=== PATIENT | female | born 1955 | race Caucasian/White ===

== ENCOUNTER → 2016-07-07 | Outpatient (CLI) | payer OTHER ==
[~2016-07-07] MED LIST: ALBU.5I NEB; ALBU0.08 NEB; ALBU0.086 INH; ATEN1TAB74 PO; ATEN50TA PO; AZIT250T3 PO; CIPR-9 PO; EXTR500C PO; EXTRTAB5 PO; IBUP800T23 PO; LISI-360 PO; LISI10TA3 PO; LOVA20TA PO; MACR100C2 PO; MELO7.5T4 PO; PRED20 PO; SIMV40TA PO; ZITHTAB PO
[2016-07-07 09:59] LABS: ALKALINE PHOSPHATASE 113 U/L (45-117); ALT (GPT) 57 U/L (10-53); ANION GAP 11 MEQ/L (5-15); AST (GOT) 97 U/L (15-37); BICARBONATE 25.4 MEQ/L (21.0-32.0); BLOOD UREA NITROGEN 14 MG/DL (7-18); CHLORIDE 103 MEQ/L (98-107); GLOMERULAR FILTRATION RATE 76 ML/MIN (>89); GLUCOSE,FASTING 88 MG/DL (74-99); HDL CHOLESTEROL 112.8 MG/DL (40.0-60.0); LDL CHOLESTEROL 198 MG/DL (0-99); POTASSIUM 3.7 MEQ/L (3.5-5.1); SODIUM (NA) 139 MEQ/L (136-145); TOTAL BILIRUBIN ADULT 0.4 MG/DL (0.2-1.0)
== END ==
LOC: CLAB 08:52
PROVIDERS: ATTEND Physician Assistant Medical
DX: M19.90 Unspecified osteoarthritis, unspecified site (principal); I10 Essential (primary) hypertension; F10.10 Alcohol abuse, uncomplicated; E78.5 Hyperlipidemia, unspecified
CPT/HCPCS: 36415; 80053; 80061; 84443

== ENCOUNTER 2016-09-09 09:14 | Emergency (ER) | payer OTHER ==
[~2016-09-09] VITALS: Ht 162.6 cm; Wt 68.0 kg
[~2016-09-09 09:14] MED LIST changes: -ALBU.5I NEB; -ALBU0.08 NEB; -ATEN1TAB74 PO; -AZIT250T3 PO; -CIPR-9 PO; -EXTR500C PO; -IBUP800T23 PO; -LISI-360 PO; -MACR100C2 PO; -MELO7.5T4 PO; -PRED20 PO; -SIMV40TA PO; -ZITHTAB PO
[2016-09-09 09:15] VITALS: BP 143/69; PULSE 78; RESP 15; TEMP 98.1; O2SAT 98
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
[2016-09-09] MEDS ORDERED: IBUP800T23 PO (09:41)
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
[2016-12-16] MEDS ORDERED: LOVA20TA PO (11:00)
[2016-12-16] MEDS ORDERED: ATEN50TA PO (11:00)
[2016-12-16] MEDS ORDERED: LISI10TA3 PO (11:00)
[2016-12-16] MEDS ORDERED: MELO7.5T4 PO (11:01)
[2016-12-16] MEDS ORDERED: ALBU.5I NEB (11:01)
[2016-12-16] MEDS ORDERED: ALBU0.08 NEB (13:57)
== END 2016-09-09 10:59 | disposition home or self-care (01) ==
LOC: NEPB 09:14
DX: S63.501A Unspecified sprain of right wrist, initial encounter (principal); S63.91XA Sprain of unspecified part of right wrist and hand, initial encounter; I10 Essential (primary) hypertension; E78.00 Pure hypercholesterolemia, unspecified; J44.9 Chronic obstructive pulmonary disease, unspecified; F17.210 Nicotine dependence, cigarettes, uncomplicated; W22.8XXA Striking against or struck by other objects, initial encounter; Y99.8 Other external cause status
CPT/HCPCS: 73110; 73130; 99283; L3908

== ENCOUNTER 2016-10-15 16:51 | Emergency (ER) | payer OTHER ==
[~2016-10-15] VITALS: Ht 162.6 cm; Wt 60.0 kg
[~2016-10-15 16:51] MED LIST changes: -ALBU0.086 INH; +IBUP800T23 PO
[2016-10-15 16:53] VITALS: BP 136/88; PULSE 72; RESP 16; TEMP 98.4; O2SAT 96
[2016-10-15 17:32] LABS: BACTERIA, URINE RARE /hpf; BLOOD, URINE NEG (NEG); COMMENT (UR) CULTURE INDICATED; CULTURE IF INDICATED CULTURE INDICATED; GLUCOSE,URINE NEG (NEG); KETONE, URINE NEG (NEG); SQUAMOUS EPITHELIAL CELL URINE <1 /hpf (0-5); URINE COLOR LIGHT-YELLOW (YELLW/STRAW)
[2016-10-15 17:33] LABS: NITRITE,URINE POS (NEG)
[2016-10-15] MEDS ORDERED: MACR100C2 PO (18:03)
--- NOTE | 2016-10-15 18:03 | PD ---
HPI Chief Complaint: Complaint Time Seen by Provider: 17:31 Travel History International Travel<30 days: No Contact w/Intl Traveler<30days: No Traveled to known affect area: No History of Present Illness HPI Patient is a 61 year old female who comes in complaining of lower abdominal pain , urgency and frequency that started this morning. She denies any fever or chills, nausea or vomiting. She denies any vaginal discharge. PFSH Past Medical History Arthritis: Yes Blood Disorders: No Anxiety: Yes Depression: Yes Heart Rhythm Problems: No Cancer: No Cardiac Catheterization: No Cardiovascular Problems: Yes (HTN ON MEDS) High Cholesterol: Yes Congestive Heart Failure: No COPD: Yes Diabetes: No Diminished Hearing: No Endocrine: No Gastrointestinal Disorders: Yes GERD: Yes Genitourinary: Yes (PROLAPSED BLADDER; URINARY INCONTINENCE) Hypertension: Yes Immune Disorder: No Musculoskeletal: No Neurologic: Yes Psychiatric: Yes Respiratory: Yes (PNEUMONIA MANY YRS AGO BRONCHITIS) Integumentary: Yes (RT KNEE ABSESS ? MRSA, L AXILLARY ABSCESS CURRENTLY BEING TREATED. ) Migraines: Yes Myocardial Infarction: No Menopausal: Yes : 4 Para: 2 Miscarriage: 2 Tubal Ligation: Yes Past Surgical History Abdominal Surgery: No Coronary Artery Bypass Graft: No Genitourinary Surgery: Yes (BLADDER REPAIR) Gynecologic Surgery: Yes Hysterectomy: Yes (PARTIAL 09/2007) Oral Surgery: Yes Tonsillectomy: Yes Family History Family Hypercholesterolemia: Yes Social History Alcohol Use: No Tobacco Use: Yes Substance Use: No Allergies-Medications (Allergen,Severity, Reaction): Coded Allergies: No Known Allergies (Verified , 10/15/16) Reported Meds & Prescriptions Reported Meds & Active Scripts Active Cipro (Ciprofloxacin HCl) 500 Mg Tab 500 Mg PO BID 5 Days Ibuprofen 800 Mg Tab 800 Mg PO Q6HR PRN Atenolol 50 Mg Tab 50 Mg PO DAILY Lisinopril 10 Mg Tab 10 Mg PO DAILY Lovastatin 20 Mg Tab 20 Mg PO DAILY Reported Extra Strength Pain Relief (Acetaminophen) 500 Mg Tab 1,000 Mg PO Q4-6H PRN Review of Systems General / Constitutional: No: Fever, Chills HENT: No: Headaches Cardiovascular: No: Chest Pain or Discomfort Respiratory: No: Shortness of Breath Gastrointestinal: Positive: Abdominal Pain, No: Nausea, Vomiting Genitourinary: Positive: Urgency, Frequency, Dysuria, No: Discharge Skin: No Rash, No Change in Pigmentation Physical Exam Narrative GENERAL: Awake and alert, in no acute distress. SKIN: Focused skin assessment warm/dry. HEAD: Atraumatic. Normocephalic. EYES: Pupils equal and round. No scleral icterus. ENT: Mucous membranes pink and moist. CARDIOVASCULAR: Regular rate and rhythm. No murmur appreciated. RESPIRATORY: No accessory muscle use. Clear to auscultation. Breath sounds equal bilaterally. GASTROINTESTINAL: Abdomen soft, nondistended. Mild suprapubic tenderness. No CVA tenderness. MUSCULOSKELETAL: No obvious deformities. No clubbing. No cyanosis. No edema. NEUROLOGICAL: Awake and alert. No obvious cranial nerve deficits. Motor grossly within normal limits. Normal speech. Data Data Last Documented VS Vital Signs Date Time Temp Pulse Resp B/P Pulse Ox O2 Delivery O2 Flow Rate FiO2 10/15/16 16:53 98.4 72 16 136/88 96 Orders Urinalysis - C+S If Indicated (10/15/16 17:05) Urine Culture (10/15/16 16:10) Ciprofloxacin (Cipro) (10/15/16 18:15) Labs Laboratory Tests Test 10/15/16 16:10 Urine Color LIGHT-YELLOW Urine Turbidity CLEAR Urine pH 6.0 Urine Specific [place] 1.006 Urine Protein NEG mg/dL Urine Glucose (UA) NEG mg/dL Urine Ketones NEG mg/dL Urine Occult Blood NEG Urine Nitrite POS Urine Bilirubin NEG Urine Urobilinogen LESS THAN 2.0 MG/DL Urine Leukocyte Esterase NEG Urine RBC 1 /hpf Urine WBC 1 /hpf Urine Squamous Epithelial <1 /hpf Cells Urine Bacteria RARE /hpf Microscopic Urinalysis Comment CULTURE INDICATED MDM Medical Decision Making Medical Screen Exam Complete: Yes Emergency Medical Condition: Yes Differential Diagnosis UTI versus pyelonephritis versus vaginitis Narrative Course Patient is a 61-year-old female comes in complaining of symptoms of a urinary tract infection. Exam shows some suprapubic tenderness, no CVA tenderness. Urinalysis is positive for nitrites. Patient has no systemic symptoms, vitals are all within normal limits. Patient will be discharged with prescription for Cipro, which is free at [facility] Advised to follow-up with her doctor. Advised to return to the ED as needed for any worsening symptoms. Diagnosis Primary Impression: Urinary tract infection Qualified Code: N30.00 - Acute cystitis without hematuria Patient Instructions: General Instructions, Urinary Tract Infection in Women ( ED) Additional Instructions: Take all of your antibiotic. Follow up with your doctor. Return to the ED as needed for any worsening symptoms. Scripts Ciprofloxacin (Cipro)500 Mg [id number] Mg PO BID 5 Days Ref 0 Prov:Jannie Judd MD 10/15/16 Disposition: 01 DISCHARGE HOME Condition: Stable Jannie Judd MD Oct 15, 2016 18:03
[2016-10-15] MEDS ORDERED: CIPR-9 PO (18:14)
[2016-10-15] MEDS ORDERED: CIPROFLOXACIN 500 MG TAB PO ONE (18:15)
[2016-12-16] MEDS ORDERED: ATEN50TA PO (11:00)
[2016-12-16] MEDS ORDERED: LOVA20TA PO (11:00)
[2016-12-16] MEDS ORDERED: LISI10TA3 PO (11:00)
[2016-12-16] MEDS ORDERED: ALBU.5I NEB (11:01)
[2016-12-16] MEDS ORDERED: MELO7.5T4 PO (11:01)
[2016-12-16] MEDS ORDERED: ALBU0.08 NEB (13:57)
== END 2016-10-15 18:22 | disposition home or self-care (01) ==
LOC: NEPD 16:51
DX: N39.0 Urinary tract infection, site not specified (principal); I10 Essential (primary) hypertension; J44.9 Chronic obstructive pulmonary disease, unspecified; E78.00 Pure hypercholesterolemia, unspecified; K21.9 Gastro-esophageal reflux disease without esophagitis; Z72.0 Tobacco use; B96.20 Unspecified Escherichia coli [E. coli] as the cause of diseases classified elsewhere
CPT/HCPCS: 81001; 87077; 87086; 87186; 99284

== ENCOUNTER 2016-11-04 17:11 | Emergency (ER) | payer OTHER ==
[~2016-11-04] VITALS: Ht 162.6 cm; Wt 65.0 kg
[~2016-11-04 17:11] MED LIST changes: +CIPR-9 PO
[2016-11-04 17:12] VITALS: BP 125/77; PULSE 76; RESP 16; TEMP 98.3; O2SAT 98
[2016-11-04] MEDS ORDERED: predniSONE 20 MG TAB PO STA (17:37)
[2016-11-04] MEDS ORDERED: PRED20 PO (17:41)
[2016-11-04] MEDS ORDERED: AZIT250T3 PO (17:41)
[2016-11-04] MEDS ORDERED: AZITHROMYCIN 250 MG TAB PO ONE (17:45)
--- NOTE | 2016-11-04 17:46 | PD ---
HPI Chief Complaint: Respiratory Symptoms Time Seen by Provider: 17:35 Travel History International Travel<30 days: No Contact w/Intl Traveler<30days: No Traveled to known affect area: No History of Present Illness HPI This is a 61-year-old female smoker with history of COPD/chronic bronchitis. She presents for evaluation of cough, worsened wheezing for 3-4 days. The cough is dry, worse tonight. Her wheezing seems to improve with the use of at home albuterol nebulizer solution. She has had this issue multiple times in the past, specifically she is requesting prednisone which seems to work excellently when she has these exacerbations, as well as an antibiotic. Denies any fevers, chills, shortness of breath, chest pain, recent travel, calf swelling. She has no other complaints at this time. PFSH Past Medical History Arthritis: Yes Blood Disorders: No Anxiety: Yes Depression: Yes Heart Rhythm Problems: No Cancer: No Cardiac Catheterization: No Cardiovascular Problems: Yes (HTN ) High Cholesterol: Yes Congestive Heart Failure: No COPD: Yes Diabetes: No Diminished Hearing: No Endocrine: No Gastrointestinal Disorders: Yes GERD: Yes Genitourinary: Yes (PROLAPSED BLADDER; URINARY INCONTINENCE) Hypertension: Yes Immune Disorder: No Musculoskeletal: No Neurologic: Yes Psychiatric: Yes Respiratory: Yes (BRONCHITIS , PNEUMONIA ) Integumentary: Yes (RT KNEE ABSESS ? MRSA, L AXILLARY ABSCESS CURRENTLY BEING TREATED. ) Migraines: Yes Myocardial Infarction: No ?: Not Menopausal: Yes : 4 Para: 2 Miscarriage: 2 Tubal Ligation: Yes Past Surgical History Abdominal Surgery: No Coronary Artery Bypass Graft: No Genitourinary Surgery: Yes (BLADDER REPAIR) Gynecologic Surgery: Yes Hysterectomy: Yes Oral Surgery: Yes Tonsillectomy: Yes Family History Family Hypercholesterolemia: Yes Social History Alcohol Use: No Tobacco Use: Yes Substance Use: No Allergies-Medications (Allergen,Severity, Reaction): Coded Allergies: No Known Allergies (Verified , 10/15/16) Reported Meds & Prescriptions Reported Meds & Active Scripts Active Prednisone 20 Mg Tab 20 Mg PO BID 5 Days Azithromycin 250 Mg Tab 250 Mg PO DAILY 4 Days Cipro (Ciprofloxacin HCl) 500 Mg Tab 500 Mg PO BID 5 Days Ibuprofen 800 Mg Tab 800 Mg PO Q6HR PRN Atenolol 50 Mg Tab 50 Mg PO DAILY Lisinopril 10 Mg Tab 10 Mg PO DAILY Lovastatin 20 Mg Tab 20 Mg PO DAILY Reported Extra Strength Pain Relief (Acetaminophen) 500 Mg Tab 1,000 Mg PO Q4-6H PRN Review of Systems Except as stated in HPI: all other systems reviewed are Neg Physical Exam Narrative GENERAL: This is a well-developed well-nourished female in no acute distress SKIN: Warm and dry. HEAD: Atraumatic. Normocephalic. EYES: Pupils equal and round. No scleral icterus. No injection or drainage. ENT: No nasal bleeding or discharge. Mucous membranes pink and moist. NECK: Trachea midline. No JVD. CARDIOVASCULAR: Regular rate and rhythm. No murmur appreciated. RESPIRATORY: No accessory muscle use. Clear to auscultation. Breath sounds equal bilaterally. There is wheezing bilaterally. No crackles. No tachypnea GASTROINTESTINAL: Abdomen soft, non-tender, nondistended. Hepatic and splenic margins not palpable. MUSCULOSKELETAL: No obvious deformities. No clubbing. No cyanosis. No edema. Data Data Last Documented VS Vital Signs Date Time Temp Pulse Resp B/P Pulse Ox O2 Delivery O2 Flow Rate FiO2 11/04/16 17:12 98.3 76 16 125/77 98 Orders Azithromycin (Zithromax) (11/04/16 17:45) Prednisone (Deltasone) (11/04/16 17:37) MDM Medical Decision Making Medical Screen Exam Complete: Yes Emergency Medical Condition: Yes Medical Record Reviewed: Yes Differential Diagnosis COPD exacerbation, bronchitis, pneumonia, reactive airway disease Narrative Course 61-year-old female presents with wheezing and dry cough for 3 days. Examination reveals mild wheezing bilaterally consistent with COPD exacerbation. Her vital signs are stable and she appears well. The plan would be to treat the patient with oral oral prednisone and azithromycin as well as albuterol nebulizer solution. She is declining DuoNeb therapy at this time because she has a bus that she wants to catch. She is stable for discharge. Diagnosis Primary Impression: COPD exacerbation Departure Forms: Tests/Procedures, Work Release Enter return to work date: November 05, 2016 Additional Instructions: Medication as prescribed. At home albuterol nebulizer as needed for wheezing. Follow up with primary care physician and return for any acutely new or worsening symptoms. Med/Other Pt SpecificInfo: Prescription(s) given Scripts Prednisone 20 Mg Tab20 Mg PO BID 5 Days Ref 0 Prov:Chi Cid MD 11/04/16 Azithromycin 250 Mg [id number] Mg PO DAILY 4 Days Ref 0 Prov:Chi Cid MD 11/04/16 Disposition: 01 DISCHARGE HOME Condition: Stable Mauro Greene November 04, 2016 17:45
[2016-12-16] MEDS ORDERED: ATEN50TA PO (11:00)
[2016-12-16] MEDS ORDERED: LISI10TA3 PO (11:00)
[2016-12-16] MEDS ORDERED: LOVA20TA PO (11:00)
[2016-12-16] MEDS ORDERED: MELO7.5T4 PO (11:01)
[2016-12-16] MEDS ORDERED: ALBU.5I NEB (11:01)
[2016-12-16] MEDS ORDERED: ALBU0.08 NEB (13:57)
== END 2016-11-04 18:23 | disposition home or self-care (01) ==
LOC: NEPD 17:11
DX: J44.1 Chronic obstructive pulmonary disease with (acute) exacerbation (principal); F17.210 Nicotine dependence, cigarettes, uncomplicated
CPT/HCPCS: 99282; J7512

== ENCOUNTER 2016-11-09 12:32 | Emergency (ER) | payer OTHER ==
[~2016-11-09] VITALS: Ht 162.6 cm; Wt 66.0 kg
[~2016-11-09 12:32] MED LIST changes: +AZIT250T3 PO; +PRED20 PO
[2016-11-09 12:36] VITALS: BP 106/75; PULSE 82; RESP 20; TEMP 97.2; O2SAT 98
--- NOTE | 2016-11-09 12:40 | PD ---
Physical Exam Date Seen by Provider: November 09, 2016 Time Seen by Provider: 12:37 Narrative 61 year old female presents to the emergency department for evaluation of shortness of breath, fatigue, tightness in chest, nausea, cough for 1 week ago. She reports history of COPD. Vital signs reviewed. Patient awaiting bed placement. [facility] Supervised Visit with DIONE: Charlene Johnson November 09, 2016 12:40
--- NOTE | 2016-11-09 13:29 | PD ---
HPI Chief Complaint: Respiratory Symptoms Time Seen by Provider: 13:29 Travel History International Travel<30 days: No Contact w/Intl Traveler<30days: No Traveled to known affect area: No History of Present Illness HPI 61-year-old with a history of chronic bronchitis/COPD, hypertension, hyperlipidemia presents to the emergency department for evaluation of productive cough, shortness of breath, weakness, subjective fever and chills. Patient states that she's had a cough with shortness of breath for the past 1.5 weeks. States that she has a history of chronic bronchitis and does continue to smoke cigarettes. States that her symptoms have been worsening. She was seen here in our emergency department 5 days ago and prescribed antibiotics and steroids but states she did not get these filled because she did not have the money. She denies any recent travel or sick contacts. States that she think she has pneumonia, has had pneumonia in the past with similar symptoms. She has been using albuterol nebulizer at home with minimal improvement of symptoms. No other complaints. PFSH Past Medical History Arthritis: Yes Blood Disorders: No Anxiety: Yes Depression: Yes Heart Rhythm Problems: No Cancer: No Cardiac Catheterization: No Cardiovascular Problems: Yes (HTN ) High Cholesterol: Yes Congestive Heart Failure: No COPD: Yes Diabetes: No Diminished Hearing: No Endocrine: No Gastrointestinal Disorders: Yes GERD: Yes Genitourinary: Yes (PROLAPSED BLADDER; URINARY INCONTINENCE) Hypertension: Yes Immune Disorder: No Musculoskeletal: No Neurologic: Yes Psychiatric: Yes Respiratory: Yes (BRONCHITIS , PNEUMONIA ) Integumentary: Yes (RT KNEE ABSESS ? MRSA, L AXILLARY ABSCESS CURRENTLY BEING TREATED. ) Migraines: Yes Myocardial Infarction: No ?: Not Menopausal: Yes : 4 Para: 2 Miscarriage: 2 Tubal Ligation: Yes Past Surgical History Abdominal Surgery: No Coronary Artery Bypass Graft: No Genitourinary Surgery: Yes (BLADDER REPAIR) Gynecologic Surgery: Yes Hysterectomy: Yes Oral Surgery: Yes Tonsillectomy: Yes Family History Family Hypercholesterolemia: Yes Social History Alcohol Use: No Tobacco Use: Yes (1/2 pack day) Substance Use: No Allergies-Medications (Allergen,Severity, Reaction): Coded Allergies: No Known Allergies (Verified , 11/09/16) Reported Meds & Prescriptions Reported Meds & Active Scripts Active Atenolol 50 Mg Tab 50 Mg PO DAILY Lisinopril 10 Mg Tab 10 Mg PO DAILY Lovastatin 20 Mg Tab 20 Mg PO DAILY Review of Systems Except as stated in HPI: all other systems reviewed are Neg Physical Exam Narrative GENERAL: Well-nourished and well-developed female patient in no acute distress who is nontoxic appearing. SKIN: Warm and dry. HEAD: Normocephalic and atraumatic. EYES: No injection, drainage, or hyphema noted. PERRLA. EOMI. ENT: No nasal drainage noted. Oropharynx is clear. NECK: Supple and the trachea is midline. CARDIOVASCULAR: Regular rate and rhythm. RESPIRATORY: Bilateral wheezing and rhonchi throughout. No accessory muscle use. GASTROINTESTINAL: Abdomen is soft, non-tender, and nondistended. MUSCULOSKELETAL: No obvious deformities, swelling, cyanosis, or ecchymosis is present throughout the upper and lower extremities. Patient has full range of motion without any signs of neurovascular compromise. NEUROLOGICAL: Awake, alert, and oriented. Normal speech and gait. Cranial nerves are grossly intact. Data Data Last Documented VS Vital Signs Date Time Temp Pulse Resp B/P Pulse Ox O2 Delivery O2 Flow Rate FiO2 11/09/16 13:52 98 21 11/09/16 12:36 97.2 82 20 106/75 Orders Complete Blood Count With Diff (11/09/16 13:26) Iv Access Insert/Monitor (11/09/16 13:26) Electrocardiogram (11/09/16 13:26) Ecg Monitoring (11/09/16 13:26) Oximetry (11/09/16 13:26) Chest, Pa & Lat (11/09/16 13:26) Sodium Chloride 0.9% Flush (Ns Flush) (11/09/16 13:30) Methylprednisolone So Succ Inj (Solumedr (11/09/16 13:30) Albuterol-Ipratropium Neb (Duoneb Neb) (11/09/16 13:30) Basic Metabolic Panel (Bmp) (11/09/16 13:26) Lactic Acid Sepsis Protocol (11/09/16 13:30) Azithromycin Inj (Zithromax Inj) (11/09/16 13:45) Potassium Chloride Eff (K-Lyte Cl Eff) (11/09/16 14:45) Labs Laboratory Tests Test 11/09/16 13:52 White Blood Count 5.4 TH/MM3 Red Blood Count 4.19 MIL/MM3 Hemoglobin 14.1 GM/DL Hematocrit 41.0 % Mean Corpuscular Volume 97.7 FL Mean Corpuscular Hemoglobin 33.6 PG Mean Corpuscular Hemoglobin 34.4 % Concent Red Cell Distribution Width 14.9 % Platelet Count 183 TH/MM3 Mean Platelet Volume 9.1 FL Neutrophils (%) (Auto) 59.6 % Lymphocytes (%) (Auto) 27.2 % Monocytes (%) (Auto) 10.7 % Eosinophils (%) (Auto) 1.8 % Basophils (%) (Auto) 0.7 % Neutrophils # (Auto) 3.2 TH/MM3 Lymphocytes # (Auto) 1.5 TH/MM3 Monocytes # (Auto) 0.6 TH/MM3 Eosinophils # (Auto) 0.1 TH/MM3 Basophils # (Auto) 0.0 TH/MM3 CBC Comment DIFF FINAL Differential Comment Sodium Level 141 MEQ/L Potassium Level 3.3 MEQ/L Chloride Level 105 MEQ/L Carbon Dioxide Level 27.6 MEQ/L Anion Gap 8 MEQ/L Blood Urea Nitrogen 16 MG/DL Creatinine 0.88 MG/DL Estimat Glomerular Filtration 66 ML/MIN Rate Random Glucose 94 MG/DL Lactic Acid Level 1.4 mmol/L Calcium Level 8.9 MG/DL [facility] Medical Decision Making Medical Screen Exam Complete: Yes Emergency Medical Condition: Yes Differential Diagnosis COPD exacerbation versus pneumonia versus acute on chronic bronchitis versus viral illness Narrative Course 61-year-old female presents to the emergency department for evaluation of cough , shortness of breath, weakness and subjective fevers. Patient is afebrile. Vital signs are stable. On physical examination she does have wheezing and rhonchi. She was seen here 5 days ago and prescribed antibiotics and steroids but did not get these medications filled. IV access is obtained, labs were drawn and sent. Patient is administered Solu-Medrol 125 mg IV, Zithromax 500 mg IV and DuoNebs EKG shows sinus rhythm with no acute ST elevations or depressions. CBC is unremarkable. BMP shows mild hypokalemia with a potassium of 3.3, otherwise unremarkable. This is repleted orally here in the ED. Lactic acid is unremarkable. Chest x-ray is negative for any acute abnormalities. Patient reassessed and her wheezing has improved, she reports improvement of symptoms as well. Oxygen saturations is 99% on room air. Patient will be discharged with prednisone, Zithromax and albuterol nebs. She is given coupons for these prescriptions. Counseled on smoking cessation. Advised follow-up with her PCP. Patient verbalizes understanding and agreement with treatment plan. Diagnosis Primary Impression: COPD exacerbation Referrals: Primary Care Physician Patient Instructions: COPD (Chronic Obstructive Pulmonary Disease) (ED), General Instructions Additional Instructions: Stop smoking cigarettes. Use nebulizer every 4-6 hours as prescribed. Take medications as prescribed with food and a full glass of water. Follow-up with your Primary Care Physician. Return to the ED for any acute worsening of symptoms. Med/Other Pt SpecificInfo: Prescription(s) given Disposition: 01 DISCHARGE HOME Condition: Stable Meagan Chance November 09, 2016 13:29
[2016-11-09] MEDS ORDERED: SODIUM CHLORIDE 0.9% FLUSH 10 ML FLUSH IVF PRN (13:30)
[2016-11-09] MEDS ORDERED: methylPREDNISolone SOD SUCC 125 MG/2 ML VIAL IVP ONE (13:30)
[2016-11-09] MEDS: RESP: ALBUTEROL 2.5 MG/IPRATROPIUM 0.5 MG NEB (SCH) INH (13:44)
[2016-11-09] MEDS ORDERED: AZITHROMYCIN INJ 500 MG in SODIUM CHLOR 0.9% 250 ML INJ 250 ML IV ONE (13:45)
[2016-11-09 13:52] VITALS: O2SAT 98
[2016-11-09 14:12] LABS: AUTOMATED NEUTROPHIL # 3.2 TH/MM3 (1.8-7.7); BASOPHIL % 0.7 % (0.0-2.0); EOSINOPHIL # 0.1 TH/MM3 (0-0.4); EOSINOPHIL % 1.8 % (0.0-4.0); HEMO FLAGS DIFF FINAL; LYMPH % 27.2 % (9.0-44.0); LYMPHOCYTE # 1.5 TH/MM3 (1.0-4.8); MEAN CELL VOLUME 97.7 FL (80.0-100.0); MEAN CORPUSCULAR HEMOGLOBIN 33.6 PG (27.0-34.0); MEAN CORPUSCULAR HGB CONC 34.4 % (32.0-36.0); MONO % 10.7 % (0.0-8.0); NEUT % 59.6 % (16.0-70.0); PLATELET COUNT 183 TH/MM3 (150-450); RED BLOOD COUNT 4.19 MIL/MM3 (4.00-5.30); RED CELL DISTRIBUTION WIDTH 14.9 % (11.6-17.2); WHITE BLOOD COUNT 5.4 TH/MM3 (4.0-11.0)
[2016-11-09 14:29] LABS: BICARBONATE 27.6 MEQ/L (21.0-32.0); POTASSIUM 3.3 MEQ/L (3.5-5.1)
[2016-11-09] MEDS ORDERED: POTASSIUM CHLORIDE 25 MEQ EFFERVESCENT TAB PO ONE (14:45)
--- NOTE | 2016-11-09 14:58 | RADRPT ---
EXAM DATE/TIME: 11/09/2016 14:56 [facility] COMPARISON: CHEST PA & LAT, May 30, 2015, 20:15. INDICATIONS : Short of breath, cough x 1.5 weeks. MEDICAL HISTORY : Arthritis. Hypertension Hypercholesterolemia. COPD. GERD. Prolapsed bladder. SURGICAL HISTORY : Tonsillectomy. Tubal ligation. Hysterectomy. Bladder repair. ENCOUNTER: Initial ACUITY: 2 weeks PAIN SCORE: 0/10 LOCATION: chest FINDINGS: PA and lateral views of the chest demonstrate the lungs to be symmetrically aerated without evidence of mass, infiltrate or effusion. The cardiomediastinal contours are unremarkable. Osseous structure s are intact. CONCLUSION: No acute disease. Piero Laughlin MD FACR on November 09, 2016 at 14:55 Board Certified Radiologist. This report was verified electronically.
[2016-11-09] MEDS ORDERED: PRED20 PO (15:09)
[2016-11-09] MEDS ORDERED: ALBU.5I NEB (15:09)
[2016-11-09] MEDS ORDERED: ZITHTAB PO (15:09)
--- NOTE | 2016-11-10 16:03 | EKG ---
Date Performed: 11/09/2016 Time Performed: 13:48:22 PTAGE: 61 years EKG: Sinus rhythm NONSPECIFIC ST & T-WAVE ABNORMALITY BORDERLINE ECG PREVIOUS TRACING : 12/23/2014 15.09 Compared to prior tracing no significant change DOCTOR: Pito Pope Interpretating Date/Time 11/10/2016 16:01:57
[2016-12-16] MEDS ORDERED: LOVA20TA PO (11:00)
[2016-12-16] MEDS ORDERED: LISI10TA3 PO (11:00)
[2016-12-16] MEDS ORDERED: ATEN50TA PO (11:00)
[2016-12-16] MEDS ORDERED: MELO7.5T4 PO (11:01)
[2016-12-16] MEDS ORDERED: ALBU.5I NEB (11:01)
[2016-12-16] MEDS ORDERED: ALBU0.08 NEB (13:57)
== END 2016-11-09 16:00 | disposition home or self-care (01) ==
LOC: NEPD 12:32
DX: J44.1 Chronic obstructive pulmonary disease with (acute) exacerbation (principal); I10 Essential (primary) hypertension; E78.5 Hyperlipidemia, unspecified; F17.210 Nicotine dependence, cigarettes, uncomplicated; E78.00 Pure hypercholesterolemia, unspecified; K21.9 Gastro-esophageal reflux disease without esophagitis
CPT/HCPCS: 71020; 80048; 83605; 85025; 93005; 94640; 94664; 96374; 96375; 99284; J0456; J2930; J7050

== ENCOUNTER → 2016-11-25 | Outpatient (CLI) | payer OTHER ==
[~2016-11-25] MED LIST changes: +ALBU.5I NEB; +ALBU0.08 NEB; -AZIT250T3 PO; -CIPR-9 PO; -EXTRTAB5 PO; -IBUP800T23 PO; +MELO7.5T4 PO; +ZITHTAB PO
[2016-11-25 09:18] LABS: HEMATOCRIT 40.4 % (35.0-46.0); MEAN CELL VOLUME 98.5 FL (80.0-100.0); MEAN CORPUSCULAR HEMOGLOBIN 34.9 PG (27.0-34.0); MEAN CORPUSCULAR HGB CONC 35.4 % (32.0-36.0); PLATELET COUNT 258 TH/MM3 (150-450); RED BLOOD COUNT 4.11 MIL/MM3 (4.00-5.30); RED CELL DISTRIBUTION WIDTH 15.9 % (11.6-17.2); REVIEW FLAG FINAL
[2016-11-25 09:50] LABS: ALKALINE PHOSPHATASE 104 U/L (45-117); ALT (GPT) 32 U/L (10-53); ANION GAP 10 MEQ/L (5-15); AST (GOT) 41 U/L (15-37); BICARBONATE 22.9 MEQ/L (21.0-32.0); BLOOD UREA NITROGEN 11 MG/DL (7-18); CHLORIDE 106 MEQ/L (98-107); GLOMERULAR FILTRATION RATE 80 ML/MIN (>89); GLUCOSE,FASTING 89 MG/DL (74-99); HDL CHOLESTEROL 104.4 MG/DL (40.0-60.0); LDL CHOLESTEROL 213 MG/DL (0-99); POTASSIUM 3.4 MEQ/L (3.5-5.1); SODIUM (NA) 139 MEQ/L (136-145); TOTAL BILIRUBIN ADULT 0.5 MG/DL (0.2-1.0)
== END ==
LOC: CLAB 09:01
PROVIDERS: ATTEND Nurse Practitioner Family
DX: E78.5 Hyperlipidemia, unspecified (principal); I10 Essential (primary) hypertension; F10.20 Alcohol dependence, uncomplicated
CPT/HCPCS: 36415; 80053; 80061; 85027

== ENCOUNTER 2017-03-24 20:48 | Emergency (ER) | payer OTHER ==
[~2017-03-24] VITALS: Ht 162.6 cm; Wt 70.0 kg
[~2017-03-24 20:48] MED LIST changes: -ALBU.5I NEB; -ATEN50TA PO; +MELO-1 PO; -MELO7.5T4 PO; +METO25TA3 PO; -PRED20 PO; -ZITHTAB PO
[2017-03-24 20:51] VITALS: BP 198/110; PULSE 103; RESP 16; TEMP 98.8; O2SAT 98
[2017-03-24] MEDS ORDERED: SODIUM CHLOR 0.9% 1000 ML INJ 1,000 ML IV SCH (21:06)
[2017-03-24] MEDS ORDERED: FAMOTIDINE 20 MG/2 ML VIAL IV PUSH ONE (21:15)
[2017-03-24] MEDS ORDERED: ONDANSETRON HCL 4 MG/2 ML VIAL IVP ONE (21:15)
[2017-03-24] MEDS ORDERED: LIDOCAINE VISCOUS 2% SOLN 15 ML UDC PO ONE (21:15)
[2017-03-24] MEDS ORDERED: PANTOPRAZOLE SODIUM 40 MG VIAL IVP ONE (21:15)
[2017-03-24] MEDS ORDERED: ALUMINUM/MAGNESIUM/SIMETH 30 ML CUP PO ONE (21:15)
--- NOTE | 2017-03-24 21:36 | PD ---
HPI Chief Complaint: GI Complaint Time Seen by Provider: 21:32 Travel History International Travel<30 days: No Contact w/Intl Traveler<30days: No Traveled to known affect area: No History of Present Illness HPI 61-year-old female that presents to the ED for evaluation of upper abdominal discomfort and possible sinusitis. Per patient she's had nausea and vomiting and diarrhea for the past 4 days. Per patient she originally thought that she might have eaten "bad hot dog ". Per patient she wasn't sure if this was related but continued to have the symptoms and she also developed some congestion as well as cough and she states that she's had similar episodes before and was diagnosed with sinusitis and was given medications to make her better. Per patient she feels a sensation of "sickness" from the stomach to the throat. She cannot really describe it to me other than stating that he feels "sick". She states that she hasn't actually had vomited but she actually feels nauseous and tried to make herself vomit to make herself feel better. Per patient diarrhea is better. She states the discomfort is 4 out of 10. Per patient she has no urinary symptoms. No blood from either end. No fevers chills or sweats. She does have a history of COPD. She is also concerned about mold in her house. PFSH Past Medical History Arthritis: Yes Blood Disorders: No Anxiety: Yes Depression: Yes Heart Rhythm Problems: No Cancer: No Cardiac Catheterization: No Cardiovascular Problems: Yes (HTN) High Cholesterol: Yes Congestive Heart Failure: No COPD: Yes Diabetes: No Diminished Hearing: No Endocrine: No Gastrointestinal Disorders: Yes GERD: Yes Genitourinary: Yes (PROLAPSED BLADDER; URINARY INCONTINENCE) Hypertension: Yes Immune Disorder: No Musculoskeletal: No Neurologic: Yes Psychiatric: Yes Respiratory: Yes (BRONCHITIS , PNEUMONIA ) Integumentary: Yes (RT KNEE ABSESS ? MRSA, L AXILLARY ABSCESS CURRENTLY BEING TREATED. ) Immunizations Current: Yes Migraines: Yes Myocardial Infarction: No Menopausal: Yes : 4 Para: 2 Miscarriage: 2 Tubal Ligation: Yes Past Surgical History Abdominal Surgery: No Coronary Artery Bypass Graft: No Genitourinary Surgery: Yes (BLADDER REPAIR) Gynecologic Surgery: Yes Hysterectomy: Yes Oral Surgery: Yes Tonsillectomy: Yes Family History Family Hypercholesterolemia: Yes Social History Alcohol Use: No Tobacco Use: Yes (1/2 pack day) Substance Use: No Allergies-Medications (Allergen,Severity, Reaction): Coded Allergies: No Known Allergies (Verified , 03/24/17) Reported Meds & Prescriptions Reported Meds & Active Scripts Active Zantac (Ranitidine HCl) 150 Mg Tab 150 Mg PO BID Zofran (Ondansetron HCl) 4 Mg Tab 4 Mg PO Q6HR PRN Amoxicillin 875 Mg Tab 875 Mg PO BID 10 Days Metoprolol Tartrate 25 Mg Tab 25 Mg PO BID Meloxicam 15 Mg Tab 15 Mg PO DAILY Albuterol Neb (Albuterol Sulfate) 2.5 Mg/3 Ml Neb 2.5 Mg NEB Q4HR NEB PRN Lisinopril 10 Mg Tab 10 Mg PO DAILY Lovastatin 20 Mg Tab 20 Mg PO DAILY Review of Systems Except as stated in HPI: all other systems reviewed are Neg Physical Exam Narrative GENERAL: Well-nourished, well-developed patient in no apparent distress. SKIN: Warm and dry. HEAD: Atraumatic. Normocephalic. EYES: Pupils equal and round reactive to light and accommodation. No scleral icterus. No injection or drainage. ENT: No nasal bleeding or discharge. Mucous membranes pink and moist. TMs are clear with no sign of infection or perforation. No mastoid tenderness. Ear canals are intact bilaterally. No lymphadenopathy. Nostril mucosa is red and moist with clear mucus noted. No sinus tenderness to palpation noted. Tonsils are not enlarged or swollen. No ulvua Deviation. Tongue is midline. NECK: Trachea midline. No JVD. No meningeal signs noted CARDIOVASCULAR: Regular rate and rhythm. RESPIRATORY: No accessory muscle use. Clear to auscultation. Breath sounds equal bilaterally. GASTROINTESTINAL: Abdomen soft, non-tender, nondistended. Hepatic and splenic margins not palpable. MUSCULOSKELETAL: Extremities without clubbing, cyanosis, or edema. No obvious deformities. Full range of motion of the upper and lower extremity is bilaterally. 2+ pulses bilaterally. NEUROLOGICAL: Awake and alert. No obvious cranial nerve deficits. Motor grossly within normal limits. Five out of 5 muscle strength in the arms and legs. Normal speech. PSYCHIATRIC: Appropriate mood and affect; insight and judgment normal. Data Data Last Documented VS Vital Signs Date Time Temp Pulse Resp B/P (MAP) Pulse Ox O2 Delivery O2 Flow Rate FiO2 03/24/17 20:51 98.8 103 16 198/110 (139) 98 Room Air Orders Orders Iv Access Insert/Monitor (03/24/17 21:06) Ondansetron Inj (Zofran Inj) (03/24/17 21:15) Pantoprazole Inj (Protonix Inj) (03/24/17 21:15) Sodium Chlor 0.9% 1000 Ml Inj (Ns 1000 M (03/24/17 21:06) Famotidine Inj (Pepcid Inj) (03/24/17 21:15) Al-Mag Hy-Si 40-40-4 Mg/Ml Liq (Mag-Al P (03/24/17 21:15) Lidocaine 2% Viscous (Xylocaine 2% Visco (03/24/17 21:15) Chest, Single Ap (03/24/17 ) Complete Blood Count With Diff (03/24/17 21:31) Comprehensive Metabolic Panel (03/24/17 21:31) Lipase (03/24/17 21:31) Labs Laboratory Tests Test 03/24/17 21:20 White Blood Count 7.5 TH/MM3 Red Blood Count 4.44 MIL/MM3 Hemoglobin 15.6 GM/DL Hematocrit 45.2 % Mean Corpuscular Volume 101.8 FL Mean Corpuscular Hemoglobin 35.1 PG Mean Corpuscular Hemoglobin Concent 34.5 % Red Cell Distribution Width 14.8 % Platelet Count 247 TH/MM3 Mean Platelet Volume 9.1 FL Neutrophils (%) (Auto) 79.9 % Lymphocytes (%) (Auto) 7.8 % Monocytes (%) (Auto) 10.9 % Eosinophils (%) (Auto) 0.5 % Basophils (%) (Auto) 0.9 % Neutrophils # (Auto) 6.0 TH/MM3 Lymphocytes # (Auto) 0.6 TH/MM3 Monocytes # (Auto) 0.8 TH/MM3 Eosinophils # (Auto) 0.0 TH/MM3 Basophils # (Auto) 0.1 TH/MM3 CBC Comment DIFF FINAL Differential Comment Blood Urea Nitrogen 7 MG/DL Creatinine 0.84 MG/DL Random Glucose 91 MG/DL Total Protein 7.7 GM/DL Albumin 4.0 GM/DL Calcium Level 9.4 MG/DL Alkaline Phosphatase 134 U/L Aspartate Amino Transf (AST/SGOT) 169 U/L Alanine Aminotransferase (ALT/SGPT) 63 U/L Total Bilirubin 0.6 MG/DL Sodium Level 135 MEQ/L Potassium Level 3.7 MEQ/L Chloride Level 104 MEQ/L Carbon Dioxide Level 21.6 MEQ/L Anion Gap 9 MEQ/L Estimat Glomerular Filtration Rate 69 ML/MIN Lipase 115 U/L MDM Medical Decision Making Medical Screen Exam Complete: Yes Emergency Medical Condition: Yes Medical Record Reviewed: Yes Interpretation(s) CBC & BMP Diagram 03/24/17 21:20 Total Protein 7.7, Albumin 4.0, Calcium Level 9.4, Alkaline Phosphatase 134 H, Aspartate Amino Transf (AST/SGOT) 169 H, Alanine Aminotransferase (ALT/SGPT) 63 H, Total Bilirubin 0.6 Differential Diagnosis Abdominal pain versus epigastric pain versus gastritis versus gastroenteritis versus sinusitis versus pneumonia versus pancreatitis Narrative Course 61-year-old female that presents to the ED for evaluation of nausea and vomited and abdominal pain as well as congestion. Patient was properly examined and was found to have signs and symptoms which appear to be consistent with possible gastroenteritis versus gastritis versus pancreatitis versus sinusitis. At this time I recommend labs and imaging. Patient agrees with this. Patient was given IV pain medications and fluids. Labs were ordered. Labs showed slightly elevated LFTs otherwise unremarkable. Lipase is within normal limits. No sign of electrolyte abnormality. Patient was reassessed and feels improved. Patient will be sent home with prescriptions for amoxicillin, Zantac , Zofran. Told to follow with PCP. See ED worsening symptoms. Take plenty of fluids. All questions were answered to the best of my ability. Diagnosis Primary Impression: Gastritis Qualified Codes: K29.20 - Alcoholic gastritis without bleeding Additional Impressions: Sinusitis Qualified Codes: J01.10 - Acute frontal sinusitis, unspecified Nausea Patient Instructions: General Instructions Additional Instructions: Follow with her doctor. See ED worsening symptoms. Take medications as prescribed. Drink plenty of fluids. Med/Other Pt SpecificInfo: Prescription(s) given Scripts Ranitidine (Zantac) 150 Mg Tab 150 MG PO BID for Reduce Stomach Acid, #20 TAB 0 Refills Prov: Fadi Waters MD 03/24/17 Ondansetron (Zofran) 4 Mg Tab 4 MG PO Q6HR Y for NAUSEA OR VOMITING, #14 TAB 0 Refills Prov: Fadi Waters MD 03/24/17 Amoxicillin (Amoxicillin) 875 Mg Tab 875 MG PO BID for Infection for 10 Days, #20 TAB 0 Refills Prov: Fadi Waters MD 03/24/17 Disposition: 01 DISCHARGE HOME Condition: Puneet Liu Mar 24, 2017 21:36
--- NOTE | 2017-03-24 21:40 | RADRPT ---
EXAM DATE/TIME: 03/24/2017 21:10 [facility] COMPARISON: CHEST PA & LAT, November 09, 2016, 14:56. INDICATIONS : Short of breath. MEDICAL HISTORY : Chronic obstructive pulmonary disease. Hypertension SURGICAL HISTORY : None. ENCOUNTER: Initial ACUITY: 4 - 6 days PAIN SCORE: 0/10 LOCATION: Bilateral chest FINDINGS: Minimal bibasilar atelectasis and/or scarring is noted. The heart and mediastinal structures are nor mal. The pulmonary vascular pattern is also normal. CONCLUSION: 1. Minimal bibasilar atelectasis and/or fibrotic scarring. 2. No focal alveolar consolidation or pulmonary edema. Mak Robledo MD on March 24, 2017 at 21:29 Board Certified Radiologist. This report was verified electronically.
[2017-03-24] MEDS ORDERED: AMOX875T PO (21:51)
[2017-03-24] MEDS ORDERED: ZOFR4TAB PO (21:51)
[2017-03-24 21:53] LABS: BASOPHIL # 0.1 TH/MM3 (0-0.2); BASOPHIL % 0.9 % (0.0-2.0); EOSINOPHIL % 0.5 % (0.0-4.0); HEMATOCRIT 45.2 % (35.0-46.0); HEMO FLAGS DIFF FINAL; LYMPH % 7.8 % (9.0-44.0); LYMPHOCYTE # 0.6 TH/MM3 (1.0-4.8); MEAN CELL VOLUME 101.8 FL (80.0-100.0); MEAN CORPUSCULAR HEMOGLOBIN 35.1 PG (27.0-34.0); MEAN CORPUSCULAR HGB CONC 34.5 % (32.0-36.0); MONO % 10.9 % (0.0-8.0); NEUT % 79.9 % (16.0-70.0); PLATELET COUNT 247 TH/MM3 (150-450); RED BLOOD COUNT 4.44 MIL/MM3 (4.00-5.30); RED CELL DISTRIBUTION WIDTH 14.8 % (11.6-17.2); WHITE BLOOD COUNT 7.5 TH/MM3 (4.0-11.0)
[2017-03-24 22:15] LABS: ANION GAP 9 MEQ/L (5-15); AST (GOT) 169 U/L (15-37); BICARBONATE 21.6 MEQ/L (21.0-32.0); BLOOD UREA NITROGEN 7 MG/DL (7-18); CHLORIDE 104 MEQ/L (98-107); GLOMERULAR FILTRATION RATE 69 ML/MIN (>89); POTASSIUM 3.7 MEQ/L (3.5-5.1); SODIUM (NA) 135 MEQ/L (136-145)
[2017-03-24 22:17] LABS: ALT (GPT) 63 U/L (10-53)
[2017-03-24 22:18] LABS: ALKALINE PHOSPHATASE 134 U/L (45-117); TOTAL BILIRUBIN ADULT 0.6 MG/DL (0.2-1.0)
[2017-03-24] MEDS ORDERED: ZANT150T2 PO (22:18)
[2017-03-24] MEDS ORDERED: ONDANSETRON ODT 4 MG TAB PO ONE (22:30)
== END 2017-03-24 23:01 | disposition home or self-care (01) ==
LOC: NEPE 20:48
DX: K29.70 Gastritis, unspecified, without bleeding (principal); J01.10 Acute frontal sinusitis, unspecified; R05 Cough; I10 Essential (primary) hypertension; E78.00 Pure hypercholesterolemia, unspecified; F17.200 Nicotine dependence, unspecified, uncomplicated; Z87.39 Personal history of other diseases of the musculoskeletal system and connective tissue; Z87.09 Personal history of other diseases of the respiratory system; Z86.59 Personal history of other mental and behavioral disorders; Z86.79 Personal history of other diseases of the circulatory system; Z87.19 Personal history of other diseases of the digestive system; Z87.448 Personal history of other diseases of urinary system; Z86.69 Personal history of other diseases of the nervous system and sense organs; Z87.2 Personal history of diseases of the skin and subcutaneous tissue
CPT/HCPCS: 71010; 80053; 83690; 85025; 96361; 96374; 96375; 99284; C9113; J2405; J7030

== ENCOUNTER 2017-05-30 07:52 | Emergency (ER) | payer OTHER ==
[~2017-05-30] VITALS: Ht 162.6 cm; Wt 67.0 kg
[~2017-05-30 07:52] MED LIST changes: +AMOX875T PO; -MELO-1 PO; +MELO15TA20 PO; +ZANT150T2 PO; +ZOFR4TAB PO
[2017-05-30 07:53] VITALS: BP 169/102; PULSE 121; RESP 17; TEMP 100; O2SAT 100
[2017-05-30 08:13] VITALS: BP 125/84; PULSE 111; RESP 20; O2SAT 100
[2017-05-30] MEDS ORDERED: SODIUM CHLOR 0.9% 1000 ML INJ 1,000 ML IV SCH (08:18)
--- NOTE | 2017-05-30 08:24 | PD ---
HPI Chief Complaint: Complaint Time Seen by Provider: 08:21 Travel History International Travel<30 days: No Contact w/Intl Traveler<30days: No Traveled to known affect area: No History of Present Illness HPI 61-year-old female patient with history of hypertension, presents to the ER today for several days history of lower abdominal discomfort with radiation to the back, nausea, burning on urination and urinary urgency. She denies any vomiting, diarrhea, or other issues. Pain is rated a 10 out of 10. Modifying Factors: None Associated Signs & Symptoms: Urinary symptoms, lower abdominal and back pain Risk Factors: None PFSH Past Medical History Arthritis: Yes Blood Disorders: No Anxiety: Yes Depression: Yes Heart Rhythm Problems: No Cancer: No Cardiac Catheterization: No Cardiovascular Problems: Yes (HTN) High Cholesterol: Yes Congestive Heart Failure: No COPD: Yes Diabetes: No Diminished Hearing: No Endocrine: No Gastrointestinal Disorders: Yes GERD: Yes Genitourinary: Yes (PROLAPSED BLADDER; URINARY INCONTINENCE) Hypertension: Yes Immune Disorder: No Musculoskeletal: No Neurologic: Yes Psychiatric: Yes Respiratory: Yes (BRONCHITIS , PNEUMONIA ) Integumentary: Yes (RT KNEE ABSESS ? MRSA, L AXILLARY ABSCESS CURRENTLY BEING TREATED. ) Immunizations Current: Yes Migraines: Yes Myocardial Infarction: No ?: Not Menopausal: Yes : 4 Para: 2 Miscarriage: 2 Tubal Ligation: Yes Past Surgical History Abdominal Surgery: No Coronary Artery Bypass Graft: No Genitourinary Surgery: Yes (BLADDER REPAIR) Gynecologic Surgery: Yes Hysterectomy: Yes Oral Surgery: Yes Tonsillectomy: Yes Family History Family Hypercholesterolemia: Yes Social History Alcohol Use: Yes (occas) Tobacco Use: Yes (1/2 pack day) Substance Use: No Allergies-Medications (Allergen,Severity, Reaction): Coded Allergies: No Known Allergies (Verified Adverse Reaction, Unknown, 05/30/17) Reported Meds & Prescriptions Reported Meds & Active Scripts Active Zantac (Ranitidine HCl) 150 Mg Tab 150 Mg PO BID Metoprolol Tartrate 25 Mg Tab 25 Mg PO BID Meloxicam 15 Mg Tab 15 Mg PO DAILY Albuterol Neb (Albuterol Sulfate) 2.5 Mg/3 Ml Neb 2.5 Mg NEB Q4HR NEB PRN Lisinopril 10 Mg Tab 10 Mg PO DAILY Lovastatin 20 Mg Tab 20 Mg PO DAILY Review of Systems Except as stated in HPI: all other systems reviewed are Neg Physical Exam Narrative GENERAL: Well-developed elderly white female patient currently in mild distress. Awake and oriented 3. SKIN: Focused skin assessment warm/dry. HEAD: Atraumatic. Normocephalic. EYES: Pupils equal and round. No scleral icterus. No injection or drainage. ENT: No nasal bleeding or discharge. Mucous membranes pink and moist. NECK: Trachea midline. No JVD. CARDIOVASCULAR: Regular rate and rhythm. No murmur appreciated. RESPIRATORY: No accessory muscle use. Clear to auscultation. Breath sounds equal bilaterally. GASTROINTESTINAL: Abdomen soft, mild suprapubic tenderness without guarding or rebound, nondistended. Hepatic and splenic margins not palpable. MUSCULOSKELETAL: No obvious deformities. No clubbing. No cyanosis. No edema. NEUROLOGICAL: Awake and alert. No obvious cranial nerve deficits. Motor grossly within normal limits. Normal speech. PSYCHIATRIC: Appropriate mood and affect; insight and judgment normal. Data Data Last Documented VS Vital Signs Date Time Temp Pulse Resp B/P (MAP) Pulse Ox O2 Delivery O2 Flow Rate FiO2 05/30/17 08:13 111 20 125/84 (98) 100 Room Air 05/30/17 07:53 100.0 Orders Orders Complete Blood Count With Diff (05/30/17 08:18) Comprehensive Metabolic Panel (05/30/17 08:18) Lipase (05/30/17 08:18) Urinalysis - C+S If Indicated (05/30/17 08:18) Iv Access Insert/Monitor (05/30/17 08:18) Ecg Monitoring (05/30/17 08:18) Oximetry (05/30/17 08:18) Sodium Chlor 0.9% 1000 Ml Inj (Ns 1000 M (05/30/17 08:18) Sodium Chloride 0.9% Flush (Ns Flush) (05/30/17 08:30) Ketorolac Inj (Toradol Inj) (05/30/17 08:30) Ondansetron Inj (Zofran Inj) (05/30/17 08:30) Urine Culture (05/30/17 08:20) Blood Culture (05/30/17 08:53) Lactic Acid Sepsis Protocol (05/30/17 08:53) Piperacil-Tazo 4.5 Gm Premix (Zosyn 4.5 (05/30/17 08:53) Ed Discharge Order (05/30/17 09:52) Labs Laboratory Tests Test 05/30/17 08:20 05/30/17 09:05 White Blood Count 14.0 TH/MM3 Red Blood Count 4.41 MIL/MM3 Hemoglobin 15.6 GM/DL Hematocrit 45.5 % Mean Corpuscular Volume 103.1 FL Mean Corpuscular Hemoglobin 35.2 PG Mean Corpuscular Hemoglobin Concent 34.2 % Red Cell Distribution Width 14.3 % Platelet Count 171 TH/MM3 Mean Platelet Volume 8.6 FL Neutrophils (%) (Auto) 90.1 % Lymphocytes (%) (Auto) 2.5 % Monocytes (%) (Auto) 6.9 % Eosinophils (%) (Auto) 0.0 % Basophils (%) (Auto) 0.5 % Neutrophils # (Auto) 12.6 TH/MM3 Lymphocytes # (Auto) 0.3 TH/MM3 Monocytes # (Auto) 1.0 TH/MM3 Eosinophils # (Auto) 0.0 TH/MM3 Basophils # (Auto) 0.1 TH/MM3 CBC Comment DIFF FINAL Differential Comment Urine Color YELLOW Urine Turbidity HAZY Urine pH 6.0 Urine Specific [place] 1.016 Urine Protein 300 mg/dL Urine Glucose (UA) NEG mg/dL Urine Ketones NEG mg/dL Urine Occult Blood SMALL Urine Nitrite POS Urine Bilirubin NEG Urine Urobilinogen 2.0 MG/DL Urine Leukocyte Esterase LARGE Urine RBC 8 /hpf Urine WBC /hpf Urine WBC Clumps FEW Urine Squamous Epithelial Cells 2 /hpf Urine Bacteria MANY /hpf Urine Mucus FEW /lpf Microscopic Urinalysis Comment CULTURE INDICATED Blood Urea Nitrogen 9 MG/DL Creatinine 1.00 MG/DL Random Glucose 100 MG/DL Total Protein 7.8 GM/DL Albumin 3.5 GM/DL Calcium Level 8.9 MG/DL Alkaline Phosphatase 177 U/L Aspartate Amino Transf (AST/SGOT) 56 U/L Alanine Aminotransferase (ALT/SGPT) 25 U/L Total Bilirubin 2.4 MG/DL Sodium Level 132 MEQ/L Potassium Level 3.2 MEQ/L Chloride Level 99 MEQ/L Carbon Dioxide Level 20.9 MEQ/L Anion Gap 12 MEQ/L Estimat Glomerular Filtration Rate 57 ML/MIN Lipase 127 U/L Lactic Acid Level 0.9 mmol/L MDM Medical Decision Making Medical Screen Exam Complete: Yes Emergency Medical Condition: Yes Medical Record Reviewed: Yes Interpretation(s) Laboratory Tests Test 05/30/17 08:20 05/30/17 09:05 White Blood Count 14.0 TH/MM3 (4.0-11.0) Hemoglobin 15.6 GM/DL (11.6-15.3) Mean Corpuscular Volume 103.1 FL (80.0-100.0) Mean Corpuscular Hemoglobin 35.2 PG (27.0-34.0) Neutrophils (%) (Auto) 90.1 % (16.0-70.0) Lymphocytes (%) (Auto) 2.5 % (9.0-44.0) Neutrophils # (Auto) 12.6 TH/MM3 (1.8-7.7) Lymphocytes # (Auto) 0.3 TH/MM3 (1.0-4.8) Monocytes # (Auto) 1.0 TH/MM3 (0-0.9) Urine Turbidity HAZY (CLEAR) Urine Protein 300 mg/dL (NEG-TRACE) Urine Occult Blood SMALL (NEG) Urine Nitrite POS (NEG) Urine Leukocyte Esterase LARGE (NEG) Urine RBC 8 /hpf (0-3) Urine WBC Clumps FEW (NONE) Urine Bacteria MANY /hpf (NONE) Urine Mucus FEW /lpf (OCC) Alkaline Phosphatase 177 U/L (45-117) Aspartate Amino Transf (AST/SGOT) 56 U/L (15-37) Total Bilirubin 2.4 MG/DL (0.2-1.0) Sodium Level 132 MEQ/L (136-145) Potassium Level 3.2 MEQ/L (3.5-5.1) Carbon Dioxide Level 20.9 MEQ/L (21.0-32.0) Estimat Glomerular Filtration Rate 57 ML/MIN (>89) Differential Diagnosis Urinary symptoms, abdominal discomfort, nausea, back pains: UTI versus pyelonephritis versus gastroenteritis versus renal colic Narrative Course Lab work shows significant UTI. She was given IV antibiotics after blood cultures were drawn. She has leukocytosis and lactate was normal. Vital signs are stable in the ER. She was given IV fluids as well. At this point, my plan would be to release the patient with further by mouth antibiotics and close follow-up to primary care doctor. Return for worsening in symptoms as necessary. The plan has been discussed with her and she states understanding. Diagnosis Primary Impression: Urinary tract infection Med/Other Pt SpecificInfo: Prescription(s) given Scripts Sulfamethoxazole-Trimethoprim (Bactrim DS) 800-160 Mg Tab 1 TAB PO BID for Infection, #14 TAB 0 Refills Prov: Germania Bowden MD 05/30/17 Disposition: 01 DISCHARGE HOME Condition: Stable Germania Bowden MD May 30, 2017 08:24
[2017-05-30 08:29] LABS: AUTOMATED NEUTROPHIL # 12.6 TH/MM3 (1.8-7.7); BASOPHIL # 0.1 TH/MM3 (0-0.2); BASOPHIL % 0.5 % (0.0-2.0); HEMATOCRIT 45.5 % (35.0-46.0); HEMO FLAGS DIFF FINAL; LYMPH % 2.5 % (9.0-44.0); LYMPHOCYTE # 0.3 TH/MM3 (1.0-4.8); MEAN CELL VOLUME 103.1 FL (80.0-100.0); MEAN CORPUSCULAR HEMOGLOBIN 35.2 PG (27.0-34.0); MEAN CORPUSCULAR HGB CONC 34.2 % (32.0-36.0); MONO % 6.9 % (0.0-8.0); NEUT % 90.1 % (16.0-70.0); PLATELET COUNT 171 TH/MM3 (150-450); RED BLOOD COUNT 4.41 MIL/MM3 (4.00-5.30); RED CELL DISTRIBUTION WIDTH 14.3 % (11.6-17.2)
[2017-05-30] MEDS ORDERED: KETOROLAC TROMETHAMINE 30 MG/ML (IVP) VIAL IV PUSH ONE (08:30)
[2017-05-30] MEDS ORDERED: SODIUM CHLORIDE 0.9% FLUSH 10 ML FLUSH IV FLUSH PRN (08:30)
[2017-05-30] MEDS ORDERED: ONDANSETRON HCL 4 MG/2 ML VIAL IV PUSH ONE (08:30)
[2017-05-30 08:39] LABS: BACTERIA, URINE MANY /hpf; BLOOD, URINE SMALL (NEG); COMMENT (UR) CULTURE INDICATED; CULTURE IF INDICATED CULTURE INDICATED; GLUCOSE,URINE NEG (NEG); KETONE, URINE NEG (NEG); MUCUS URINE FEW /lpf (OCC); NITRITE,URINE POS (NEG); SQUAMOUS EPITHELIAL CELL URINE 2 /hpf (0-5); URINE COLOR YELLOW (YELLW/STRAW)
[2017-05-30 08:52] LABS: ALT (GPT) 25 U/L (10-53); ANION GAP 12 MEQ/L (5-15); AST (GOT) 56 U/L (15-37); BICARBONATE 20.9 MEQ/L (21.0-32.0); BLOOD UREA NITROGEN 9 MG/DL (7-18); CHLORIDE 99 MEQ/L (98-107); GLOMERULAR FILTRATION RATE 57 ML/MIN (>89); POTASSIUM 3.2 MEQ/L (3.5-5.1); SODIUM (NA) 132 MEQ/L (136-145)
[2017-05-30] MEDS ORDERED: PIPERACIL-TAZO 4.5 GM PREMIX 100 ML IV STA (08:53)
[2017-05-30 08:55] LABS: ALKALINE PHOSPHATASE 177 U/L (45-117); TOTAL BILIRUBIN ADULT 2.4 MG/DL (0.2-1.0)
[2017-05-30] MEDS ORDERED: BACT800T5 PO (09:57)
== END 2017-05-30 10:23 | disposition home or self-care (01) ==
LOC: NEPE 07:52
DX: N39.0 Urinary tract infection, site not specified (principal); B96.20 Unspecified Escherichia coli [E. coli] as the cause of diseases classified elsewhere
CPT/HCPCS: 80053; 81001; 83605; 83690; 85025; 87040; 87077; 87086; 87186; 87205; 96374; 96375; 99284; J1885; J2405; J2543; J7030

== ENCOUNTER 2017-06-04 16:51 | Emergency (ER) | payer OTHER ==
[~2017-06-04] VITALS: Ht 162.6 cm; Wt 67.0 kg
[~2017-06-04 16:51] MED LIST changes: -AMOX875T PO; +BACT800T5 PO; -ZOFR4TAB PO
[2017-06-04 16:52] VITALS: BP 177/98; PULSE 95; RESP 18; TEMP 97.6; O2SAT 98
[2017-06-04] MEDS ORDERED: MACR100C2 PO (18:12)
[2017-06-04] MEDS ORDERED: cefTRIAXone INJ 1,000 MG in SODIUM CHLORIDE 0.9% INJ 100 ML IV ONE (18:30)
[2017-06-04] MEDS ORDERED: CIPR-9 PO (19:31)
--- NOTE | 2017-06-04 19:31 | PD ---
HPI Chief Complaint: Abnormal Results Time Seen by Provider: 18:15 Travel History International Travel<30 days: No Contact w/Intl Traveler<30days: No Traveled to known affect area: No History of Present Illness HPI This 61-year-old woman who presents to the emergency department complaining of UTI. She was seen recently for urinary tract infection, some low-grade fevers, and had blood cultures drawn. Urine and blood was positive for Escherichia coli. Escherichia coli was resistant to Bactrim. She received a phone call to change to Bactrim to Macrobid, but received a second phone call to return to the emergency department because of positive blood cultures. She overall is felt much better without nausea vomiting or fevers. She does still have some urinary symptoms and dysuria. History Past Medical History Narrative Medical Hypertension Hyperlipidemia Anxiety and depression COPD Prolapsed bladder, urinary incontinence Tetanus Vaccination: < 5 Years Menopausal: Yes : 4 Para: 2 Social History Alcohol Use: Yes (occas) Tobacco Use: Yes (1/2 pack day) Allergies-Medications (Allergen,Severity, Reaction): Coded Allergies: No Known Allergies (Verified Adverse Reaction, Unknown, 06/04/17) Reported Meds & Prescriptions Reported Meds & Active Scripts Active Zantac (Ranitidine HCl) 150 Mg Tab 150 Mg PO BID Metoprolol Tartrate 25 Mg Tab 25 Mg PO BID Meloxicam 15 Mg Tab 15 Mg PO DAILY Albuterol Neb (Albuterol Sulfate) 2.5 Mg/3 Ml Neb 2.5 Mg NEB Q4HR NEB PRN Lisinopril 10 Mg Tab 10 Mg PO DAILY Lovastatin 20 Mg Tab 20 Mg PO DAILY Reported Macrobid (Nitrofurantoin Monoh/Nitrofur Macro) 100 Mg Cap 100 Mg PO BID Review of Systems Except as stated in HPI: all other systems reviewed are Neg Physical Exam Narrative GENERAL: Well-appearing 61-year-old woman, no acute distress. SKIN: Focused skin assessment warm/dry. NECK: Trachea midline. No JVD. CARDIOVASCULAR: Regular rate and rhythm. No murmur appreciated. RESPIRATORY: No accessory muscle use. Clear to auscultation. Breath sounds equal bilaterally. GASTROINTESTINAL: Abdomen soft, non-tender, nondistended. Hepatic and splenic margins not palpable. MUSCULOSKELETAL: No obvious deformities. No clubbing. No cyanosis. No edema. NEUROLOGICAL: Awake and alert. No obvious cranial nerve deficits. Motor grossly within normal limits. Normal speech. PSYCHIATRIC: Appropriate mood and affect; insight and judgment normal. Data Data Last Documented VS Vital Signs Date Time Temp Pulse Resp B/P (MAP) Pulse Ox O2 Delivery O2 Flow Rate FiO2 06/04/17 16:52 97.6 95 18 177/98 (124) 98 Orders Orders Ceftriaxone Inj (Rocephin Inj) (06/04/17 18:30) Iv Access Insert/Monitor (06/04/17 18:25) [facility] Medical Decision Making Medical Screen Exam Complete: Yes Emergency Medical Condition: Yes Interpretation(s) Reviewed previous records, cultures Differential Diagnosis Sepsis, bacteremia, UTI, other Narrative Course Medical decision-making 61-year-old woman who presents emergent arm for UTI, positive blood cultures. She received a dose of Zosyn. She denies any systemic illness at this time. She looks well without evidence of sepsis or bacteremia. Neck revealed would not be effective for any bacteremia early [place]. We'll change her to Cipro. We' ll give her a dose of ceftriaxone here. Diagnosis Primary Impression: Urinary tract infection Additional Impression: Bacteremia Additional Instructions: Follow up with her primary doctor in 2-3 days for repeat evaluation. Take Cipro as prescribed. Return to the emergency department for any new or worsening symptoms, especially any fevers, weakness, back pain, vomiting, or any other symptoms. Med/Other Pt SpecificInfo: Prescription(s) given Scripts Ciprofloxacin (Cipro) 500 Mg Tab 500 MG PO BID for Infection for 10 Days, #20 TAB 0 Refills Prov: Sherwin Duncan MD 06/04/17 Disposition: 01 DISCHARGE HOME Condition: Stable Sherwin Duncan MD Jun 04, 2017 19:31
== END 2017-06-04 20:00 | disposition home or self-care (01) ==
LOC: NEPE 16:51
DX: N39.0 Urinary tract infection, site not specified (principal); I10 Essential (primary) hypertension; E78.5 Hyperlipidemia, unspecified; F41.9 Anxiety disorder, unspecified; J44.9 Chronic obstructive pulmonary disease, unspecified; F32.9 Major depressive disorder, single episode, unspecified; F17.200 Nicotine dependence, unspecified, uncomplicated; Z79.51 Long term (current) use of inhaled steroids; Z79.899 Other long term (current) drug therapy
CPT/HCPCS: 96365; 99284; J0696

== ENCOUNTER 2017-06-22 09:26 | Emergency (ER) | payer OTHER ==
[~2017-06-22] VITALS: Ht 162.6 cm; Wt 65.0 kg
[~2017-06-22 09:26] MED LIST changes: -BACT800T5 PO; +CIPR-9 PO; +MACR100C2 PO
[2017-06-22 09:28] VITALS: BP 166/87; PULSE 68; RESP 20; TEMP 97.7; O2SAT 98
--- NOTE | 2017-06-22 10:13 | PD ---
HPI Chief Complaint: Complaint Time Seen by Provider: 09:39 Travel History International Travel<30 days: No Contact w/Intl Traveler<30days: No Traveled to known affect area: No History of Present Illness HPI This is a 61-year-old female who presents to the emergency department concerned she has chronic kidney disease. She says for the past several months she's felt fatigued, weak, and she's not been urinating as much, constant, moderate severity, worsening. She's been having recurrent urinary tract infections and she's had some back pain. She has an appointment with her primary care physician later this evening she is very concerned and wanted to get this checked out. She denies any fevers or chills. PFSH Past Medical History Arthritis: Yes Blood Disorders: No Anxiety: Yes Depression: Yes Heart Rhythm Problems: No Cancer: No Cardiac Catheterization: No Cardiovascular Problems: Yes (HTN) High Cholesterol: Yes Congestive Heart Failure: No COPD: Yes Diabetes: No Diminished Hearing: No Endocrine: No Gastrointestinal Disorders: Yes GERD: Yes Genitourinary: Yes (PROLAPSED BLADDER; URINARY INCONTINENCE) Hypertension: Yes Immune Disorder: No Musculoskeletal: No Neurologic: Yes Psychiatric: Yes Respiratory: Yes (BRONCHITIS , PNEUMONIA ) Integumentary: Yes (RT KNEE ABSESS ? MRSA, L AXILLARY ABSCESS CURRENTLY BEING TREATED. ) Immunizations Current: Yes Migraines: Yes Myocardial Infarction: No Menopausal: Yes : 4 Para: 2 Miscarriage: 2 Tubal Ligation: Yes Past Surgical History Abdominal Surgery: No Coronary Artery Bypass Graft: No Genitourinary Surgery: Yes (BLADDER REPAIR) Gynecologic Surgery: Yes Hysterectomy: Yes Oral Surgery: Yes Tonsillectomy: Yes Family History Family Hypercholesterolemia: Yes Social History Alcohol Use: Yes (daily, ETOH abuse) Tobacco Use: Yes (1/2 pack day) Substance Use: No Allergies-Medications (Allergen,Severity, Reaction): Coded Allergies: No Known Allergies (Verified Adverse Reaction, Unknown, 06/04/17) Reported Meds & Prescriptions Reported Meds & Active Scripts Active Metoprolol Tartrate 25 Mg Tab 25 Mg PO BID Albuterol Neb (Albuterol Sulfate) 2.5 Mg/3 Ml Neb 2.5 Mg NEB Q4HR NEB PRN Lisinopril 10 Mg Tab 10 Mg PO DAILY Lovastatin 20 Mg Tab 20 Mg PO DAILY Review of Systems Except as stated in HPI: all other systems reviewed are Neg Physical Exam Narrative GENERAL:Well appearing, no acute distress SKIN: Focused skin assessment warm and dry. HEAD: Atraumatic. Normocephalic. EYES: Pupils equal and round. No injection or drainage. ENT: Moist mucous membranes NECK: Trachea midline. CARDIOVASCULAR: Regular rate and rhythm. No murmur appreciated. RESPIRATORY: Clear to auscultation. Breath sounds equal bilaterally. GASTROINTESTINAL: Abdomen soft, non-tender, nondistended. MUSCULOSKELETAL: No obvious deformities. NEUROLOGICAL: Awake and alert. No obvious cranial nerve deficits. Moving all extremities. PSYCHIATRIC: Appropriate mood and affect; insight and judgment normal. Data Data Last Documented VS Vital Signs Date Time Temp Pulse Resp B/P (MAP) Pulse Ox O2 Delivery O2 Flow Rate FiO2 06/22/17 09:28 97.7 68 20 166/87 (113) 98 Room Air Orders Orders Urinalysis - C+S If Indicated (06/22/17 09:50) Labs Laboratory Tests Test 06/22/17 10:44 Urine Color YELLOW Urine Turbidity CLEAR Urine pH 6.0 Urine Specific [place] 1.007 Urine Protein NEG mg/dL Urine Glucose (UA) NEG mg/dL Urine Ketones NEG mg/dL Urine Occult Blood NEG Urine Nitrite NEG Urine Bilirubin NEG Urine Urobilinogen LESS THAN 2.0 MG/DL Urine Leukocyte Esterase NEG Urine RBC 1 /hpf Urine WBC LESS THAN 1 /hpf Urine Squamous Epithelial Cells 2 /hpf Urine Bacteria RARE /hpf Microscopic Urinalysis Comment CULT NOT INDICATED MDM Medical Decision Making Medical Screen Exam Complete: Yes Emergency Medical Condition: Yes Interpretation(s) Afebrile, tachycardia, hypertensive Differential Diagnosis Urinary tract infection, renal failure, alcoholism, hypothyroid Narrative Course This is a 61-year-old female with multiple nonspecific complaints that been going on for several months. She wants to know she is chronic kidney disease. She is also reporting that she has some urinary urgency and frequency and is concerned her urinary tract infection never went away. She does have blood work done in May in our system with a creatinine of 1 and a GFR of 57. I printed out her blood work for her and asked her to follow up with her primary care physician. I don't think we need to repeat blood work today. Urinalysis is negative for infection today. 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 She should follow-up with her primary care physician. Diagnosis Primary Impression: Fatigue Qualified Codes: R53.82 - Chronic fatigue, unspecified Patient Instructions: General Instructions Additional Instructions: If you develop severe chest pain, shortness of breath, sweating, lightheadedness , dizziness or difficulty breathing return to the emergency department immediately. Followup with your primary care physician in 2-3 days if your symptoms are not resolved. Med/Other Pt SpecificInfo: No Change to Meds Disposition: 01 DISCHARGE HOME Condition: Stable Sadie Sanchez MD Jun 22, 2017 10:13
[2017-06-22 11:05] LABS: BACTERIA, URINE RARE /hpf; BILIRUBIN, URINE NEG (NEG); BLOOD, URINE NEG (NEG); GLUCOSE,URINE NEG (NEG); KETONE, URINE NEG (NEG); NITRITE,URINE NEG (NEG); SQUAMOUS EPITHELIAL CELL URINE 2 /hpf (0-5); URINE COLOR YELLOW (YELLW/STRAW); URINE LEUKOCYTE ESTERASE NEG (NEG)
== END 2017-06-22 11:37 | disposition home or self-care (01) ==
LOC: NEPD 09:26
DX: R53.82 Chronic fatigue, unspecified (principal); E78.00 Pure hypercholesterolemia, unspecified; F32.9 Major depressive disorder, single episode, unspecified; F41.9 Anxiety disorder, unspecified; I10 Essential (primary) hypertension; J44.9 Chronic obstructive pulmonary disease, unspecified; K21.9 Gastro-esophageal reflux disease without esophagitis; Z87.440 Personal history of urinary (tract) infections; F17.200 Nicotine dependence, unspecified, uncomplicated
CPT/HCPCS: 81001; 99282

== ENCOUNTER 2017-11-06 08:56 | Emergency (ER) | payer OTHER ==
[~2017-11-06] VITALS: Ht 162.6 cm; Wt 60.0 kg
[~2017-11-06 08:56] MED LIST changes: -CIPR-9 PO; -MACR100C2 PO; -MELO15TA20 PO; -ZANT150T2 PO
[2017-11-06 08:58] VITALS: BP 164/100; PULSE 65; RESP 17; TEMP 97.8; O2SAT 98
[2017-11-06] MEDS ORDERED: RESP: ALBUTEROL 2.5 MG/3 ML NEB (SCH) INH ONE (09:15)
[2017-11-06] MEDS ORDERED: CALCIUM GLUCONATE 10% 1 GM/10 ML VIAL SLOW IVP ONE (09:15)
[2017-11-06] MEDS ORDERED: SODIUM BICARBONATE 8.4% SOLN 50 MEQ/50 ML VIAL SLOW IVP ONE (09:15)
[2017-11-06] MEDS ORDERED: SODIUM POLYSTYRENE SULFONATE SUSP 15 GM/60 ML CUP PO ONE (09:15)
[2017-11-06] MEDS ORDERED: DEXTROSE 50% IN WATER 50 ML VIAL(D50) IV PUSH ONE (09:15)
[2017-11-06] MEDS ORDERED: CIPR250T52 PO (09:19)
--- NOTE | 2017-11-06 09:20 | PD ---
HPI Chief Complaint: Flank/Kidney Pain Time Seen by Provider: 09:02 Travel History International Travel<30 days: No Contact w/Intl Traveler<30days: No Traveled to known affect area: No History of Present Illness HPI 62-year-old female complains of frequency urgency and dysuria. Duration has been about 2 days. She denies fever. No vomiting. No flank pain. Multiple prior episodes have occurred and were diagnosed as urinary tract infection. No abnormal vaginal bleeding or discharge. PFSH Past Medical History Arthritis: Yes Blood Disorders: No Anxiety: Yes Depression: Yes Heart Rhythm Problems: No Cancer: No Cardiac Catheterization: No Cardiovascular Problems: Yes (HTN) High Cholesterol: Yes Congestive Heart Failure: No COPD: Yes Diabetes: No Diminished Hearing: No Endocrine: No Gastrointestinal Disorders: Yes GERD: Yes Genitourinary: Yes (PROLAPSED BLADDER; URINARY INCONTINENCE) Hypertension: Yes Immune Disorder: No Musculoskeletal: No Neurologic: Yes Psychiatric: Yes Respiratory: Yes (BRONCHITIS , PNEUMONIA ) Integumentary: Yes (RT KNEE ABSESS ? MRSA, L AXILLARY ABSCESS CURRENTLY BEING TREATED. ) Immunizations Current: Yes Migraines: Yes Myocardial Infarction: No ?: Not Menopausal: Yes : 4 Para: 2 Miscarriage: 2 Tubal Ligation: Yes Past Surgical History Abdominal Surgery: No Coronary Artery Bypass Graft: No Genitourinary Surgery: Yes (BLADDER REPAIR) Gynecologic Surgery: Yes Hysterectomy: Yes Oral Surgery: Yes Tonsillectomy: Yes Family History Family Hypercholesterolemia: Yes Social History Alcohol Use: Yes (daily, ETOH abuse) Tobacco Use: Yes (1/2 pack day) Substance Use: No Allergies-Medications (Allergen,Severity, Reaction): Coded Allergies: No Known Allergies (Verified Adverse Reaction, Unknown, 11/06/17) Reported Meds & Prescriptions Reported Meds & Active Scripts Active Metoprolol Tartrate 25 Mg Tab 25 Mg PO BID Albuterol Neb (Albuterol Sulfate) 2.5 Mg/3 Ml Neb 2.5 Mg NEB Q4HR NEB PRN Lisinopril 10 Mg Tab 10 Mg PO DAILY Lovastatin 20 Mg Tab 20 Mg PO DAILY Review of Systems Except as stated in HPI: all other systems reviewed are Neg General / Constitutional: No: Fever Physical Exam Narrative GENERAL: 62-year-old female pleasant well-nourished well-developed no acute distress speaking full sentences Vital Signs Date Time Temp Pulse Resp B/P (MAP) Pulse Ox O2 Delivery O2 Flow Rate FiO2 11/06/17 08:58 97.8 65 17 164/100 (121) 98 SKIN: Warm and dry. HEAD: Atraumatic. Normocephalic. EYES: Pupils equal and round. No scleral icterus. No injection or drainage. ENT: No nasal bleeding or discharge. Mucous membranes pink and moist. NECK: Trachea midline. No JVD. CARDIOVASCULAR: Regular rate and rhythm. RESPIRATORY: No accessory muscle use. Clear to auscultation. Breath sounds equal bilaterally. GASTROINTESTINAL: Abdomen soft, non-tender, nondistended. Hepatic and splenic margins not palpable. No flank tenderness. MUSCULOSKELETAL: Extremities without clubbing, cyanosis, or edema. No obvious deformities. NEUROLOGICAL: Awake and alert. No obvious cranial nerve deficits. Motor grossly within normal limits. Five out of 5 muscle strength in the arms and legs. Normal speech. PSYCHIATRIC: Appropriate mood and affect; insight and judgment normal. Data Data Last Documented VS Vital Signs Date Time Temp Pulse Resp B/P (MAP) Pulse Ox O2 Delivery O2 Flow Rate FiO2 11/06/17 08:58 97.8 65 17 164/100 (121) 98 Orders Orders Electrocardiogram (11/06/17 09:12) Potassium, Serum (K) (11/06/17 12:12) Calcium Gluconate Inj (Calcium Gluconate (11/06/17 09:15) Insulin Human Regular Inj (Novolin R Inj (11/06/17 09:30) Dextrose 50% In Tessie (Vial) Inj (D50w (Vi (11/06/17 09:15) Sodium Bicarbonate 8.4% Inj (Sodium Bica (11/06/17 09:15) Sodium Polysty Sulfate Liq (Kayexalate L (11/06/17 09:15) Albuterol Neb (Albuterol Neb) (11/06/17 09:15) MDM Medical Decision Making Medical Screen Exam Complete: Yes Emergency Medical Condition: Yes Medical Record Reviewed: Yes Differential Diagnosis UTI, pyelonephritis, hemorrhagic cystitis Narrative Course Patient has a clinical UTI. Scripts as below. Diagnosis Primary Impression: Urinary tract infection Qualified Codes: N30.00 - Acute cystitis without hematuria Med/Other Pt SpecificInfo: Prescription(s) given Scripts Ciprofloxacin (Cipro) 250 Mg Tab 250 MG PO BID for Infection for 3 Days, #6 TAB 1 Refill Prov: Chi Cid MD 11/06/17 Disposition: 01 DISCHARGE HOME Condition: Stable Chi Cid MD November 06, 2017 09:20
[2017-11-06] MEDS ORDERED: INSULIN HUMAN REGULAR 1,000 UNITS/10 ML VIAL IV PUSH ONE (09:30)
[2017-11-07] MEDS ORDERED: BUPIVACAINE PF 0.75% DEX-WATER INJ 2 ML AMP ONE (06:45)
[2017-11-07] MEDS ORDERED: ACETAMINOPHEN 1000 MG/100 ML 100 ML IV ONE (06:45)
== END 2017-11-06 09:48 | disposition home or self-care (01) ==
LOC: NEPC 08:56
DX: N30.00 Acute cystitis without hematuria (principal); M19.90 Unspecified osteoarthritis, unspecified site; F32.9 Major depressive disorder, single episode, unspecified; I10 Essential (primary) hypertension; E78.00 Pure hypercholesterolemia, unspecified; J44.9 Chronic obstructive pulmonary disease, unspecified; K21.9 Gastro-esophageal reflux disease without esophagitis; F17.210 Nicotine dependence, cigarettes, uncomplicated
CPT/HCPCS: 99283; J0131

== ENCOUNTER 2017-11-27 08:39 | Emergency (ER) | payer OTHER ==
[~2017-11-27 08:39] MED LIST changes: +CIPR250T52 PO
[2017-11-27 08:44] VITALS: BP 135/69; TEMP 99.2; O2SAT 99
[2017-11-27] MEDS ORDERED: SODIUM CHLOR 0.9% 1000 ML INJ 1,000 ML IV SCH (09:09)
[2017-11-27] MEDS ORDERED: methylPREDNISolone SOD SUCC 125 MG/2 ML VIAL IV PUSH ONE (09:15)
[2017-11-27] MEDS ORDERED: SODIUM CHLORIDE 0.9% FLUSH 10 ML FLUSH IV FLUSH PRN (09:15)
[2017-11-27] MEDS ORDERED: METOCLOPRAMIDE HCL 10 MG/2 ML VIAL IV PUSH ONE (09:15)
--- NOTE | 2017-11-27 09:22 | PD ---
HPI Chief Complaint: Cold / Flu Symptoms Time Seen by Provider: 09:04 Travel History International Travel<30 days: No Contact w/Intl Traveler<30days: No Traveled to known affect area: No History of Present Illness HPI Patient is 62-year-old female with history of hypertension, COPD, arthritis, presents to emergency room with multiple complaints. Patient reports that for the past few days, she has had a productive cough with wheezing, reports that she has been having fever and chills. Patient reports that in addition to that , she has been having urinary urgency and frequency along with dysuria. Patient reports that she was recently seen here for her urinary complaints, reports concerns that her urine was never checked. Patient denies any vaginal discharge or bleeding. Patient reports that she did come to the emergency room "n.p.o." as she would like stat labs to be performed today. Patient denies any chest pain or shortness of breath at this time. Patient with no abdominal pain , denies any constipation or diarrhea. PFSH Past Medical History Arthritis: Yes Blood Disorders: No Anxiety: Yes Depression: Yes Heart Rhythm Problems: No Cancer: No Cardiac Catheterization: No Cardiovascular Problems: Yes (HTN) High Cholesterol: Yes Congestive Heart Failure: No COPD: Yes Diabetes: No Diminished Hearing: No Endocrine: No Gastrointestinal Disorders: Yes GERD: Yes Genitourinary: Yes (PROLAPSED BLADDER; URINARY INCONTINENCE) Hypertension: Yes Immune Disorder: No Musculoskeletal: No Neurologic: Yes Psychiatric: Yes Respiratory: Yes (BRONCHITIS , PNEUMONIA ) Integumentary: Yes (RT KNEE ABSESS ? MRSA, L AXILLARY ABSCESS CURRENTLY BEING TREATED. ) Immunizations Current: Yes Migraines: Yes Myocardial Infarction: No ?: Not Menopausal: Yes : 4 Para: 2 Miscarriage: 2 Tubal Ligation: Yes Past Surgical History Abdominal Surgery: No Coronary Artery Bypass Graft: No Genitourinary Surgery: Yes (BLADDER REPAIR) Gynecologic Surgery: Yes Hysterectomy: Yes Oral Surgery: Yes Tonsillectomy: Yes Family History Family Hypercholesterolemia: Yes Social History Alcohol Use: Yes (daily, ETOH abuse) Tobacco Use: Yes (1/2 pack day) Substance Use: No Allergies-Medications (Allergen,Severity, Reaction): Coded Allergies: No Known Allergies (Verified Adverse Reaction, Unknown, 11/06/17) Reported Meds & Prescriptions Reported Meds & Active Scripts Active Prednisone 20 Mg Tab 20 Mg PO BID 5 Days Proair Hfa 8.5 GM Inh (Albuterol Sulfate) 90 Mcg/Act Aer 2 Puff INH Q4-6H PRN 108 mcg/actuation Augmentin (Amoxicillin-Clavulanate) 875-125 Mg Tab 1 Tab PO BID 7 Days Metoprolol Tartrate 25 Mg Tab 25 Mg PO BID Lisinopril 10 Mg Tab 10 Mg PO DAILY Lovastatin 20 Mg Tab 20 Mg PO DAILY Review of Systems General / Constitutional: Positive: Fever, Chills Eyes: No: Visual changes HENT: No: Headaches Cardiovascular: No: Chest Pain or Discomfort Respiratory: Positive: Cough, Wheezing, No: Shortness of Breath Gastrointestinal: No: Nausea, Vomiting, Diarrhea, Abdominal Pain, Constipation Genitourinary: Positive: Urgency, Frequency, Dysuria Musculoskeletal: No: Pain Skin: No Rash Neurologic: No: Weakness Psychiatric: No: Depression Endocrine: No: Polydipsia Hematologic/Lymphatic: No: Easy Bruising Physical Exam Narrative GENERAL: Mild distress SKIN: Focused skin assessment warm/dry. HEAD: Atraumatic. Normocephalic. EYES: Pupils equal and round. No scleral icterus. No injection or drainage. ENT: No nasal bleeding or discharge. Mucous membranes pink and moist. NECK: Trachea midline. No JVD. CARDIOVASCULAR: Regular rate and rhythm. No murmur appreciated. RESPIRATORY: No accessory muscle use. Patient with scattered wheezing bilaterally. Breath sounds equal bilaterally. GASTROINTESTINAL: Abdomen soft, non-tender, nondistended. Hepatic and splenic margins not palpable. MUSCULOSKELETAL: No obvious deformities. No clubbing. No cyanosis. No edema. NEUROLOGICAL: Awake and alert. No obvious cranial nerve deficits. Motor grossly within normal limits. Normal speech. PSYCHIATRIC: Appropriate mood and affect; insight and judgment normal. Data Data Last Documented VS Vital Signs Date Time Temp Pulse Resp B/P (MAP) Pulse Ox O2 Delivery O2 Flow Rate FiO2 11/27/17 10:22 99.6 95 18 133/75 (94) 95 Room Air 11/27/17 09:28 21 Orders Orders Complete Blood Count With Diff (11/27/17 09:09) Comprehensive Metabolic Panel (11/27/17 09:09) Lipase (11/27/17 09:09) Prothrombin Time / Inr (Pt) (11/27/17 09:09) Act Partial Throm Time (Ptt) (11/27/17 09:09) Urinalysis - C+S If Indicated (11/27/17 09:09) Iv Access Insert/Monitor (11/27/17 09:09) Ecg Monitoring (11/27/17 09:09) Oximetry (11/27/17 09:09) NPO (11/27/17 09:09) Sodium Chlor 0.9% 1000 Ml Inj (Ns 1000 M (11/27/17 09:09) Sodium Chloride 0.9% Flush (Ns Flush) (11/27/17 09:15) Magnesium (Mg) (11/27/17 09:09) Chest, Pa & Lat (11/27/17 09:09) Methylprednisolone So Succ Inj (Solumedr (11/27/17 09:15) Albuterol-Ipratropium Neb (Duoneb Neb) (11/27/17 09:15) Metoclopramide Inj (Reglan Inj) (11/27/17 09:15) Amoxicil-Clavulanate (Augmentin) (11/27/17 11:00) Potassium Chloride (Kcl) (11/27/17 11:00) Labs Laboratory Tests Test 11/27/17 09:50 11/27/17 09:58 White Blood Count 13.5 TH/MM3 Red Blood Count 4.65 MIL/MM3 Hemoglobin 16.5 GM/DL Hematocrit 48.0 % Mean Corpuscular Volume 103.3 FL Mean Corpuscular Hemoglobin 35.6 PG Mean Corpuscular Hemoglobin Concent 34.5 % Red Cell Distribution Width 13.9 % Platelet Count 183 TH/MM3 Mean Platelet Volume 10.0 FL Neutrophils (%) (Auto) 76.0 % Lymphocytes (%) (Auto) 14.6 % Monocytes (%) (Auto) 7.9 % Eosinophils (%) (Auto) 1.0 % Basophils (%) (Auto) 0.5 % Neutrophils # (Auto) 10.2 TH/MM3 Lymphocytes # (Auto) 2.0 TH/MM3 Monocytes # (Auto) 1.1 TH/MM3 Eosinophils # (Auto) 0.1 TH/MM3 Basophils # (Auto) 0.1 TH/MM3 CBC Comment DIFF FINAL Differential Comment Prothrombin Time 11.4 SEC Prothromb Time International Ratio 1.1 RATIO Activated Partial Thromboplast Time 29.2 SEC Blood Urea Nitrogen 14 MG/DL Creatinine 1.10 MG/DL Random Glucose 86 MG/DL Total Protein 7.8 GM/DL Albumin 3.3 GM/DL Calcium Level 9.0 MG/DL Magnesium Level 1.5 MG/DL Alkaline Phosphatase 278 U/L Aspartate Amino Transf (AST/SGOT) 156 U/L Alanine Aminotransferase (ALT/SGPT) 132 U/L Total Bilirubin 2.9 MG/DL Sodium Level 135 MEQ/L Potassium Level 3.2 MEQ/L Chloride Level 97 MEQ/L Carbon Dioxide Level 26.9 MEQ/L Anion Gap 11 MEQ/L Estimat Glomerular Filtration Rate 50 ML/MIN Lipase 67 U/L Urine Color ORANGE Urine Turbidity HAZY Urine pH 5.5 Urine Specific [place] 1.009 Urine Protein NEG mg/dL Urine Glucose (UA) NEG mg/dL Urine Ketones NEG mg/dL Urine Occult Blood NEG Urine Nitrite NEG Urine Bilirubin SMALL Urine Urobilinogen 8.0 MG/DL Urine Leukocyte Esterase SMALL Urine RBC 1 /hpf Urine WBC 5 /hpf Urine Squamous Epithelial Cells 1 /hpf Urine Bacteria OCC /hpf Microscopic Urinalysis Comment CULT NOT INDICATED MDM Medical Decision Making Medical Screen Exam Complete: Yes Emergency Medical Condition: Yes Medical Record Reviewed: Yes Interpretation(s) Vital Signs Date Time Temp Pulse Resp B/P (MAP) Pulse Ox O2 Delivery O2 Flow Rate FiO2 11/27/17 08:44 99.2 91 20 135/69 (91) 99 Differential Diagnosis COPD exacerbation, pneumonia, UTI, pyelonephritis, appendicitis, colitis Narrative Course Patient is a 62-year-old female who presents the emergency room with multiple complaints. Patient reports that for the past few days, she has had a productive cough along with wheezing, reports that she has also had urinary urgency and frequency along with dysuria. Previous records were reviewed, patient was seen in the emergency room on November 06, 2017 and was diagnosed with a UTI and was sent home with a prescription for ciprofloxacin. Patient was concerned that her urine was never tested and would like it tested again. During the course of the patients emergency department visit, the patients history, examination, and differential diagnosis were reviewed with the patient. The patient was placed on a extrusion former with oximetry and frequent blood pressure monitoring. The patient had an IV access obtained and blood work sent for analysis. The patient was initially provided IV fluids, Zofran ODT, IV Solu-Medrol as well as DuoNeb's. The patients laboratory studies were reviewed and remarkable for CBC & BMP Diagram 11/27/17 09:50 Total Protein 7.8, Albumin 3.3 L, Calcium Level 9.0, Magnesium Level 1.5, Alkaline Phosphatase 278 H, Aspartate Amino Transf (AST/SGOT) 156 H, Alanine Aminotransferase (ALT/SGPT) 132 H, Total Bilirubin 2.9 H WBC 13.5, hemoglobin 16.5, hematocrit 48 BMP significant for potassium 3.2, this is replaced by oral potassium, BUN 14, creatinine 1.10 LFT's are mildly elevated, patient is an alcoholic, reports that she drinks vodka daily. Radiology studies were reviewed and remarkable for Last Impressions Chest X-Ray 11/27/17 09 Signed Impressions: CONCLUSION: Bibasilar subsegmental atelectasis X-ray of the chest with bibasilar segmental atelectasis. Patient was given Solu -Medrol as well as DuoNeb's, she most likely has a COPD exacerbation given her symptoms. Plan to treat with steroids as well as neb treatments. UA is positive for small leuko esterase, occasional bacteria, will treat with Augmentin as she is symptomatic and previous cultures are sensitive to Augmentin. I reviewed all labs and all studies with patient detail, she will follow-up with her primary care doctor and will return to the emergency room as needed. Diagnosis Primary Impression: COPD exacerbation Additional Impressions: UTI (urinary tract infection) Qualified Codes: N30.00 - Acute cystitis without hematuria Transaminitis Patient Instructions: General Instructions Additional Instructions: Please provide patient with a copy of their lab work and studies at discharge* * Please follow up with your primary care doctor in 2-3 days Return to the ER if symptoms worsen or progress Return to the ER as needed Please take all medications as prescribed Please stop drinking alcohol or drink responsibly Med/Other Pt SpecificInfo: Prescription(s) given Scripts Prednisone (Prednisone) 20 Mg Tab 20 MG PO BID for 5 Days, #10 TAB 0 Refills Prov: Adelia Grace DO 11/27/17 Albuterol 8.5 GM Inh (Proair Hfa 8.5 GM Inh) 90 Mcg/Act Aer 2 PUFF INH Q4-6H Y for SHORTNESS OF BREATH, #1 INHALER 0 Refills 108 mcg/actuation Prov: Adelia Grace DO 11/27/17 Amoxicillin-Clavulanate (Augmentin) 875-125 Mg Tab 1 TAB PO BID for Infection for 7 Days, #14 TAB 0 Refills Prov: Adelia Grace DO 11/27/17 Disposition: 01 DISCHARGE HOME Condition: Stable Adelia Grace DO November 27, 2017 09:22
[2017-11-27] MEDS: RESP: ALBUTEROL 2.5 MG/IPRATROPIUM 0.5 MG NEB (SCH) INH ×2 (09:23→09:24)
[2017-11-27 09:28] VITALS: O2SAT 100
[2017-11-27 10:04] VITALS: RESP 18; O2SAT 98
[2017-11-27 10:07] LABS: AUTOMATED NEUTROPHIL # 10.2 TH/MM3 (1.8-7.7); BASOPHIL # 0.1 TH/MM3 (0-0.2); BASOPHIL % 0.5 % (0.0-2.0); EOSINOPHIL # 0.1 TH/MM3 (0-0.4); HEMOGLOBIN 16.5 GM/DL (11.6-15.3); LYMPH % 14.6 % (9.0-44.0); MEAN CELL VOLUME 103.3 FL (80.0-100.0); MEAN CORPUSCULAR HEMOGLOBIN 35.6 PG (27.0-34.0); MEAN CORPUSCULAR HGB CONC 34.5 % (32.0-36.0); MONO % 7.9 % (0.0-8.0); MONOCYTE # 1.1 TH/MM3 (0-0.9); PLATELET COUNT 183 TH/MM3 (150-450); RED BLOOD COUNT 4.65 MIL/MM3 (4.00-5.30); RED CELL DISTRIBUTION WIDTH 13.9 % (11.6-17.2); WHITE BLOOD COUNT 13.5 TH/MM3 (4.0-11.0)
--- NOTE | 2017-11-27 10:12 | RADRPT ---
EXAM DATE: 11/27/2017 10:08 AM EDT AGE/SEX: 62 years / Female INDICATIONS: Cough and congestion. CLINICAL DATA: This is the patient's initial encounter. Patient reports that signs and symptoms have been present for 3 days and indicates a pain score of 0/10. MEDICAL/SURGICAL HISTORY: None. None. COMPARISON: [facility] [place], CHEST PA & LAT, 11/09/2016. . FINDINGS: PA and lateral views of the chest demonstrate the lungs to be hyperaerated with minimal bibasilar sub segmental atelectasis. The cardiomediastinal contours are unremarkable. Osseous structures are intact . CONCLUSION: Bibasilar subsegmental atelectasis Electronically signed by: Denzel Marley MD 11/27/2017 10:10 AM EDT
[2017-11-27 10:22] VITALS: BP 133/75; PULSE 95; RESP 18; TEMP 99.6; O2SAT 95
[2017-11-27 10:24] LABS: BACTERIA, URINE OCC /hpf; BILIRUBIN, URINE SMALL (NEG); BLOOD, URINE NEG (NEG); GLUCOSE,URINE NEG (NEG); KETONE, URINE NEG (NEG); NITRITE,URINE NEG (NEG); PH, URINE 5.5 (5.0-8.5); SQUAMOUS EPITHELIAL CELL URINE 1 /hpf (0-5); URINE LEUKOCYTE ESTERASE SMALL (NEG)
[2017-11-27 10:25] LABS: INTERNATIONAL NORMALIZED RATIO 1.1 RATIO; PROTHROMBIN TIME - PATIENT 11.4 SEC (9.8-11.6)
[2017-11-27 10:28] LABS: URINE COLOR ORANGE (YELLW/STRAW)
[2017-11-27 10:31] LABS: ALKALINE PHOSPHATASE 278 U/L (45-117); TOTAL BILIRUBIN ADULT 2.9 MG/DL (0.2-1.0); TOTAL PROTEIN 7.8 GM/DL (6.4-8.2)
[2017-11-27 10:38] LABS: ALBUMIN 3.3 GM/DL (3.4-5.0); ALT (GPT) 132 U/L (10-53); AST (GOT) 156 U/L (15-37); BICARBONATE 26.9 MEQ/L (21.0-32.0); BLOOD UREA NITROGEN 14 MG/DL (7-18); CHLORIDE 97 MEQ/L (98-107); GLOMERULAR FILTRATION RATE 50 ML/MIN (>89); GLUCOSE,RANDOM 86 MG/DL (74-106); MAGNESIUM 1.5 MG/DL (1.5-2.5); SODIUM (NA) 135 MEQ/L (136-145)
[2017-11-27] MEDS ORDERED: AMOXICILLIN/CLAVULANATE K 875 MG TAB PO ONE (11:00)
[2017-11-27] MEDS ORDERED: POTASSIUM CHLORIDE 10 MEQ CONTROLLED RELEASE TAB PO ONE (11:00)
[2017-11-27] MEDS ORDERED: PRED20 PO (11:07)
[2017-11-27] MEDS ORDERED: AUGM875T3 PO (11:07)
[2017-11-27] MEDS ORDERED: ALBUAER3 INH (11:07)
== END 2017-11-27 11:43 | disposition home or self-care (01) ==
LOC: NEPD 08:39
DX: J44.1 Chronic obstructive pulmonary disease with (acute) exacerbation (principal); N30.00 Acute cystitis without hematuria; E78.00 Pure hypercholesterolemia, unspecified; F32.9 Major depressive disorder, single episode, unspecified; F41.9 Anxiety disorder, unspecified; I10 Essential (primary) hypertension; K21.9 Gastro-esophageal reflux disease without esophagitis; F17.200 Nicotine dependence, unspecified, uncomplicated; F10.10 Alcohol abuse, uncomplicated
CPT/HCPCS: 71046; 80053; 81001; 83690; 83735; 85025; 85610; 85730; 94640; 94664; 96361; 96374; 96375; 99284; J2765; J2930; J7030

== ENCOUNTER 2018-01-06 14:45 | Inpatient (IN) ==
[2018-01-06] MEDS ORDERED: Ketorolac Inj 30 MG/ML (IVP) Vial IV.PUSH ONE (15:20)
[2018-01-06] MEDS ORDERED: Sod Chloride 0.9% Inj 1,000 ML IV.SIG ONE ×2 (15:20→16:59)
--- NOTE | 2018-01-06 15:36 | ED ---
HPI General Chief complaint: Back Pain/Injury Stated complaint: back pain/dizziness Time Seen by Provider: 01/06/18 15:10 Source: patient Mode of arrival: ambulatory Limitations: no limitations History of Present Illness HPI narrative: 62-year-old female presents to the emergency department for evaluation of left flank pain that started on night, 2 days ago. Patient reports the pain is worse with movement. She currently rates the pain 8 /10, aching and throbbing. She states it occasionally radiates to the right flank and up. Patient denies any chest pain. She reports shortness of breath with history of COPD. She denies any abdominal pain. She states that she has been nauseated and vomiting for the past several days. She thinks that she vomited once today. No diarrhea or constipation. Patient reports associated dizziness. She denies syncope. No headache. She thinks that the dizziness is from the pain. Patient also reports urinary frequency that has been ongoing for several days. She denies any dysuria or urgency. Patient has history of COPD, hypertension, arthritis. Patient denies a traumatic injury. No falls. 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 Moderate severity. Onset (ago): day(s) (2) Location: back (left flank) Radiation: back (right flank) Severity: moderate Severity scale (1-10): 8 Quality: burning and aching Pain Consistency: intermittent Relieving factors: immobilization and rest Exacerbating factors: movement Associated symptoms: nausea/vomiting, weakness and other (dizziness) Treatments prior to arrival: heat therapy Related Data Home Medications Medication Instructions Recorded Confirmed atenolol 50 mg PO DAILY 01/06/18 01/06/18 lisinopril 10 mg PO DAILY 01/06/18 01/06/18 lovastatin 20 mg PO DAILY 01/06/18 01/06/18 tizanidine [Zanaflex] 2 mg PO HS PRN 01/06/18 01/06/18 Allergies Allergy/AdvReac Type Severity Reaction Status Date / Time No Known Allergies AdvReac Unknown none Uncoded 01/06/18 16:11 Review of Systems ROS Unobtainable All other systems reviewed negative except as stated in HPI [facility] Medical History Medical History Patient denies medical problems (Acute) Social History Social History Substance History: No History of Abuse Second Hand Smoke Exposure: No Smoking Status: Current every day smoker Tobacco Type: Cigarettes How Often Do You Have a Drink Containing Alcohol: Never Recent Travel in [facility] [[email or web address]] within the Last 8 Weeks: No Recent Out of Country Travel within the Last 8 Weeks: No Exam Narrative Exam Narrative: GENERAL: Well-nourished, well-developed female patient, ambulatory. Afebrile. SKIN: Focused skin assessment warm/dry. HEAD: Normocephalic. Atraumatic. EYES: No scleral icterus. No injection or drainage. NECK: Supple, trachea midline. No JVD or lymphadenopathy. CARDIOVASCULAR: Regular rate and rhythm without murmurs, gallops, or rubs. RESPIRATORY: Breath sounds equal bilaterally. No accessory muscle use. Lung sounds with expiratory wheezes noted throughout. GASTROINTESTINAL: Abdomen soft, non-tender, nondistended. MUSCULOSKELETAL: No cyanosis, or edema. BACK: Nontender without obvious deformity. Right CVA tenderness. Course Initial Documented Vital Signs Temperature 96.3 F L 01/06/18 14:48 Pulse Rate 84 01/06/18 14:48 Respiratory Rate 20 01/06/18 14:48 Blood Pressure 96/52 L 01/06/18 14:48 Pulse Oximetry 98 01/06/18 14:48 Last Documented Vital Signs Temperature 96.3 F L 01/06/18 14:48 Pulse Rate 67 01/06/18 17:30 Respiratory Rate 16 01/06/18 17:30 Blood Pressure 123/75 01/06/18 17:30 Pulse Oximetry 100 01/06/18 17:30 Medical Decision Making MDM Narrative Medical decision making narrative: 62-year-old female presents to the emergency department for evaluation of left flank pain with associated dizziness for 2 days. Patient was slightly hypotensive in triage blood pressure 96/52. EKG, CBC, CMP, lipase, magnesium, CK, troponin, UA are ordered and pending. Chest x- ray and CT abdomen/pelvis without contrast are ordered and pending. Patient is given normal saline 1 L IV bolus x2, DuoNeb 1, Toradol 10 milligrams IV, Zofran 4 mg ODT. EKG shows sinus rhythm, heart rate 66, T-wave inversion in V2 and V3. This does appear similar to previous EKG. CBC shows no acute abnormality. CMP shows hyponatremia 133, BUN 37, creatinine 5.28. Lipase is 202. Magnesium is 2.0. CK is 231. Troponin is less than 0.02. UA shows moderate leukocyte esterase, moderate bacteria. Chest x-ray shows no acute finding CT of the abdomen/pelvis shows no acute findings, specifically no hydronephrosis or obstructive uropathy, no bladder calculi, fat-containing umbilical hernia measuring up to 5.9 cm in cephalocaudad extent. Patient is admitted for acute kidney injury, UTI. She agrees. Differential Diagnosis Differential Diagnosis: UTI versus pyelonephritis versus nephrolithiasis versus abnormality versus dehydration versus muscle strain versus muscle spasm Medical Records Medical records reviewed: Yes I reviewed the patient's medical records. Lab Data Result diagrams: 01/06/18 15:40 01/06/18 15:40 Lab Results 01/06/18 01/06/18 01/06/18 Range/Units 15:40 15:40 15:40 WBC 9.9 (4.0-11.0) th/mm3 RBC 4.45 (4.00-5.30) mil/mm3 Hgb 15.5 H (11.6-15.3) gm/dL Hct 44.9 (35.0-46.0) % MCV 101.0 H (80.0-100.0) fL MCH 34.8 H (27.0-34.0) pg MCHC 34.5 (32.0-36.0) % RDW 13.9 (11.6-17.2) % Plt Count 196 (150-450) th/mm3 MPV 9.5 (7.0-11.0) fL Neut % (Auto) 75.3 H (16.0-70.0) % Lymph % (Auto) 12.6 (9.0-44.0) % Floyd % (Auto) 10.6 H (0.0-8.0) % Eos % (Auto) 0.9 (0.0-4.0) % Baso % (Auto) 0.6 (0.0-2.0) % Neut # (Auto) 7.5 (1.8-7.7) th/mm3 Lymph # (Auto) 1.3 (1.0-4.8) th/mm3 Floyd # (Auto) 1.0 H (0.0-0.9) th/mm3 Eos # (Auto) 0.1 (0.0-0.4) th/mm3 Baso # (Auto) 0.1 (0.0-0.2) th/mm3 WBC Differential . Differential Comment Auto diff final Sodium 133 L (136-145) meq/L Potassium 4.0 (3.5-5.1) meq/L Chloride 95 L (98-107) meq/L Carbon Dioxide 23.3 (21.0-32.0) meq/L Anion Gap 15 (5-15) meq/L BUN 37 H (7-18) mg/dL Creatinine 5.28 H (0.50-1.00) mg/dL Estimated GFR 8 L (>89) mL/min Random Glucose 112 H (74-106) mg/dL Calcium 9.3 (8.5-10.1) mg/dL Magnesium 2.0 (1.5-2.5) mg/dL Total Bilirubin 1.5 H (0.2-1.0) mg/dL AST 59 H (15-37) U/L ALT 25 (10-53) U/L Alkaline Phosphatase 111 (45-117) U/L Total Creatine Kinase 231 H (26-192) U/L CK-MB (CK-2) 3.1 (0.5-3.6) ng/mL CK-MB (CK-2) % 1.3 (0.0-4.0) % Troponin I Less than 0.02 L (0.02-0.05) ng/mL Total Protein 8.1 (6.4-8.2) g/dL Albumin 4.1 (3.4-5.0) g/dL Lipase 202 (73-393) U/L Urine Color (Yellw/Straw) Urine Clarity (Clear) Urine pH (5.0-8.5) Ur Specific [place] (1.002-1.035) Urine Protein (Neg-Trace) mg/dL Urine Glucose (UA) (Negative) mg/dL Urine Ketones (Negative) mg/dL Urine Occult Blood (Negative) Urine Nitrate (Negative) Urine Bilirubin (Negative) Urine Urobilinogen (Less than 2) mg/dL Ur Leukocyte Esterase (Negative) Urine RBC (0-3) /hpf Urine WBC (0-5) /hpf Ur Squamous Epith Cells (0-5) /hpf Ur Transition Epith Cell (None) /hpf Urine Bacteria (None) /hpf Hyaline Casts (0-3) /lpf Urine Mucus (Occasional) /lpf Micro UA Comment Urine Culture Comments 01/06/18 Range/Units 16:00 WBC (4.0-11.0) th/mm3 RBC (4.00-5.30) mil/mm3 Hgb (11.6-15.3) gm/dL Hct (35.0-46.0) % MCV (80.0-100.0) fL MCH (27.0-34.0) pg MCHC (32.0-36.0) % RDW (11.6-17.2) % Plt Count (150-450) th/mm3 MPV (7.0-11.0) fL Neut % (Auto) (16.0-70.0) % Lymph % (Auto) (9.0-44.0) % Floyd % (Auto) (0.0-8.0) % Eos % (Auto) (0.0-4.0) % Baso % (Auto) (0.0-2.0) % Neut # (Auto) (1.8-7.7) th/mm3 Lymph # (Auto) (1.0-4.8) th/mm3 [place] # (Auto) (0.0-0.9) th/mm3 Eos # (Auto) (0.0-0.4) th/mm3 Baso # (Auto) (0.0-0.2) th/mm3 WBC Differential Differential Comment Sodium (136-145) meq/L Potassium (3.5-5.1) meq/L Chloride (98-107) meq/L Carbon Dioxide (21.0-32.0) meq/L Anion Gap (5-15) meq/L BUN (7-18) mg/dL Creatinine (0.50-1.00) mg/dL Estimated GFR (>89) mL/min Random Glucose (74-106) mg/dL Calcium (8.5-10.1) mg/dL Magnesium (1.5-2.5) mg/dL Total Bilirubin (0.2-1.0) mg/dL AST (15-37) U/L ALT (10-53) U/L Alkaline Phosphatase (45-117) U/L Total Creatine Kinase (26-192) U/L CK-MB (CK-2) (0.5-3.6) ng/mL CK-MB (CK-2) % (0.0-4.0) % Troponin I (0.02-0.05) ng/mL Total Protein (6.4-8.2) g/dL Albumin (3.4-5.0) g/dL Lipase (73-393) U/L Urine Color [place] (Yellw/Straw) Urine Clarity Cloudy H (Clear) Urine pH 5.0 (5.0-8.5) Ur Specific [place] 1.023 (1.002-1.035) Urine Protein 100 H (Neg-Trace) mg/dL Urine Glucose (UA) Negative (Negative) mg/dL Urine Ketones Trace H (Negative) mg/dL Urine Occult Blood Small H (Negative) Urine Nitrate Negative (Negative) Urine Bilirubin Negative (Negative) Urine Urobilinogen 2.0 H (Less than 2) mg/dL Ur Leukocyte Esterase Moderate H (Negative) Urine RBC 11 H (0-3) /hpf Urine WBC 51 H (0-5) /hpf Ur Squamous Epith Cells 32 (0-5) /hpf Ur Transition Epith Cell 2 (None) /hpf Urine Bacteria Moderate H (None) /hpf Hyaline Casts 79 (0-3) /lpf Urine Mucus Few H (Occasional) /lpf Micro UA Comment Culture indicated Urine Culture Comments Culture indicated Imaging Data Radiologist's impression: ITS Impressions Chest X-Ray 01/06/18 15:20 CONCLUSION: No acute findings. Tortuous aorta. Abdomen/Pelvis CT 01/06/18 15:23 CONCLUSION: 1. No acute findings. Specifically no hydronephrosis or obstructive uropathy. No bladder calculi. 2. Fat-containing umbilical hernia measuring up to 5.9 cm in cephalocaudad extent. Discharge Plan Discharge Disposition Patient Disposition: 30 Still Patient Discharge Details Discharge Problem: Acute kidney injury, Urinary tract infection Physicians Team ED Provider: Fadi Waters ED Midlevel Provider: Charlene Perkins Primary Care Provider: Primary Care Eve Fowler Attending Provider: Chi Chance Discharge Interventions Interventions: Vital Signs Last Done: 01/06/18 17:30 Status ED Status: Admitted Patient
[2018-01-06 15:57] LABS: Baso # (Auto) 0.1 th/mm3 (0.0-0.2); Baso % (Auto) 0.6 % (0.0-2.0); Eos # (Auto) 0.1 th/mm3 (0.0-0.4); Eos % (Auto) 0.9 % (0.0-4.0); Hematocrit 44.9 % (35.0-46.0); Hemoglobin 15.5 gm/dL (11.6-15.3); Lymph # (Auto) 1.3 th/mm3 (1.0-4.8); Lymph % (Auto) 12.6 % (9.0-44.0); Mean Corpuscular HGB Conc 34.5 % (32.0-36.0); Mean Corpuscular Hemoglobin 34.8 pg (27.0-34.0); Mean Platelet Volume 9.5 fL (7.0-11.0); Mono % (Auto) 10.6 % (0.0-8.0); Neut # (Auto) 7.5 th/mm3 (1.8-7.7); Neut % (Auto) 75.3 % (16.0-70.0); Platelet Count 196 th/mm3 (150-450); Red Blood Count 4.45 mil/mm3 (4.00-5.30); Red Cell Distribution Width 13.9 % (11.6-17.2); White Blood Count 9.9 th/mm3 (4.0-11.0)
[2018-01-06 16:25] LABS: Alkaline Phosphatase 111 U/L (45-117); Total Protein 8.1 g/dL (6.4-8.2)
[2018-01-06 16:30] LABS: Alanine Aminotransferase 25 U/L (10-53); Albumin 4.1 g/dL (3.4-5.0); Anion Gap 15 meq/L (5-15); Aspartate Aminotransferase 59 U/L (15-37); Blood Urea Nitrogen 37 mg/dL (7-18); Calcium 9.3 mg/dL (8.5-10.1); Carbon Dioxide 23.3 meq/L (21.0-32.0); Chloride 95 meq/L (98-107); Glomerular Filtration Rate 8 mL/min (>89); Glucose,Random 112 mg/dL (74-106); Sodium 133 meq/L (136-145)
--- NOTE | 2018-01-06 16:30 | XR ---
EXAM DATE: 01/06/2018 3:49 PM EDT AGE/SEX: 62 years / Female INDICATIONS: Shortness of breath with back pain that radiates into chest and nausea. CLINICAL DATA: This is the patient's initial encounter. Patient reports that signs and symptoms have been present for 1 week and indicates a pain score of 4/10. MEDICAL/SURGICAL HISTORY: Chronic obstructive pulmonary disease. None. COMPARISON: [facility] [place], CHEST PA & LAT, 11/27/2017. . FINDINGS: A single AP view of the chest demonstrates the lungs to be symmetrically aerated without evidence of mass, infiltrate or effusion. The cardiomediastinal contours are unremarkable except tortuous aorta. Osseous structures are intact. CONCLUSION: No acute findings. Tortuous aorta. Electronically signed by: Ketan Pryor MD 01/06/2018 4:29 PM EDT
--- NOTE | 2018-01-06 17:05 | CT ---
EXAM DATE: 01/06/2018 4:50 PM EDT AGE/SEX: 62 years / Female INDICATIONS: Back pain and left flank pain. CLINICAL DATA: This is the patient's initial encounter. Patient reports that signs and symptoms have been present for 1 day and indicates a pain score of 7/10. MEDICAL/SURGICAL HISTORY: None. None. RADIATION DOSE: 8.24 CTDI (mGy) COMPARISON: No prior exams available for comparison. TECHNIQUE: Multiple contiguous axial images were obtained through the abdomen. Images were obtained using multiple row detector helical technique. Using automated exposure control and adjustment of the mA and/or kV according to patient size, radiation dose was kept as low as reasonably achievable to o btain optimal diagnostic quality images. DICOM format image data is available electronically for rev iew and comparison. FINDINGS: Minimal linear scarring at the lung bases. No acute findings in the liver, spleen, adrenals, kidneys or pancreas. No calcified gallstones or jerrica iary ductal dilatation. There is a fat-containing umbilical hernia. Minimal anterolisthesis the lumbo sacral junction with advanced facet arthropathy lower lumbar spine. CONCLUSION: 1. No acute findings. Specifically no hydronephrosis or obstructive uropathy. No bladder calculi. 2. Fat-containing umbilical hernia measuring up to 5.9 cm in cephalocaudad extent. Electronically signed by: Ketan Pryor MD 01/06/2018 5:03 PM EDT
[2018-01-06 17:25] LABS: Bacteria,Urine Moderate /hpf; Clarity,Urine Cloudy (Clear); Color,Urine Amber (Yellw/Straw); Glucose,Urine (UA) Negative (Negative); Hyaline Casts,Urine 79 /lpf (0-3); Leukocyte Esterase,Urine Moderate (Negative); Mucus,Urine Few /lpf (Occasional); Nitrite,Urine Negative (Negative); Specific Gravity,Urine 1.023 (1.002-1.035); Squamous Epithelial Cell,Urine 32 /hpf (0-5); Transitional Epi Cells,Urine 2 /hpf
[2018-01-06 17:28] LABS: Bilirubin,Urine Negative (Negative)
[2018-01-06 17:47] LABS: CKMB Percent 1.3 % (0.0-4.0); Creatine Kinase MB 3.1 ng/mL (0.5-3.6)
[2018-01-06] MEDS ORDERED: Haloperidol Inj 5 MG/ML Ampul IV.PUSH PRN (18:04)
[2018-01-06] MEDS: Sod Chloride 0.9% Inj 1,000 ML IV.CONT SCH (18:12)
--- NOTE | 2018-01-06 19:51 | P.HP ---
History of Present Illness Service: [facility] Primary Care Physician: No Primary Care Physician History of Present Illness: 62-year-old female with a past medical history significant for hypertension, hyperlipidemia and alcohol abuse presents the emergency department for the evaluation of multiple complaints. The patient reports that she has had back pain since . And that she began to feel dizzy, lightheaded and weak starting that same day. She endorses the previous 4 days of anorexia with accompanying nausea and vomiting although states she is now hungry. She endorses subjective fevers/chills. She endorses urinary frequency but denies pain with urination. No chest pain or shortness of breath. No abdominal or suprapubic pain. No flank pain. No lateralizing signs/symptoms. Inpatient Certification: I certify that the inpatient services were ordered in accordance with Medicare regulations governing the order. This includes certification that hospital inpatient services are reasonable and necessary and in the case of services not specified as inpatient-only under 42 CFR 419.22(n), that they are appropriately provided as inpatient services in accordance to with the 2-midnight benchmark under 43 CFR 412.3(e) Estimated Total Length of Stay (Days): 3 Plans for Post Hospital Care: Home Review of Systems All other systems reviewed negative except as stated in HPI [facility] - History History Provided By: Patient - Medical History Medical History: Medical History (Last Updated 01/06/18 @ 19:44 by Adelia Luna MD) Alcohol abuse H/O: hysterectomy HLD (hyperlipidemia) HTN (hypertension) - Surgical History Surgical History: Surgical History (Last Updated 01/06/18 @ 19:44 by Adelia Luna MD) Hx of tonsillectomy - Family History Family History: Family History (Last Updated 01/06/18 @ 19:44 by Adelia Luna MD) Other Colon cancer - Tobacco History Second Hand Smoke Exposure: No Tobacco Use In Past 30 Days: Yes Smoking Status: Current every day smoker Tobacco Type: Cigarettes - Alcohol History How Often Do You Have a Drink Containing Alcohol: 4 or more times a week - Substance Use History Substance History: No History of Abuse, Active Abuse - Substance Use Type Alcohol Status: Active Route Used: By Mouth Reason for Use: Feels Good - Travel History History of Recent Travel: No Recent Travel in the [place] Within the Last 8 Weeks: No Recent Travel Out of the Country Within the Last 8 Weeks: No - Immunization History Tetanus Immunization: Unsure Hx Influenza Vaccine This Season: No Medications and Allergies Active Medications: Active Medications Al Hydroxide/Mg Hydroxide (Milk Of Asmita Dickson) 30 ml PO Q12H PRN PRN Reason: Mild Constipation Flumazenil (Romazecon Inj) 0.2 mg IV.PUSH Q1M PRN PRN Reason: OVERSEDATION Folic Acid (Folic Acid) 1 mg PO DAILY PATRICIA Stop: 01/12/18 08:59 Haloperidol Lactate (Haldol Inj) 1 mg IV.PUSH Q15M PRN PRN Reason: for severe agitation Ceftriaxone Sodium 1,000 mg/ (Sodium Chloride) 100 mls @ 200 mls/hr IV.SIG Q24H PATRICIA Sodium Chloride (Ns Inj) 1,000 mls @ 100 mls/hr IV.CONT .Q10H PATRICIA Last Admin: 01/06/18 18:12 Dose: 100 mls/hr Lactobacillus Acidophilus (Lactinex) 1 tab PO TID PATRICIA Lorazepam (Ativan) 1 mg PO Q4H PRN PRN Reason: for CIWA 8-10 Lorazepam (Ativan) 2 mg PO Q2H PRN PRN Reason: for CIWA 11-14 Lorazepam (Ativan Inj) 2 mg IV.PUSH Q2H PRN PRN Reason: for CIWA 11-14 Lorazepam (Ativan Inj) 2 mg IV.PUSH Q1H PRN PRN Reason: for CIWA 15-20 Lorazepam (Ativan Inj) 2 mg IV.PUSH Q15M PRN PRN Reason: for CIWA > 20 Lorazepam (Ativan Inj) 1 mg IV.PUSH Q4H PRN PRN Reason: for CIWA 8-10 Metoclopramide HCl (Reglan Inj) 5 mg IV.PUSH Q6HR PRN; Protocol PRN Reason: NAUSEA OR VOMITING Multivitamins/Minerals (Theragran-M) 1 tab PO DAILY PATRICIA Stop: 01/12/18 08:59 Sodium Chloride (Ns Flush) 2 ml IV.FLUSH PRN PRN PRN Reason: FLUSH AFTER USING IV ACCESS Last Admin: 01/06/18 15:34 Dose: 2 ml Thiamine HCl (Vitamin B1) 100 mg PO DAILY [facility] Allergies Allergy/AdvReac Type Severity Reaction Status Date / Time No Known Allergies AdvReac Unknown none Uncoded 01/06/18 16:11 Home Medications Medication Instructions Recorded Confirmed Type atenolol 50 mg PO DAILY 01/06/18 01/06/18 History lisinopril 10 mg PO DAILY 01/06/18 01/06/18 History lovastatin 20 mg PO DAILY 01/06/18 01/06/18 History tizanidine [Zanaflex] 2 mg PO HS PRN 01/06/18 01/06/18 History Exam Vital signs: Vital Signs 01/06/18 14:48 01/06/18 15:00 01/06/18 15:31 Temperature 96.3 F L Pulse Rate 84 71 67 Respiratory Rate 20 16 16 Blood Pressure 96/52 L 108/53 L Pulse Oximetry 98 100 01/06/18 17:30 Temperature Pulse Rate 67 Respiratory Rate 16 Blood Pressure 123/75 Pulse Oximetry 100 Intake & Output 01/06/18 01/06/18 01/07/18 06:59 18:59 06:59 Weight 60 kg Narrative: Gen.: No acute distress Head: Normocephalic. Atraumatic. EENT: Pupils equal round and reactive to light. Nose without drainage. Airway intact. Throat without injection. Cardiovascular: Regular rate and rhythm. No murmurs, rubs or gallops. Respiratory: Lungs clear to auscultation bilaterally. No wheezes or rhonchi. Abdomen: Soft, nontender, nondistended. No peritoneal signs. Musculoskeletal: No gross deformities. No edema. Skin: 5 x 3 cm abrasion on the medial aspect of the left lower extremity without signs of infection Neuro: Sensory and motor grossly intact. Cranial nerves II through XII grossly intact. Psych: Appropriate mood and affect Results - Labs CBC & Chem 7: 01/06/18 15:40 01/06/18 15:40 Labs: Laboratory Results - last 24 hr 01/06/18 01/06/18 01/06/18 15:40 15:40 15:40 WBC 9.9 RBC 4.45 Hgb 15.5 H Hct 44.9 MCV 101.0 H MCH 34.8 H MCHC 34.5 RDW 13.9 Plt Count 196 MPV 9.5 Neut % (Auto) 75.3 H Lymph % (Auto) 12.6 [place] % (Auto) 10.6 H Eos % (Auto) 0.9 Baso % (Auto) 0.6 Neut # (Auto) 7.5 Lymph # (Auto) 1.3 [place] # (Auto) 1.0 H Eos # (Auto) 0.1 Baso # (Auto) 0.1 WBC Differential . Differential Comment Auto diff final Sodium 133 L Potassium 4.0 Chloride 95 L Carbon Dioxide 23.3 Anion Gap 15 BUN 37 H Creatinine 5.28 H Estimated GFR 8 L Random Glucose 112 H Calcium 9.3 Magnesium 2.0 Total Bilirubin 1.5 H AST 59 H ALT 25 Alkaline Phosphatase 111 Total Creatine Kinase 231 H CK-MB (CK-2) 3.1 CK-MB (CK-2) % 1.3 Troponin I Less than 0.02 L Total Protein 8.1 Albumin 4.1 Lipase 202 Urine Color Urine Clarity Urine pH Ur Specific [place] Urine Protein Urine Glucose (UA) Urine Ketones Urine Occult Blood Urine Nitrate Urine Bilirubin Urine Urobilinogen Ur Leukocyte Esterase Urine RBC Urine WBC Ur Squamous Epith Cells Ur Transition Epith Cell Urine Bacteria Hyaline Casts Urine Mucus Micro UA Comment Urine Culture Comments 01/06/18 16:00 WBC RBC Hgb Hct MCV MCH MCHC RDW Plt Count MPV Neut % (Auto) Lymph % (Auto) [place] % (Auto) Eos % (Auto) Baso % (Auto) Neut # (Auto) Lymph # (Auto) [place] # (Auto) Eos # (Auto) Baso # (Auto) WBC Differential Differential Comment Sodium Potassium Chloride Carbon Dioxide Anion Gap BUN Creatinine Estimated GFR Random Glucose Calcium Magnesium Total Bilirubin AST ALT Alkaline Phosphatase Total Creatine Kinase CK-MB (CK-2) CK-MB (CK-2) % Troponin I Total Protein Albumin Lipase Urine Color Dolores Urine Clarity Cloudy H Urine pH 5.0 Ur Specific [place] 1.023 Urine Protein 100 H Urine Glucose (UA) Negative Urine Ketones Trace H Urine Occult Blood Small H Urine Nitrate Negative Urine Bilirubin Negative Urine Urobilinogen 2.0 H Ur Leukocyte Esterase Moderate H Urine RBC 11 H Urine WBC 51 H Ur Squamous Epith Cells 32 Ur Transition Epith Cell 2 Urine Bacteria Moderate H Hyaline Casts 79 Urine Mucus Few H Micro UA Comment Culture indicated Urine Culture Comments Culture indicated - Imaging Impressions Chest X-Ray 01/06/18 15:20 CONCLUSION: No acute findings. Tortuous aorta. Abdomen/Pelvis CT 01/06/18 15:23 CONCLUSION: 1. No acute findings. Specifically no hydronephrosis or obstructive uropathy. No bladder calculi. 2. Fat-containing umbilical hernia measuring up to 5.9 cm in cephalocaudad extent. Caprini VTE Risk Assessment Caprini VTE Risk Assessment: Moderate/High Risk (score >= 2) Caprini Risk Assessment Model: Point Value = 1 Point Value = 2 Point Value = 3 Point Value = 5 Age 41-60 Minor surgery BMI > 25 kg/m2 Swollen legs Varicose veins or History of unexplained or recurrent spontaneous Oral contraceptives or hormone replacement Sepsis (< 1 month) Serious lung disease, including pneumonia (< 1 month) Abnormal pulmonary function Acute myocardial infarction Congestive heart failure (< 1 month) History of inflammatory bowel disease Medical patient at bed rest Age 61-74 Arthroscopic surgery Major open surgery (> 45 min) Laparoscopic surgery (> 45 min) Malignancy Confined to bed (> 72 hours) Immobilizing plaster cast Central venous access Age >= 75 History of VTE Family history of VTE Factor V Leiden Prothrombin [id number] Lupus anticoagulant Anticardiolipin antibodies Elevated serum homocysteine Heparin-induced thrombocytopenia Other congenital or acquired thrombophilia Stroke (< 1 month) Elective arthroplasty Hip, pelvis, or leg fracture Acute spinal cord injury (< 1 month) Prophylaxis Regimen: Total Risk Factor Score Risk Level Prophylaxis Regimen 0-1 Low Early ambulation 2 Moderate Order ONE of the following: *Sequential Compression Device (SCD) *Heparin 5000 units SQ BID 3-4 Higher Order ONE of the following medications: *Heparin 5000 units SQ TID *Enoxaparin/Lovenox 40 mg SQ daily (WT < 150 kg, CrCl > 30 mL/min) *Enoxaparin/Lovenox 30 mg SQ daily (WT < 150 kg, CrCl > 10-29 mL/min) *Enoxaparin/Lovenox 30 mg SQ BID (WT < 150 kg, CrCl > 30 mL/min) AND/OR *Sequential Compression Device (SCD) 5 or more Highest Order ONE of the following medications: *Heparin 5000 units SQ TID (Preferred with Epidurals) *Enoxaparin/Lovenox 40 mg SQ daily (WT < 150 kg, CrCl > 30 mL/min) *Enoxaparin/Lovenox 30 mg SQ daily (WT < 150 kg, CrCl > 10-29 mL/min) *Enoxaparin/Lovenox 30 mg SQ BID (WT < 150 kg, CrCl > 30 mL/min) AND *Sequential Compression Device (SCD) Assessment and Plan - Plan Assessment/plan: 1. Acute renal failure BUN/creatinine 37/5.28 IV fluid hydration Renal ultrasound pending Nephrology consulted, appreciate recommendations 2. Urinary tract infection UA consistent with UTI Urine culture pending Rocephin 3. Alcohol abuse Thiamine CIWA protocol Monitor for signs of withdrawal 4. Hypertension/hyperlipidemia Continue home medications Clonidine as needed FEN Regular diet Electrolytes: Monitor and replete as needed NS at 100 cc/hour Heparin
[2018-01-06] MEDS: Heparin - SQ 10,000 UNITS/ML Vial SQ SCH (21:04)
[2018-01-06] MEDS: LORazepam 1 MG Tablet PO PRN (21:05)
--- NOTE | 2018-01-06 22:29 | US ---
EXAM DATE: 01/06/2018 10:21 PM EDT AGE/SEX: 62 years / Female INDICATIONS: Frequent urinary tract infections. CLINICAL DATA: This is the patient's initial encounter. Patient reports that signs and symptoms have been present for 2 days and indicates a pain score of 2/10. MEDICAL/SURGICAL HISTORY: Hypertension. Hypercholesterolemia. Colon cancer Hysterectomy. [place] [facility] [place], 01/06/2018. . MEASUREMENTS: Right Kidney:__9.3 x 3.9 x 3.9 cm Left Kidney:__9.5 x 4.4 x 4.7 cm FINDINGS: Right Kidney: Normal echotexture and cortical thickness. No mass or hydronephrosis. Left Kidney: Normal echotexture and cortical thickness. No mass or hydronephrosis. Bladder: Decompressed. Not well evaluated. Other: CONCLUSION: 1. Negative renal sonogram. Electronically signed by: Ketan Pryor MD 01/06/2018 10:27 PM EDT
--- NOTE | 2018-01-06 23:12 | ECG ---
Date Performed: 01/06/2018 Time Performed: 17:21:42 PTAGE: 62 years EKG: JUNCTIONAL RHYTHM ST/T-WAVE ABNORMALITY, CONSIDER ANTERIOR ISCHEMIA ABNORMAL ECG PREVIOUS TRACING : 11/09/2016 13.48 Compared to previous tracing, T wave inversion in leads V2 and V3 is now present. DOCTOR: Uche Lozano Interpretating Date/Time 01/06/2018 23:10:20
[2018-01-07] MEDS: Sod Chloride 0.9% Inj 1,000 ML IV.CONT SCH ×2 (04:30→17:53)
[2018-01-07] MEDS: Atenolol 50 MG Tablet PO SCH (08:28)
[2018-01-07] MEDS: Folic Acid 1 MG Tablet PO SCH (08:28)
[2018-01-07] MEDS: Lactobacillus Acidophilus/L. Spores Tablet PO SCH ×3 (08:29→19:18)
[2018-01-07] MEDS: Heparin - SQ 10,000 UNITS/ML Vial SQ SCH ×2 (08:29→20:25)
[2018-01-07] MEDS: Multivitamin/Minerals Therapeutic Tablet PO SCH (08:29)
[2018-01-07] MEDS: LORazepam 1 MG Tablet PO PRN (08:30)
[2018-01-07 08:32] LABS: Baso % (Auto) 0.7 % (0.0-2.0); Eos # (Auto) 0.2 th/mm3 (0.0-0.4); Eos % (Auto) 2.6 % (0.0-4.0); Hematocrit 37.7 % (35.0-46.0); Hemoglobin 13.1 gm/dL (11.6-15.3); Lymph # (Auto) 1.3 th/mm3 (1.0-4.8); Lymph % (Auto) 18.1 % (9.0-44.0); Mean Corpuscular HGB Conc 34.7 % (32.0-36.0); Mean Corpuscular Hemoglobin 35.4 pg (27.0-34.0); Mean Corpuscular Volume 102.1 fL (80.0-100.0); Mean Platelet Volume 9.8 fL (7.0-11.0); Mono # (Auto) 0.9 th/mm3 (0.0-0.9); Mono % (Auto) 11.9 % (0.0-8.0); Neut # (Auto) 4.8 th/mm3 (1.8-7.7); Neut % (Auto) 66.7 % (16.0-70.0); Platelet Count 155 th/mm3 (150-450); Red Blood Count 3.69 mil/mm3 (4.00-5.30); Red Cell Distribution Width 13.4 % (11.6-17.2); White Blood Count 7.2 th/mm3 (4.0-11.0)
[2018-01-07 09:08] LABS: Alanine Aminotransferase 19 U/L (10-53); Alkaline Phosphatase 102 U/L (45-117); Anion Gap 14 meq/L (5-15); Aspartate Aminotransferase 38 U/L (15-37); Blood Urea Nitrogen 41 mg/dL (7-18); Calcium 8.8 mg/dL (8.5-10.1); Carbon Dioxide 22.5 meq/L (21.0-32.0); Chloride 101 meq/L (98-107); Glomerular Filtration Rate 13 mL/min (>89); Glucose,Random 88 mg/dL (74-106); Potassium 3.4 meq/L (3.5-5.1); Sodium 137 meq/L (136-145); Total Protein 6.5 g/dL (6.4-8.2)
--- NOTE | 2018-01-07 11:06 | ECG ---
Date Performed: 01/07/2018 Time Performed: 10:18:44 PTAGE: 62 years EKG: Sinus rhythm NORMAL ECG PREVIOUS TRACING : 01/06/2018 17.21 Compared to previous tracing, anterior T wave inversion has resolved. DOCTOR: Uche Lozano Interpretating Date/Time 01/07/2018 11:06:13
--- NOTE | 2018-01-07 13:06 | P.PN ---
Subjective Interval history: Follow-up acute renal injury/alcohol abuse January 07, 2018-patient seen and examined, denies any tremors, chest pain or shortness of breath. Creatinine improving. Patient is requesting if she can be given beer Physical Exam Vital signs: Vital Signs 01/06/18 14:48 01/06/18 15:00 01/06/18 15:31 Temperature 96.3 F L Pulse Rate 84 71 67 Respiratory Rate 20 16 16 Blood Pressure 96/52 L 108/53 L Pulse Oximetry 98 100 01/06/18 17:30 01/06/18 20:00 01/06/18 20:30 Temperature 97.9 F Pulse Rate 67 67 68 Respiratory Rate 16 18 Blood Pressure 123/75 124/63 Pulse Oximetry 100 98 01/07/18 00:00 01/07/18 00:15 01/07/18 04:00 Temperature 97.7 F 98 F Pulse Rate 73 66 75 Respiratory Rate 18 18 Blood Pressure 103/65 114/71 Pulse Oximetry 97 98 01/07/18 08:00 Temperature 97.9 F Pulse Rate 66 Respiratory Rate 12 Blood Pressure 137/75 Pulse Oximetry 95 Intake & Output 01/06/18 01/07/18 01/07/18 18:59 06:59 18:59 Intake Total 1640 / 1640 Balance 1640 / 1640 Weight 60 kg 72.91 kg Intake: IV 1000 / 1000 NS Inj 1,000 ML @ 100 mls/hr IV 1000 / 1000 .CONT .Q10H PATRICIA Rx#:[id number] Oral 640 / 640 Other: # Voids 3 Date of Last Bowel Movement 01/07/18 01/07/18 # Bowel Movements 2 Weight On Admission 72.91 kg Narrative: GENERAL: NAD SKIN: Warm and dry. HEAD: Normocephalic. EYES: No scleral icterus. No injection or drainage. NECK: Supple, trachea midline. No JVD or lymphadenopathy. CARDIOVASCULAR: Regular rate and rhythm without murmurs, gallops, or rubs. RESPIRATORY: Breath sounds equal bilaterally. No accessory muscle use. GASTROINTESTINAL: Abdomen soft, non-tender, nondistended. MUSCULOSKELETAL: No cyanosis, or edema. BACK: Nontender without obvious deformity. No CVA tenderness. Results - Labs CBC & Chem 7: 01/07/18 07:50 01/07/18 07:30 Laboratory Results - last 24 hr 01/06/18 01/06/1801/06/18 15:40 15:40 15:40 WBC 9.9 RBC 4.45 Hgb 15.5 H Hct 44.9 MCV 101.0 H MCH 34.8 H MCHC 34.5 RDW 13.9 Plt Count 196 MPV 9.5 Neut % (Auto) 75.3 H Lymph % (Auto) 12.6 [place] % (Auto) 10.6 H Eos % (Auto) 0.9 Baso % (Auto) 0.6 Neut # (Auto) 7.5 Lymph # (Auto) 1.3 [place] # (Auto) 1.0 H Eos # (Auto) 0.1 Baso # (Auto) 0.1 WBC Differential . Differential Comment Auto diff final Sodium 133 L Potassium 4.0 Chloride 95 L Carbon Dioxide 23.3 Anion Gap 15 BUN 37 H Creatinine 5.28 H Estimated GFR 8 L Random Glucose 112 H Calcium 9.3 Magnesium 2.0 Total Bilirubin 1.5 H AST 59 H ALT 25 Alkaline Phosphatase 111 Total Creatine Kinase 231 H CK-MB (CK-2) 3.1 CK-MB (CK-2) % 1.3 Troponin I Less than 0.02 L Total Protein 8.1 Albumin 4.1 Lipase 202 Urine Color Urine Clarity Urine pH Ur Specific [place] Urine Protein Urine Glucose (UA) Urine Ketones Urine Occult Blood Urine Nitrate Urine Bilirubin Urine Urobilinogen Ur Leukocyte Esterase Urine RBC Urine WBC Ur Squamous Epith Cells Ur Transition Epith Cell Urine Bacteria Hyaline Casts Urine Mucus Micro UA Comment Urine Culture Comments 01/06/18 01/07/18 01/07/18 16:00 07:30 07:50 WBC 7.2 RBC 3.69 L Hgb 13.1 D Hct 37.7 MCV 102.1 H MCH 35.4 H MCHC 34.7 RDW 13.4 Plt Count 155 MPV 9.8 Neut % (Auto) 66.7 Lymph % (Auto) 18.1 [place] % (Auto) 11.9 H Eos % (Auto) 2.6 Baso % (Auto) 0.7 Neut # (Auto) 4.8 Lymph # (Auto) 1.3 [place] # (Auto) 0.9 Eos # (Auto) 0.2 Baso # (Auto) 0.0 WBC Differential . Differential Comment Auto diff final Sodium 137 Potassium 3.4 L Chloride 101 Carbon Dioxide 22.5 Anion Gap 14 BUN 41 H Creatinine 3.57 H Estimated GFR 13 L Random Glucose 88 Calcium 8.8 Magnesium Total Bilirubin 0.8 AST 38 H ALT 19 Alkaline Phosphatase 102 Total Creatine Kinase CK-MB (CK-2) CK-MB (CK-2) % Troponin I Total Protein 6.5 D Albumin 3.0 L D Lipase Urine Color Dolores Urine Clarity Cloudy H Urine pH 5.0 Ur Specific [place] 1.023 Urine Protein 100 H Urine Glucose (UA) Negative Urine Ketones Trace H Urine Occult Blood Small H Urine Nitrate Negative Urine Bilirubin Negative Urine Urobilinogen 2.0 H Ur Leukocyte Esterase Moderate H Urine RBC 11 H Urine WBC 51 H Ur Squamous Epith Cells 32 Ur Transition Epith Cell 2 Urine Bacteria Moderate H Hyaline Casts 79 Urine Mucus Few H Micro UA Comment Culture indicated Urine Culture Comments Culture indicated Microbiology 01/06/18 16:00 Clean Catch Urine Urine Culture - Preliminary gram negative rods - Imaging Impressions Abdomen/Bladder Ultrasound 01/06/18 00:00 CONCLUSION: 1. Negative renal sonogram. Chest X-Ray 01/06/18 15:20 CONCLUSION: No acute findings. Tortuous aorta. Abdomen/Pelvis CT 01/06/18 15:23 CONCLUSION: 1. No acute findings. Specifically no hydronephrosis or obstructive uropathy. No bladder calculi. 2. Fat-containing umbilical hernia measuring up to 5.9 cm in cephalocaudad extent. Assessment and Plan - Assessment (1) Alcohol abuse Code(s): F10.10 - Alcohol abuse, uncomplicated Status: Acute (2) Acute kidney injury Code(s): N17.9 - Acute kidney failure, unspecified Status: Acute (3) Urinary tract infection Code(s): N39.0 - Urinary tract infection, site not specified Status: Acute - Plan 62-year-old female with 1. Acute renal failure Renal indices improving Increase IV fluid rate Renal ultrasound pending Nephrology consulted, appreciate recommendations 2. Urinary tract infection Urine culture pending Continue Rocephin 3. Alcohol abuse Thiamine CIWA protocol Monitor for signs of withdrawal Start Librium as needed 4. Hypertension/hyperlipidemia Continue home medications Clonidine as needed (3) Urinary tract infection Qualifiers: Urinary tract infection type: acute cystitis Hematuria presence: with hematuria Qualified Code(s): N30.01 - Acute cystitis with hematuria
--- NOTE | 2018-01-07 15:52 | MB ---
cc: Chi Whaley MD DATE: 01/07/2018 REASON FOR CONSULTATION: Acute renal failure management. HISTORY OF PRESENT ILLNESS: This is a 62-year-old female with a long history of alcohol abuse, also history of hypertension, dyslipidemia. The patient presented to the emergency room last night with general malaise, back pain, nausea, vomiting and fevers. The patient was found to have a UTI and was started on Rocephin and urine cultures are pending at this point. The patient had been taking Motrin and Aleve at home as well for approximately a week and received a dose of Toradol in the ER as well. Her creatinine value came back to the level of 5.2. Her previous creatinine was 1.1 in October of this year. Overnight, the patient was assessed with acute renal failure secondary to volume depletion. The patient had limited p.o. intake for approximately a week with nausea and vomiting, apparently in the setting of her UTI. She was given IV fluids with normal saline at 100 mL per hour and her creatinine has improved to a level of 3.5 today. At this point, the patient is resting in bed comfortably. She reports she is feeling better since she was admitted here. She is being monitored for withdrawals as well on the medical floor. Given findings of acute renal failure, nephrology was consulted for further evaluation. REVIEW OF SYSTEMS: The patient denies any fevers or chills at this time; however, did have fevers and chills with nausea and vomiting prior to admission. The patient also was taking NSAIDs. The patient had no diarrhea, no constipation. Otherwise, no discernable dysuria, however, has had ongoing malaise and fatigue. No dizziness or loss of consciousness. Otherwise, review of systems is negative. PAST MEDICAL HISTORY: Includes alcohol abuse, hypertension, dyslipidemia. PAST SURGICAL HISTORY: Includes a tonsillectomy. FAMILY HISTORY: Includes colon cancer. SOCIAL HISTORY: The patient currently drinks heavily more than 4-5 times per week. Also, is a daily smoker. ALLERGIES: NO KNOWN DRUG ALLERGIES. PHYSICAL EXAMINATION: VITAL SIGNS: At time of evaluation: Temperature 97.2, pulse 66, respiratory rate 12, blood pressure 116/61. GENERAL: Awake, alert, oriented, in no apparent distress. NECK: Soft, supple. CARDIAC: Regular rate and rhythm. PULMONARY: Clear to auscultation. ABDOMEN: Soft, nontender, nondistended. EXTREMITIES: No edema. LABORATORY DATA: Urinalysis with 100 protein, trace ketones, small occult blood, 11 RBCs, 51 WBCs, 32 epithelial cells and moderate bacteria with few mucus, 79 hyaline casts were noted. Sodium 137, potassium 3.4, chloride 101, bicarbonate 22.5, BUN 41, creatinine 3.5, glucose of 88, magnesium of 2, AST of 38, ALT 19, albumin 3.0. Admission creatinine was 5.2. Previous creatinine was 1.1 in 10/2017. Renal ultrasound was within normal limits. ASSESSMENT AND PLAN: 1. Acute kidney injury. The patient has developed acute kidney injury secondary to volume depletion, as well as NSAID use. The patient was taking Motrin at home for generalized pains and back pains, which likely were due to her urinary tract infection. At this point, she has had a good response to IV fluids and agree with IV fluids with 100 mL of normal saline per hour. Continue with IV fluids and monitor for improvement. The patient has had significant improvement in renal function with a creatinine decreased from 5 down to 3.5 overnight. Continue with IV fluids. Of note, hold all NSAIDs. The patient was given a dose of Toradol earlier. Continue to avoid NSAID use. Continue to monitor for further renal improvement. 2. Urinary tract infection. Urinalysis suggestive of urinary tract infection. The patient has been started on Rocephin. Continue to follow cultures. 3. Alcohol abuse. The patient is being monitored for withdrawals. Continue to monitor. 4. Hypertension. Blood pressure is stable. Continue with medications. MD TAVON JimenezP/TL , 03:26 PM , 03:50 PM KRISTINA
[2018-01-08] MEDS: Sod Chloride 0.9% Inj 1,000 ML IV.CONT SCH ×2 (02:24→02:42)
[2018-01-08] MEDS: LORazepam 1 MG Tablet PO PRN (05:37)
[2018-01-08] MEDS: Multivitamin/Minerals Therapeutic Tablet PO SCH (09:03)
[2018-01-08] MEDS: Lactobacillus Acidophilus/L. Spores Tablet PO SCH ×3 (09:03→17:52)
[2018-01-08] MEDS: Atenolol 50 MG Tablet PO SCH (09:03)
[2018-01-08] MEDS: Heparin - SQ 10,000 UNITS/ML Vial SQ SCH ×2 (09:04→20:22)
[2018-01-08 09:10] LABS: Calcium 8.6 mg/dL (8.5-10.1); Potassium 3.4 meq/L (3.5-5.1)
[2018-01-08] MEDS: Folic Acid 1 MG Tablet PO SCH (09:10)
--- NOTE | 2018-01-08 12:19 | P.PN ---
Subjective Interval history: Follow-up acute renal injury/alcohol abuse January 07, 2018-patient seen and examined, denies any tremors, chest pain or shortness of breath. Creatinine improving. Patient is requesting if she can be given beer January 08, 2018-patient seen and examined, renal indices improved creatinine down to 1.47. No acute event overnight. BP slightly up. Physical Exam Vital signs: Vital Signs 01/07/18 16:00 01/07/18 20:00 01/07/18 23:45 Temperature 98.3 F 97.6 F 98.6 F Pulse Rate 69 72 68 Respiratory Rate 12 18 18 Blood Pressure 121/75 164/77 H 163/93 H Pulse Oximetry 97 98 96 01/08/18 00:00 01/08/18 00:40 01/08/18 04:00 Temperature 98.6 F 98.3 F Pulse Rate 68 67 Respiratory Rate 18 18 18 Blood Pressure 163/93 H 144/72 H 170/96 H Pulse Oximetry 96 95 01/08/18 04:08 01/08/18 08:00 01/08/18 11:37 Temperature 97.7 F 97.7 F Pulse Rate 58 L 60 52 L Respiratory Rate 20 20 Blood Pressure 181/95 H 178/99 H Pulse Oximetry 96 99 Intake & Output 01/07/18 01/08/18 01/08/18 18:59 06:59 18:59 Intake Total 1441 / 1441 Balance 1441 / 1441 Weight 72.9 kg Intake: IV 981 / 981 NS Inj 1,000 ML @ 125 mls/hr IV 981 / 981 .CONT .Q8H [facility] Rx#:[id number] Oral 460 / 460 Other: # Voids 5 2 Date of Last Bowel Movement 01/07/18 # Bowel Movements 1 Narrative: GENERAL: NAD SKIN: Warm and dry. HEAD: Normocephalic. EYES: No scleral icterus. No injection or drainage. NECK: Supple, trachea midline. No JVD or lymphadenopathy. CARDIOVASCULAR: Regular rate and rhythm without murmurs, gallops, or rubs. RESPIRATORY: Breath sounds equal bilaterally. No accessory muscle use. GASTROINTESTINAL: Abdomen soft, non-tender, nondistended. MUSCULOSKELETAL: No cyanosis, or edema. BACK: Nontender without obvious deformity. No CVA tenderness. Results - Labs CBC & Chem 7: 01/07/18 07:50 01/08/18 05:59 Laboratory Results - last 24 hr 01/06/18 01/08/18 16:00 05:59 Sodium 141 Potassium 3.4 L Chloride 107 Carbon Dioxide 21.0 Anion Gap 13 BUN 34 H Creatinine 1.47 H Estimated GFR 36 L Random Glucose 77 Calcium 8.6 Urine Color [place] Urine Clarity Cloudy H Urine pH 5.0 Ur Specific [place] 1.023 Urine Protein 100 H Urine Glucose (UA) Negative Urine Ketones Trace H Urine Occult Blood Small H Urine Nitrate Negative Urine Bilirubin Negative Urine Urobilinogen 2.0 H Ur Leukocyte Esterase Moderate H Urine RBC 11 H Urine WBC 51 H Ur Squamous Epith Cells 32 Ur Transition Epith Cell 2 Urine Bacteria Moderate H Hyaline Casts 79 Urine Mucus Few H Micro UA Comment Culture indicated Urine Culture Comments Culture indicated Microbiology 01/06/18 16:00 Clean Catch Urine Urine Culture - Final Enterobacter aerogenes - Procedures None Assessment and Plan - Assessment (1) Alcohol abuse Code(s): F10.10 - Alcohol abuse, uncomplicated Status: Chronic (2) Acute kidney injury Code(s): N17.9 - Acute kidney failure, unspecified Status: Resolved (3) Urinary tract infection Code(s): N39.0 - Urinary tract infection, site not specified Status: Acute - Plan 62-year-old female with 1. Acute renal failure Renal indices improved with IV fluid rate Avoid all nephrotoxic drug 2. Urinary tract infection-E. coli Discontinue Rocephin, start Ceftin p.o. on discharge 3. Alcohol abuse Thiamine CIWA protocol Monitor for signs of withdrawal Continue with Librium as needed 4. Hypertension/hyperlipidemia Continue home medications, resume lisinopril and continue atenolol Clonidine as needed (3) Urinary tract infection Qualifiers: Urinary tract infection type: acute cystitis Hematuria presence: with hematuria Qualified Code(s): N30.01 - Acute cystitis with hematuria
--- NOTE | 2018-01-08 12:29 | P.DS ---
Date of admission: 01/06/18 17:59 Primary care physician: No Primary Care Physician Anticipated date of discharge: 01/09/18 Brief History from admission: 62-year-old female with a past medical history significant for hypertension, hyperlipidemia and alcohol abuse presents the emergency department for the evaluation of multiple complaints. The patient reports that she has had back pain since . And that she began to feel dizzy, lightheaded and weak starting that same day. She endorses the previous 4 days of anorexia with accompanying nausea and vomiting although states she is now hungry. She endorses subjective fevers/chills. She endorses urinary frequency but denies pain with urination. No chest pain or shortness of breath. No abdominal or suprapubic pain. No flank pain. No lateralizing signs/symptoms. DS: Diagnosis - Discharge Diagnosis (1) Alcohol abuse Status: Chronic (2) Acute kidney injury Status: Resolved (3) Urinary tract infection Status: Acute (4) Hypertension Status: Chronic DS: Medications - Discharge Medications Prescriptions: ciprofloxacin HCl [Cipro] 250 mg PO Q12H #10 tab thiamine HCl (vitamin B1) 100 mg PO DAILY #30 tab DS: Summary Hospital Course: While In the hospital, patient was treated for 1. Acute renal failure Renal indices improved with IV fluid rate Avoid all nephrotoxic drug 2. Urinary tract infection-E. coli Discontinue Rocephin, start Cipro 250mg BID x 5 days on discharge 3. Alcohol abuse Thiamine [facility] protocol Monitor for signs of withdrawal Continue with Librium as needed 4. Hypertension/hyperlipidemia Continue home medications, resume lisinopril and continue atenolol Clonidine as needed - Time Spent with Patient Total time spent providing and/or coordinating discharge services: Less than 30 minutes - Quality: VTE Deep Vein Thrombosis/Pulmonary Embolism Present on Admission: No Exam Vital signs: Vital Signs 01/07/18 16:00 01/07/18 20:00 01/07/18 23:45 Temperature 98.3 F 97.6 F 98.6 F Pulse Rate 69 72 68 Respiratory Rate 12 18 18 Blood Pressure 121/75 164/77 H 163/93 H Pulse Oximetry 97 98 96 01/08/18 00:00 01/08/18 00:40 01/08/18 04:00 Temperature 98.6 F 98.3 F Pulse Rate 68 67 Respiratory Rate 18 18 18 Blood Pressure 163/93 H 144/72 H 170/96 H Pulse Oximetry 96 95 01/08/18 04:08 01/08/18 08:00 01/08/18 11:37 Temperature 97.7 F 97.7 F Pulse Rate 58 L 60 52 L Respiratory Rate 20 20 Blood Pressure 181/95 H 178/99 H Pulse Oximetry 96 99 Intake & Output 01/07/18 01/08/18 01/08/18 18:59 06:59 18:59 Intake Total 1441 / 1441 Balance 1441 / 1441 Weight 72.9 kg Intake: IV 981 / 981 NS Inj 1,000 ML @ 125 mls/hr IV 981 / 981 .CONT .Q8H [facility] Rx#:[id number] Oral 460 / 460 Other: # Voids 5 2 Date of Last Bowel Movement 01/07/18 # Bowel Movements 1 Narrative: GENERAL: NAD SKIN: Warm and dry. HEAD: Normocephalic. EYES: No scleral icterus. No injection or drainage. NECK: Supple, trachea midline. No JVD or lymphadenopathy. CARDIOVASCULAR: Regular rate and rhythm without murmurs, gallops, or rubs. RESPIRATORY: Breath sounds equal bilaterally. No accessory muscle use. GASTROINTESTINAL: Abdomen soft, non-tender, nondistended. MUSCULOSKELETAL: No cyanosis, or edema. BACK: Nontender without obvious deformity. No CVA tenderness. Results Procedures completed during hospitalization: None Labs on day of discharge: Labs from last 24 hours 01/08/18 01/06/18 05:59 16:00 Sodium 141 Potassium 3.4 L Chloride 107 Carbon Dioxide 21.0 Anion Gap 13 BUN 34 H Creatinine 1.47 H Estimated GFR 36 L Random Glucose 77 Calcium 8.6 Urine Color [place] Urine Clarity Cloudy H Urine pH 5.0 Ur Specific [place] 1.023 Urine Protein 100 H Urine Glucose (UA) Negative Urine Ketones Trace H Urine Occult Blood Small H Urine Nitrate Negative Urine Bilirubin Negative Urine Urobilinogen 2.0 H Ur Leukocyte Esterase Moderate H Urine RBC 11 H Urine WBC 51 H Ur Squamous Epith Cells 32 Ur Transition Epith Cell 2 Urine Bacteria Moderate H Hyaline Casts 79 Urine Mucus Few H Micro UA Comment Culture indicated Urine Culture Comments Culture indicated - Impressions ITS Impressions Abdomen/Bladder Ultrasound 01/06/18 00:00 CONCLUSION: 1. Negative renal sonogram. Chest X-Ray 01/06/18 15:20 CONCLUSION: No acute findings. Tortuous aorta. Abdomen/Pelvis CT 01/06/18 15:23 CONCLUSION: 1. No acute findings. Specifically no hydronephrosis or obstructive uropathy. No bladder calculi. 2. Fat-containing umbilical hernia measuring up to 5.9 cm in cephalocaudad extent. Discharge Plan - Discharge Disposition Patient Disposition: 01 Discharge Home - Discharge Condition Condition: Good - Discharge Order Discharge Orders: Discharge Order (Routine); Ordered 01/08/18 Ordered By: Denzel Dias - Physicians Team Primary Care Provider: Primary Care Eve Fowler Attending Provider: Denzel Dias Other Providers: Chi Whaley MD
[2018-01-08] MEDS: Lisinopril 10 MG Tablet PO SCH (14:09)
--- NOTE | 2018-01-08 14:12 | P.PNNP ---
Subjective Interval history: No acute complaints. Plans for discharge today. Creatinine improving at 1.47 today <Francoise Mccollum - Last Filed: 01/08/18 14:04> Physical Exam Vital signs: Vital Signs 01/07/18 16:00 01/07/18 20:00 01/07/18 23:45 Temperature 98.3 F 97.6 F 98.6 F Pulse Rate 69 72 68 Respiratory Rate 12 18 18 Blood Pressure 121/75 164/77 H 163/93 H Pulse Oximetry 97 98 96 01/08/18 00:00 01/08/18 00:40 01/08/18 04:00 Temperature 98.6 F 98.3 F Pulse Rate 68 67 Respiratory Rate 18 18 18 Blood Pressure 163/93 H 144/72 H 170/96 H Pulse Oximetry 96 95 01/08/18 04:08 01/08/18 08:00 01/08/18 11:37 Temperature 97.7 F 97.7 F Pulse Rate 58 L 60 52 L Respiratory Rate 20 20 Blood Pressure 181/95 H 178/99 H Pulse Oximetry 96 99 Intake & Output 01/07/18 01/08/18 01/08/18 18:59 06:59 18:59 Intake Total 1441 / 1441 Balance 1441 / 1441 Weight 72.9 kg Intake: IV 981 / 981 NS Inj 1,000 ML @ 125 mls/hr IV 981 / 981 .CONT .Q8H [facility] Rx#:[id number] Oral 460 / 460 Other: # Voids 5 2 Date of Last Bowel Movement 01/07/18 # Bowel Movements 1 - Constitutional no acute distress - Routine HEENT Exam Head: Present: normocephalic ENT: Present: mucous membranes moist - Routine Neck Exam Present: supple. Absent: JVD - Routine Respiratory Exam Present: CTA bilaterally. Absent: rales, rhonchi - Routine Cardiovascular Exam Present: RRR, bradycardia - Routine Abdominal Exam Present: soft, normoactive bowel sounds - Routine Skin Exam Present: warm, wounds Comments: left ankle - Routine Neurological Exam Present: alert, oriented X3 <Francoise Mccollum - Last Filed: 01/08/18 14:04> Vital signs: Vital Signs 01/07/18 23:45 01/08/18 00:00 01/08/18 00:40 Temperature 98.6 F 98.6 F Pulse Rate 68 68 Respiratory Rate 18 18 18 Blood Pressure 163/93 H 163/93 H 144/72 H Pulse Oximetry 96 96 01/08/18 04:00 01/08/18 04:08 01/08/18 08:00 Temperature 98.3 F 97.7 F Pulse Rate 67 58 L 55 L Respiratory Rate 18 20 Blood Pressure 170/96 H 181/95 H Pulse Oximetry 95 96 01/08/18 11:37 Temperature 97.7 F Pulse Rate 52 L Respiratory Rate 20 Blood Pressure 178/99 H Pulse Oximetry 99 Intake & Output 01/08/18 01/08/18 01/09/18 06:59 18:59 06:59 Intake Total 1441 / 1441 Balance 1441 / 1441 Weight 72.9 kg Intake: IV 981 / 981 NS Inj 1,000 ML @ 125 mls/hr IV 981 / 981 .CONT .Q8H [facility] Rx#:[id number] Oral 460 / 460 Other: # Voids 2 <Satnam Marie - Last Filed: 01/08/18 21:40> Assessment and Plan - Assessment (1) Acute kidney injury Code(s): N17.9 - Acute kidney failure, unspecified Status: Resolved Plan: Acute kidney injury Acute kidney injury from poor intake, Nausea, vomiting, NSAID use, and urinary tract infection Creatinine has improved at 1.47 from 3.4 Patient has been discharged Instructed to avoid NSAID use and fluids encouraged. UTI On ciprofloxacin. (2) Urinary tract infection Code(s): N39.0 - Urinary tract infection, site not specified Status: Acute Qualifiers: Urinary tract infection type: acute cystitis Hematuria presence: with hematuria Qualified Code(s): N30.01 - Acute cystitis with hematuria <Francoise Mccollum - Last Filed: 01/08/18 14:04> - Assessment (1) Acute kidney injury Code(s): N17.9 - Acute kidney failure, unspecified Status: Resolved (2) Urinary tract infection Code(s): N39.0 - Urinary tract infection, site not specified Status: Acute Qualifiers: Urinary tract infection type: acute cystitis Hematuria presence: with hematuria Qualified Code(s): N30.01 - Acute cystitis with hematuria - Attending Attestation Patient seen and examined, agree with above. Creatinine is better, BP is elevated, on Atenolol, Lisinopril and Clonidine. Follow the BP and if remain elevated, to increase Clonidine. <Satnam Marie - Last Filed: 01/08/18 21:40>
[2018-01-08] MEDS ORDERED: hydrALAZINE 10 MG Tablet PO SCH (21:30)
[2018-01-09] MEDS: LORazepam 1 MG Tablet PO PRN ×3 (01:10→12:47)
[2018-01-09] MEDS ORDERED: amLODIPine 5 MG Tablet PO ONE (04:41)
[2018-01-09] MEDS: Heparin - SQ 10,000 UNITS/ML Vial SQ SCH (08:13)
[2018-01-09] MEDS: Lactobacillus Acidophilus/L. Spores Tablet PO SCH ×2 (08:13→12:46)
[2018-01-09] MEDS: Lisinopril 10 MG Tablet PO SCH (08:13)
[2018-01-09] MEDS: Folic Acid 1 MG Tablet PO SCH (08:13)
[2018-01-09] MEDS: Multivitamin/Minerals Therapeutic Tablet PO SCH (08:14)
[2018-01-09] MEDS: Atenolol 50 MG Tablet PO SCH (08:14)
--- NOTE | 2018-01-09 14:26 | P.PNNP ---
Subjective Interval history: Seen earlier in Day. Sitting on side of bed. No acute complaints. <AdelesammydariaFrancoise - Last Filed: 01/09/18 14:22> Physical Exam Vital signs: Vital Signs 01/08/18 20:00 01/08/18 20:22 01/09/18 00:00 Temperature 97.1 F L 97.9 F Pulse Rate 52 L 52 L 73 Respiratory Rate 16 18 Blood Pressure 185/105 H 198/98 H Pulse Oximetry 99 96 01/09/18 04:00 01/09/18 06:45 01/09/18 08:00 Temperature 97.9 F 98.6 F Pulse Rate 69 71 Respiratory Rate 18 19 Blood Pressure 195/104 H 185/99 H 191/99 H Pulse Oximetry 94 L 96 01/09/18 12:00 Temperature 98.1 F Pulse Rate 58 L Respiratory Rate 20 Blood Pressure 185/97 H Pulse Oximetry 98 Intake & Output 01/08/18 01/09/18 01/09/18 18:59 06:59 18:59 Intake Total 240 / 240 Balance 240 / 240 Intake: Oral 240 / 240 Other: Date of Last Bowel Movement 01/07/18 - Constitutional no acute distress - Routine HEENT Exam Head: Present: normocephalic - Routine Neck Exam Present: supple. Absent: JVD - Routine Respiratory Exam Present: decreased breath sounds. Absent: wheezes, crackles - Routine Cardiovascular Exam Present: RRR - Routine Abdominal Exam Present: soft, normoactive bowel sounds - Routine Skin Exam Present: dry, warm - Routine Neurological Exam Present: alert, oriented X3 - Routine Psychiatric Exam Present: cooperative <ChunFrancoise - Last Filed: 01/09/18 14:22> Vital signs: Vital Signs 01/09/18 00:00 01/09/18 04:00 01/09/18 06:45 Temperature 97.9 F 97.9 F Pulse Rate 73 69 Respiratory Rate 18 18 Blood Pressure 198/98 H 195/104 H 185/99 H Pulse Oximetry 96 94 L 01/09/18 08:00 01/09/18 12:00 01/09/18 14:53 Temperature 98.6 F 98.1 F Pulse Rate 71 58 L Respiratory Rate 19 20 Blood Pressure 191/99 H 185/97 H 151/84 H Pulse Oximetry 96 98 Intake & Output 01/09/18 01/09/18 01/10/18 06:59 18:59 06:59 Intake Total 240 / 240 Balance 240 / 240 Intake: Oral 240 / 240 Other: Date of Last Bowel Movement 01/07/18 <Satnam Marie - Last Filed: 01/09/18 22:02> Assessment and Plan - Assessment (1) Acute kidney injury Code(s): N17.9 - Acute kidney failure, unspecified Status: Resolved Plan: Acute kidney injury Acute kidney injury from poor intake, Nausea, vomiting, NSAID use, and urinary tract infection Creatinine has improved at 1.47 from 3.4 Patient has been discharged Instructed to avoid NSAID use and fluids encouraged. UTI On ciprofloxacin. Hypertensive Clonidine increased. (2) Urinary tract infection Code(s): N39.0 - Urinary tract infection, site not specified Status: Acute Qualifiers: Urinary tract infection type: acute cystitis Hematuria presence: with hematuria Qualified Code(s): N30.01 - Acute cystitis with hematuria <Francoise Mccollum - Last Filed: 01/09/18 14:22> - Assessment (1) Acute kidney injury Code(s): N17.9 - Acute kidney failure, unspecified Status: Resolved (2) Urinary tract infection Code(s): N39.0 - Urinary tract infection, site not specified Status: Acute Qualifiers: Urinary tract infection type: acute cystitis Hematuria presence: with hematuria Qualified Code(s): N30.01 - Acute cystitis with hematuria - Attending Attestation Patient has ELMO, Creatinine improve to 1.4, no new BMP. Now for discharge, to follow with PCP. <Satnam Marie - Last Filed: 01/09/18 22:02>
--- NOTE | 2018-01-09 14:56 | P.PN ---
Subjective Interval history: Follow-up acute renal injury/alcohol abuse January 07, 2018-patient seen and examined, denies any tremors, chest pain or shortness of breath. Creatinine improving. Patient is requesting if she can be given beer January 08, 2018-patient seen and examined, renal indices improved creatinine down to 1.47. No acute event overnight. BP slightly up. January 09, 2018-patient seen and examined; BP now stable and patient denies any SOB/CP. Physical Exam Vital signs: Vital Signs 01/08/18 20:00 01/08/18 20:22 01/09/18 00:00 Temperature 97.1 F L 97.9 F Pulse Rate 52 L 52 L 73 Respiratory Rate 16 18 Blood Pressure 185/105 H 198/98 H Pulse Oximetry 99 96 01/09/18 04:00 01/09/18 06:45 01/09/18 08:00 Temperature 97.9 F 98.6 F Pulse Rate 69 71 Respiratory Rate 18 19 Blood Pressure 195/104 H 185/99 H 191/99 H Pulse Oximetry 94 L 96 01/09/18 12:00 01/09/18 14:53 Temperature 98.1 F Pulse Rate 58 L Respiratory Rate 20 Blood Pressure 185/97 H 151/84 H Pulse Oximetry 98 Intake & Output 01/08/18 01/09/18 01/09/18 18:59 06:59 18:59 Intake Total 240 / 240 Balance 240 / 240 Intake: Oral 240 / 240 Other: Date of Last Bowel Movement 01/07/18 Narrative: GENERAL: NAD SKIN: Warm and dry. HEAD: Normocephalic. EYES: No scleral icterus. No injection or drainage. NECK: Supple, trachea midline. No JVD or lymphadenopathy. CARDIOVASCULAR: Regular rate and rhythm without murmurs, gallops, or rubs. RESPIRATORY: Breath sounds equal bilaterally. No accessory muscle use. GASTROINTESTINAL: Abdomen soft, non-tender, nondistended. MUSCULOSKELETAL: No cyanosis, or edema. BACK: Nontender without obvious deformity. No CVA tenderness. Results - Labs CBC & Chem 7: 01/07/18 07:50 01/08/18 05:59 Microbiology 01/06/18 16:00 Clean Catch Urine Urine Culture - Final Enterobacter aerogenes - Procedures None Assessment and Plan - Assessment (1) Alcohol abuse Code(s): F10.10 - Alcohol abuse, uncomplicated Status: Chronic (2) Acute kidney injury Code(s): N17.9 - Acute kidney failure, unspecified Status: Resolved (3) Urinary tract infection Code(s): N39.0 - Urinary tract infection, site not specified Status: Acute (4) Hypertension Code(s): I10 - Essential (primary) hypertension Status: Chronic - Plan 62-year-old female with 1. Acute renal failure Renal indices improved with IV fluid rate Avoid all nephrotoxic drug 2. Urinary tract infection-E. coli Discontinue Rocephin, start Ceftin p.o. on discharge 3. Alcohol abuse Thiamine [facility] protocol Monitor for signs of withdrawal Continue with Librium as needed 4. Hypertension/hyperlipidemia Continue home medications, including lisinopril and atenolol. Clonidine was added Clonidine as needed (3) Urinary tract infection Qualifiers: Urinary tract infection type: acute cystitis Hematuria presence: with hematuria Qualified Code(s): N30.01 - Acute cystitis with hematuria
[2018-01-09] MEDS ORDERED: Ciprofloxacin 250 MG Tablet PO SCH (21:00)
== END 2018-01-09 16:05 | disposition home or self-care (01) ==
LOC: NEPD 14:45 → NEDA 17:59 → N06 19:03
PROVIDERS: ADMIT Hospitalist; ATTEND Hospitalist

== ENCOUNTER 2018-01-22 16:00 | Inpatient (IN) ==
[2018-01-22] MEDS ORDERED: MethylPREDNISolone Sod Succinate Inj 125 MG/2 ML Vial IV.PUSH ONE (16:35)
--- NOTE | 2018-01-22 16:40 | ED ---
HPI General Chief complaint: Respiratory Symptoms Stated complaint: SOB SINCE 5AM Time Seen by Provider: 01/22/18 16:25 Source: patient Mode of arrival: ambulatory Limitations: no limitations History of Present Illness HPI narrative: 62yo F with PMH of COPD, alcohol abuse, HTN, arthritis presents to the ED with c/o sob since 5am today. Said she has been feeling hot and cold but no actual fever. Pt said she cannot afford inhalers and does not use any. +Nausea and vomiting water. Denies any chest pain, abdominal pain, focal weakness or numbness. Pt was seen here for left chronic wound 01/17/18 and was given bactroban and bactrim and she said she has been taking it. She was also admitted for ELMO, UTI 01/06/18 and is worry about her kidneys. She drinks daily and had alcohol today. Related Data Home Medications Medication Instructions Recorded Confirmed atenolol 50 mg PO DAILY 01/06/18 01/22/18 lisinopril 10 mg PO DAILY 01/06/18 01/22/18 lovastatin 20 mg PO DAILY 01/06/18 01/22/18 tizanidine [Zanaflex] 2 mg PO HS PRN 01/06/18 01/22/18 Previous Rx's Medication Instructions Recorded ciprofloxacin HCl [Cipro] 250 mg PO Q12H #10 tab 01/08/18 thiamine HCl (vitamin B1) 100 mg PO DAILY #30 tab 01/08/18 clonidine HCl [Catapres] 0.2 mg PO Q12HR #20 tab 01/09/18 mupirocin calcium [Bactroban] 1 applic TOPICAL BID 10 Days #30 g 01/17/18 sulfamethoxazole-trimethoprim 1 tab PO BID 7 Days #14 tab 01/17/18 [Bactrim DS] Allergies Allergy/AdvReac Type Severity Reaction Status Date / Time No Known Allergies Allergy Verified 01/22/18 16:42 Review of Systems ROS Unobtainable All other systems reviewed negative except as stated in HPI PMFSH Surgical History Surgical History Hx of tonsillectomy (Acute) Social History Social History Substance History: No History of Abuse Second Hand Smoke Exposure: No Smoking Status: Current every day smoker Tobacco Type: Cigarettes How Often Do You Have a Drink Containing Alcohol: 4 or more times a week Hx Recent Travel: No Recent Travel in [facility] within the Last 8 Weeks: No Recent Out of Country Travel within the Last 8 Weeks: No Exam Narrative Exam Narrative: GENERAL: 62yo F in moderate distress. SKIN: Focused skin assessment warm/dry. HEAD: Atraumatic. Normocephalic. EYES: Pupils equal and round. No scleral icterus. No injection or drainage. ENT: No nasal bleeding or discharge. Mucous membranes pink and moist. NECK: Trachea midline. No JVD. CARDIOVASCULAR: Regular rate and rhythm. No murmur appreciated. RESPIRATORY: + accessory muscle use. Expiratory wheezing bilateral lower lungs. O2 sat 85% on RA. GASTROINTESTINAL: Abdomen soft, non-tender, nondistended. Hepatic and splenic margins not palpable. MUSCULOSKELETAL: No obvious deformities. No clubbing. No cyanosis. +Bilateral lower extremity edema. NEUROLOGICAL: Awake and alert. No obvious cranial nerve deficits. Motor grossly within normal limits. Normal speech. PSYCHIATRIC: Appropriate mood and affect; insight and judgment normal. Procedures Ultrasound POC Ultrasound Procedure: Ultrasound-guided IV 20 gauge IV inserted in left AC with ultrasound guide. Course Initial Documented Vital Signs Temperature 97.3 F L 01/22/18 16:13 Pulse Rate 103 H 01/22/18 16:13 Respiratory Rate 22 01/22/18 16:13 Blood Pressure 180/113 H 01/22/18 16:13 Pulse Oximetry 95 01/22/18 16:13 Last Documented Vital Signs Temperature 97.6 F 01/22/18 19:21 Pulse Rate 116 H 01/22/18 22:00 Respiratory Rate 18 01/22/18 22:00 Blood Pressure 155/99 H 01/22/18 22:00 Pulse Oximetry 95 01/22/18 22:00 Critical Care Time Critical Care Time: Yes Total Critical Care Time: 50 Attestation: Aggregate critical care time was 50 minutes. Time to perform other separately billable procedures was not included in the critical care time. My time did not include minutes spent treating any other patients simultaneously or on activities that did not directly contribute to the patient's treatment. The services I provided to this patient were to treat and/or prevent clinically significant deterioration that could result in: cardiovascular collapse or . I provided critical care services requiring my management, as noted below: Chart data review, documentation time, medication orders and management, vital sign assessments/reviewing monitor data, ordering and reviewing lab tests, ordering and interpreting/reviewing x-rays and diagnostic studies, care of the patient and discussion of the patient with the admitting physicians. Medical Decision Making MDM Narrative Medical decision making narrative: 62yo F with c/o sob that started this morning. Pt is hypoxic at 85% on RA. Has history of COPD and wheezing on exam. Pt given duonebs and methylprednisolone. Pt placed on 2L NC and saturating in the low 90s. Pt said she does not have any medications for her COPD. Labs reviewed, no leukocytosis. H/H normal. Mild hyperkalemia at 5.3. CO2 low at 17.5. Pt is hyperventilating. EKG showed deep T wave inversions. The T wave inversions were not in the EKG 01/07. Said it had resolved on the EKG reading. Unable to view EKG prior to 01/07. Pt denies any chest pain. Troponin is elevated at 0.71. Feel that this may be from hypoxemia. Pt denies any bleeding or blood in stool, started on heparin drip. Creatinine 1.10 this time. Pt was difficult to obtain IV access so I placed an ultrasound guided 20gauge in left AC. Pt now states she drinks all the time and is feeling anxious and requesting ativan so 1mg of ativan given. Pt now complains of left sided abdominal pain that is new while she is here in the ED. Discussed with school nurse Dr. Cid who recommends CTA to r/o PE first. I also agree and will CT her chest and abdomen/pelvis since she now has pain. CTA chest showed no PE. Mild bilateral pleural effusions worst in the right. Suspected atelectasis or consolidation right lung base. CT a/p showed no acute intra- abdominal abnormality. Pt transferred to [facility] in stable conditions. Differential Diagnosis Differential Diagnosis: COPD exacerbation vs. pneumonia vs. CHF Lab Data Result diagrams: 01/22/18 17:40 01/22/18 17:40 Lab Results 01/22/18 01/22/18 01/22/18 Range/Units 17:40 17:40 17:40 CBC w Diff Slide review pending WBC 9.3 (4.0-11.0) th/mm3 RBC 4.17 (4.00-5.30) mil/mm3 Hgb 15.1 (11.6-15.3) gm/dL Hct 42.2 (35.0-46.0) % MCV 101.1 H (80.0-100.0) fL MCH 36.2 H (27.0-34.0) pg MCHC 35.8 (32.0-36.0) % RDW 14.0 (11.6-17.2) % Plt Count 238 D (150-450) th/mm3 MPV 10.0 (7.0-11.0) fL Neut % (Auto) 85.4 H (16.0-70.0) % Lymph % (Auto) 10.0 (9.0-44.0) % [place] % (Auto) 2.6 (0.0-8.0) % Eos % (Auto) 0.1 (0.0-4.0) % Baso % (Auto) 1.9 (0.0-2.0) % Neut # (Auto) 8.0 H (1.8-7.7) th/mm3 Lymph # (Auto) 0.9 L (1.0-4.8) th/mm3 [place] # (Auto) 0.2 (0.0-0.9) th/mm3 Eos # (Auto) 0.0 (0.0-0.4) th/mm3 Baso # (Auto) 0.2 (0.0-0.2) th/mm3 WBC Differential . Diff Scan Auto diff confirmed Differential Comment . PT (9.8-11.6) sec INR Ratio APTT (24.3-30.1) sec Sodium 136 (136-145) meq/L Potassium 5.3 H (3.5-5.1) meq/L Chloride 108 H (98-107) meq/L Carbon Dioxide 17.5 L (21.0-32.0) meq/L Anion Gap 11 (5-15) meq/L BUN 8 (7-18) mg/dL Creatinine 1.10 H (0.50-1.00) mg/dL Estimated GFR 50 L (>89) mL/min Random Glucose 100 (74-106) mg/dL Calcium 8.9 (8.5-10.1) mg/dL Magnesium (1.5-2.5) mg/dL Total Bilirubin 1.0 (0.2-1.0) mg/dL AST 65 H (15-37) U/L ALT 38 (10-53) U/L Alkaline Phosphatase 174 H (45-117) U/L Troponin I 0.71 H* (0.02-0.05) ng/mL B-Natriuretic Peptide 1673 H (0-100) pg/mL Total Protein 8.1 (6.4-8.2) g/dL Albumin 3.6 (3.4-5.0) g/dL 01/22/18 01/22/18 Range/Units 17:40 19:38 CBC w Diff WBC (4.0-11.0) th/mm3 RBC (4.00-5.30) mil/mm3 Hgb (11.6-15.3) gm/dL Hct (35.0-46.0) % MCV (80.0-100.0) fL MCH (27.0-34.0) pg MCHC (32.0-36.0) % RDW (11.6-17.2) % Plt Count (150-450) th/mm3 MPV (7.0-11.0) fL Neut % (Auto) (16.0-70.0) % Lymph % (Auto) (9.0-44.0) % [place] % (Auto) (0.0-8.0) % Eos % (Auto) (0.0-4.0) % Baso % (Auto) (0.0-2.0) % Neut # (Auto) (1.8-7.7) th/mm3 Lymph # (Auto) (1.0-4.8) th/mm3 [place] # (Auto) (0.0-0.9) th/mm3 Eos # (Auto) (0.0-0.4) th/mm3 Baso # (Auto) (0.0-0.2) th/mm3 WBC Differential Diff Scan Differential Comment PT 12.6 H (9.8-11.6) sec INR 1.2 Ratio APTT 85.3 H (24.3-30.1) sec Sodium (136-145) meq/L Potassium (3.5-5.1) meq/L Chloride (98-107) meq/L Carbon Dioxide (21.0-32.0) meq/L Anion Gap (5-15) meq/L BUN (7-18) mg/dL Creatinine (0.50-1.00) mg/dL Estimated GFR (>89) mL/min Random Glucose (74-106) mg/dL Calcium (8.5-10.1) mg/dL Magnesium 1.8 (1.5-2.5) mg/dL Total Bilirubin (0.2-1.0) mg/dL AST (15-37) U/L ALT (10-53) U/L Alkaline Phosphatase (45-117) U/L Troponin I (0.02-0.05) ng/mL B-Natriuretic Peptide (0-100) pg/mL Total Protein (6.4-8.2) g/dL Albumin (3.4-5.0) g/dL Imaging Data Radiologist's impression: Chest X-Ray 01/22/18 16:35 CONCLUSION: New small right pleural effusion Chest CTA 01/22/18 19:41 CONCLUSION: 1. No pulmonary embolus. 2. Mild bilateral pleural effusions being worse in the right. There is some adjacent suspected atelectasis or consolidation at the right lung base. Abdomen/Pelvis CT 01/22/18 19:42 CONCLUSION: 1. No acute intra-abdominal abnormality. 2. Mild bilateral pleural effusions with some accompanying atelectasis or consolidation at the right lung base. 3. Mild hepatic steatosis. 4. Atherosclerotic calcifications. 5. Midline umbilical hernia containing mesenteric fat. 6. Degenerative change in the lower lumbar spine. ECG Data EKG Prior to Arrival: No Attestation: I personally reviewed and interpreted this ECG as follows: Prior ECG tracings: available for review Interpretation: NSR 97bpm. Normal axis. TWI diffusely. No significant ST elevation. Discharge Plan Discharge Disposition Patient Disposition: 30 Still Patient Physicians Team ED Provider: Brandee Resendez Primary Care Provider: Primary Care Eve Fowler Attending Provider: Adelia Luna Other Providers: Suman Cid Discharge Interventions Interventions: Vital Signs Last Done: 01/22/18 22:00 Status ED Status: Admitted Patient
--- NOTE | 2018-01-22 16:49 | XR ---
EXAM DATE: 01/22/2018 4:47 PM EDT AGE/SEX: 62 years / Female INDICATIONS: Shortness of breath. CLINICAL DATA: This is the patient's initial encounter. Patient reports that signs and symptoms have been present for 1 day and indicates a pain score of 0/10. MEDICAL/SURGICAL HISTORY: Chronic obstructive pulmonary disease. None. [place] [facility] [place]. . FINDINGS: Slight diffuse interstitial prominence. Small right effusion. Cardiac contours are stable and grossly satisfactory. CONCLUSION: New small right pleural effusion Electronically signed by: Raj Aguilera MD 01/22/2018 4:48 PM EDT
[2018-01-22 17:53] LABS: Baso # (Auto) 0.2 th/mm3 (0.0-0.2); Baso % (Auto) 1.9 % (0.0-2.0); Eos % (Auto) 0.1 % (0.0-4.0); Hematocrit 42.2 % (35.0-46.0); Hemoglobin 15.1 gm/dL (11.6-15.3); Lymph # (Auto) 0.9 th/mm3 (1.0-4.8); Mean Corpuscular HGB Conc 35.8 % (32.0-36.0); Mean Corpuscular Hemoglobin 36.2 pg (27.0-34.0); Mean Corpuscular Volume 101.1 fL (80.0-100.0); Mono # (Auto) 0.2 th/mm3 (0.0-0.9); Mono % (Auto) 2.6 % (0.0-8.0); Neut % (Auto) 85.4 % (16.0-70.0); Platelet Count 238 th/mm3 (150-450); Red Blood Count 4.17 mil/mm3 (4.00-5.30); White Blood Count 9.3 th/mm3 (4.0-11.0)
[2018-01-22 18:03] LABS: Chloride 108 meq/L (98-107); Sodium 136 meq/L (136-145)
[2018-01-22 18:06] LABS: Calcium 8.9 mg/dL (8.5-10.1)
[2018-01-22 18:07] LABS: Albumin 3.6 g/dL (3.4-5.0); Anion Gap 11 meq/L (5-15); Blood Urea Nitrogen 8 mg/dL (7-18); Carbon Dioxide 17.5 meq/L (21.0-32.0); Glucose,Random 100 mg/dL (74-106)
[2018-01-22 18:09] LABS: Potassium 5.3 meq/L (3.5-5.1)
[2018-01-22 18:10] LABS: Alanine Aminotransferase 38 U/L (10-53); Aspartate Aminotransferase 65 U/L (15-37); Glomerular Filtration Rate 50 mL/min (>89)
[2018-01-22 18:11] LABS: Total Protein 8.1 g/dL (6.4-8.2)
[2018-01-22 18:13] LABS: Alkaline Phosphatase 174 U/L (45-117)
[2018-01-22 18:32] LABS: Troponin I 0.71 ng/mL (0.02-0.05)
[2018-01-22] MEDS ORDERED: Heparin 10,000 UNITS/10 ML Vial (for IV use) IV.PUSH STA (18:57)
[2018-01-22] MEDS ORDERED: Heparin Drip 25,000 UNIT/250 ML BAG IV.CONT PRN (18:57)
[2018-01-22] MEDS ORDERED: Acetaminophen 500 MG Tablet PO PRN (19:21)
[2018-01-22 20:01] LABS: Activated Partial Thrombo Time 85.3 sec (24.3-30.1); INR 1.2 Ratio; Prothrombin Time 12.6 sec (9.8-11.6)
--- NOTE | 2018-01-22 21:06 | CT ---
EXAM DATE: 01/22/2018 8:51 PM EDT AGE/SEX: 62 years / Female INDICATIONS: Chest pain. Shortness of breath. Evaluate for embolism. CLINICAL DATA: This is the patient's initial encounter. Patient reports that signs and symptoms have been present for 2 days and indicates a pain score of 5/10. MEDICAL/SURGICAL HISTORY: Hypertension. None. RADIATION DOSE: 19.72 CTDI (mGy) COMPARISON: No prior exams available for comparison. TECHNIQUE: Volumetric scanning was performed using a multi-row detector CT scanner during bolus infu mine of 100 ml Omnipaque 350 (iohexol) nonionic water-soluble contrast as a cumulative dose for mult iple exams. The data was post processed with a variety of visualization algorithms including full vol ume maximum intensity projection and sliding thin slab reformation. Using automated exposure control and adjustment of the mA and/or kV according to patient size, radiation dose was kept as low as reaso nably achievable to obtain optimal diagnostic quality images. DICOM format image data is available e lectronically for review and comparison. FINDINGS: Pulmonary Arteries: No filling defects are seen in the pulmonary arteries out to the subsegmental ve ssels. The left and right pulmonary arteries are normal in diameter. Lung: There is mild increased density at the posterior right lung base. Effusion: Mild bilateral pleural effusions being greater on the right. Mediastinum: No evidence of mediastinal or hilar adenopathy. Other: The axilla is unremarkable. There appears to be thickening of the distal esophagus. CONCLUSION: 1. No pulmonary embolus. 2. Mild bilateral pleural effusions being worse in the right. There is some adjacent suspected atele ctasis or consolidation at the right lung base. Electronically signed by: Raj Ruiz MD 01/22/2018 9:05 PM EDT
--- NOTE | 2018-01-22 21:10 | CT ---
EXAM DATE: 01/22/2018 8:55 PM EDT AGE/SEX: 62 years / Female INDICATIONS: Abdominal pain. CLINICAL DATA: This is the patient's initial encounter. Patient reports that signs and symptoms have been present for 2 days and indicates a pain score of 5/10. MEDICAL/SURGICAL HISTORY: Hypertension. None. ORAL CONTRAST: No oral contrast ingested. RADIATION DOSE: 11.54 CTDI (mGy) [place] [facility] [place] ABDOMEN & PELVIS W/O CONTRAST, 01/06/2018. . TECHNIQUE: Multiple contiguous axial images were obtained through the abdomen and pelvis following b olus infusion of 100 ml Omnipaque 350 (iohexol) nonionic water-soluble contrast as a cumulative dos e for multiple exams. No oral contrast ingested. Using automated exposure control and adjustment of the mA and/or kV according to patient size, radiation dose was kept as low as reasonably achievable t o obtain optimal diagnostic quality images. DICOM format image data is available electronically for review and comparison. FINDINGS: Lower Lungs: There are mild bilateral pleural effusions being worse on the right with some accompanyi ng atelectasis or consolidation at the right lung base. Liver: There is mild decreased attenuation to the liver. No focal hepatic lesions are seen. Spleen: Homogeneous density without enlargement. Pancreas: Unremarkable without mass or calcification. Kidneys: Normal in size and shape. No evidence of mass or hydronephrosis. Adrenal Glands: Unremarkable. Aorta: The aorta and proximal iliac vessels are grossly unremarkable without aneurysmal dilation. T here are scattered atherosclerotic calcifications seen. Bowel/Mesentery: The bowel loops are grossly unremarkable. The cecum and sigmoid colon have a normal configuration. Abdominal Wall: There is midline umbilical hernia containing mesenteric fat. Retroperitoneum: No evidence of adenopathy in the retrocrural, para-aortic, or deep pelvic regions. Bladder: Contours are smooth. Reproductive Organs: The patient is status post hysterectomy. Inguinal: The inguinal region is unremarkable without evidence of adenopathy. Bony Structures: There is degenerative change in the lower lumbar spine. CONCLUSION: 1. No acute intra-abdominal abnormality. 2. Mild bilateral pleural effusions with some accompanying atelectasis or consolidation at the right lung base. 3. Mild hepatic steatosis. 4. Atherosclerotic calcifications. 5. Midline umbilical hernia containing mesenteric fat. 6. Degenerative change in the lower lumbar spine. Electronically signed by: Raj Ruiz MD 01/22/2018 9:09 PM EDT
--- NOTE | 2018-01-22 23:22 | P.HPIM ---
History of Present Illness Primary Care Physician: No Primary Care Physician History of Present Illness: 62 y/o female with a history of alcohol abuse, htn, hld, and copd presented to the ed with complaints of chest pressure and sob. Patient states yesterday morning she woke up at 5 am with increasing sob and chest pressure. She states the chest pressure was intermittent with no radiation or nausea/vomiting. She states her dyspnea was at rest and with exertion. Upon examination patient was very anxious and states she just wants to get some rest and is requesting sleeping medication. She states she is an alcoholic and gets tremors if she doesn't drink. Inpatient Certification: I certify that the inpatient services were ordered in accordance with Medicare regulations governing the order. This includes certification that hospital inpatient services are reasonable and necessary and in the case of services not specified as inpatient-only under 42 CFR 419.22(n), that they are appropriately provided as inpatient services in accordance to with the 2-midnight benchmark under 43 CFR 412.3(e) Estimated Total Length of Stay (Days): 2 Plans for Post Hospital Care: Not yet determined Review of Systems All other systems reviewed negative except as stated in HPI [facility] - History History Provided By: Patient - Medical History Medical History: Medical History (Last Reviewed 01/22/18 @ 16:42 by Charlene Kang RN) Alcohol abuse (Acute) HLD (hyperlipidemia) (Acute) HTN (hypertension) (Acute) - Surgical History Surgical History: Surgical History (Last Updated 01/23/18 @ 00:40 by PEPPER Evans) Hx of tonsillectomy (Acute) H/O: hysterectomy (Acute) - Family History Family History: Family History (Last Reviewed 01/22/18 @ 16:42 by Charlene Kang RN) Other Colon cancer - Tobacco History Second Hand Smoke Exposure: Yes Tobacco Use In Past 30 Days: Yes Smoking Status: Current every day smoker Tobacco Type: Cigarettes - Alcohol History How Often Do You Have a Drink Containing Alcohol: 4 or more times a week - Substance Use History Substance History: No History of Abuse - Travel History History of Recent Travel: No Recent Travel in the [place] Within the Last 8 Weeks: No Recent Travel Out of the Country Within the Last 8 Weeks: No - Immunization History Tetanus Immunization: >5 Years Hx Influenza Vaccine This Season: No Medications and Allergies Active Medications: Active Medications Acetaminophen (Tylenol) 500 mg PO Q4H PRN PRN Reason: HEADACHE Aspirin (Aspirin) 325 mg PO DAILY [facility] Heparin Sodium/Dextrose (Heparin/D5w 25,000 U/250 Ml) 25,000 unit in 250 mls @ 0 mls/hr IV.CONT TITRATE PRN; Protocol PRN Reason: Per Protocol Last Admin: 01/22/18 21:37 Dose: 800 units/hr, 8 mls/hr Sodium Chloride (Ns Flush) 2 ml IV.FLUSH BID [facility] Last Admin: 01/22/18 22:10 Dose: 2 ml Sodium Chloride (Ns Flush) 2 ml IV.FLUSH PRN PRN PRN Reason: FLUSH AFTER USING IV ACCESS Allergies Allergy/AdvReac Type Severity Reaction Status Date / Time No Known Allergies Allergy Verified 01/22/18 16:42 Home Medications Medication Instructions Recorded Confirmed Type atenolol 50 mg PO DAILY 01/06/18 01/22/18 History lisinopril 10 mg PO DAILY 01/06/18 01/22/18 History lovastatin 20 mg PO DAILY 01/06/18 01/22/18 History tizanidine [Zanaflex] 2 mg PO HS PRN 01/06/18 01/22/18 History Exam Vital signs: Vital Signs 01/22/18 16:13 01/22/18 16:15 01/22/18 16:35 Temperature 97.3 F L Pulse Rate 103 H 98 H 98 H Respiratory Rate 22 22 Blood Pressure 180/113 H 177/117 H Pulse Oximetry 95 94 L 94 L 01/22/18 17:10 01/22/18 17:23 01/22/18 18:19 Temperature Pulse Rate 104 H 100 H 105 H Respiratory Rate 20 22 22 Blood Pressure 161/110 H Pulse Oximetry 92 L 01/22/18 19:21 01/22/18 20:00 01/22/18 22:00 Temperature 97.6 F Pulse Rate 112 H 116 H Respiratory Rate 22 18 Blood Pressure 155/114 H 155/99 H Pulse Oximetry 92 L 95 01/22/18 22:52 Temperature 95.8 F L Pulse Rate 113 H Respiratory Rate 22 Blood Pressure 183/126 H Pulse Oximetry 95 Intake & Output 01/22/18 01/22/18 01/23/18 06:59 18:59 06:59 Weight 63.5 kg Narrative: GENERAL: This is a well-nourished, well-developed patient, who is very anxious Skin: Healing lesion to left inner ankle, no drainage EYES: PERRLA, no drainage CARDIOVASCULAR: Regular rate and rhythm without murmurs, gallops, or rubs. RESPIRATORY: Clear to auscultation. Breath sounds equal bilaterally. No wheezes , rales, or rhonchi. On 2L GASTROINTESTINAL: Abdomen soft, non-tender, distended is her norm. Normal active bowel sounds MUSCULOSKELETAL: Extremities without clubbing, cyanosis, or edema. NEURO: Alert & Oriented x4 to person, place, time, situation. Moves all ext x4 Results - Labs CBC & Chem 7: 01/22/18 17:40 01/22/18 17:40 Labs: Short CBC 01/22/18 Range/Units 17:40 WBC 9.3 (4.0-11.0) th/mm3 Hgb 15.1 (11.6-15.3) gm/dL Hct 42.2 (35.0-46.0) % Plt Count 238 D (150-450) th/mm3 BMP 01/22/18 17:40 Sodium 136 Potassium 5.3 H Chloride 108 H Carbon Dioxide 17.5 L BUN 8 Creatinine 1.10 H Calcium 8.9 Cardiac Enzymes 01/22/18 Range/Units 17:40 Troponin I 0.71 H* (0.02-0.05) ng/mL Liver Function 01/22/18 Range/Units 17:40 Total Bilirubin 1.0 (0.2-1.0) mg/dL AST 65 H (15-37) U/L ALT 38 (10-53) U/L Alkaline Phosphatase 174 H (45-117) U/L Albumin 3.6 (3.4-5.0) g/dL - Imaging Impressions Chest X-Ray 01/22/18 16:35 CONCLUSION: New small right pleural effusion Chest CTA 01/22/18 19:41 CONCLUSION: 1. No pulmonary embolus. 2. Mild bilateral pleural effusions being worse in the right. There is some adjacent suspected atelectasis or consolidation at the right lung base. Abdomen/Pelvis CT 01/22/18 19:42 CONCLUSION: 1. No acute intra-abdominal abnormality. 2. Mild bilateral pleural effusions with some accompanying atelectasis or consolidation at the right lung base. 3. Mild hepatic steatosis. 4. Atherosclerotic calcifications. 5. Midline umbilical hernia containing mesenteric fat. 6. Degenerative change in the lower lumbar spine. Caprini VTE Risk Assessment Caprini VTE Risk Assessment: Moderate/High Risk (score >= 2) Caprini Risk Assessment Model: Point Value = 1 Point Value = 2 Point Value = 3 Point Value = 5 Age 41-60 Minor surgery BMI > 25 kg/m2 Swollen legs Varicose veins or History of unexplained or recurrent spontaneous Oral contraceptives or hormone replacement Sepsis (< 1 month) Serious lung disease, including pneumonia (< 1 month) Abnormal pulmonary function Acute myocardial infarction Congestive heart failure (< 1 month) History of inflammatory bowel disease Medical patient at bed rest Age 61-74 Arthroscopic surgery Major open surgery (> 45 min) Laparoscopic surgery (> 45 min) Malignancy Confined to bed (> 72 hours) Immobilizing plaster cast Central venous access Age >= 75 History of VTE Family history of VTE Factor V Leiden Prothrombin [id number] Lupus anticoagulant Anticardiolipin antibodies Elevated serum homocysteine Heparin-induced thrombocytopenia Other congenital or acquired thrombophilia Stroke (< 1 month) Elective arthroplasty Hip, pelvis, or leg fracture Acute spinal cord injury (< 1 month) Prophylaxis Regimen: Total Risk Factor Score Risk Level Prophylaxis Regimen 0-1 Low Early ambulation 2 Moderate Order ONE of the following: *Sequential Compression Device (SCD) *Heparin 5000 units SQ BID 3-4 Higher Order ONE of the following medications: *Heparin 5000 units SQ TID *Enoxaparin/Lovenox 40 mg SQ daily (WT < 150 kg, CrCl > 30 mL/min) *Enoxaparin/Lovenox 30 mg SQ daily (WT < 150 kg, CrCl > 10-29 mL/min) *Enoxaparin/Lovenox 30 mg SQ BID (WT < 150 kg, CrCl > 30 mL/min) AND/OR *Sequential Compression Device (SCD) 5 or more Highest Order ONE of the following medications: *Heparin 5000 units SQ TID (Preferred with Epidurals) *Enoxaparin/Lovenox 40 mg SQ daily (WT < 150 kg, CrCl > 30 mL/min) *Enoxaparin/Lovenox 30 mg SQ daily (WT < 150 kg, CrCl > 10-29 mL/min) *Enoxaparin/Lovenox 30 mg SQ BID (WT < 150 kg, CrCl > 30 mL/min) AND *Sequential Compression Device (SCD) Assessment and Plan - Plan 62 y/o female with a history of alcohol abuse, htn, hld, and copd presented to the ed with complaints of chest pressure and sob. NSTEMI Troponin .71, EKG reviewed and shows SR with no ST elevation -Serial troponin and ekgs -Consult cardiology for evaluation -Heparin drip ordered -NPO -Nitropaste ordered New onset Chf in exacerbation, bnp [id number], patient denies a history Chest xray shows a small right pleural effusion -2d echo ordered -Lasix given in ED x 1 HTN, currently elevated -Resume home medications, monitor vitals Chronic leg ulcer, seen in ED on 01/17 -Continue Bactrim BID 3 more days -Bacitracin ointment daily Alcohol abuse -CIWA protocol -Withdrawal precautions DVT prophylaxis: Heparin Discussed Condition With: Patient and RN H&P: Quality - VTE Deep Vein Thrombosis/Pulmonary Embolism Present on Admission: No
[2018-01-23] MEDS ORDERED: Haloperidol Inj 5 MG/ML Ampul IV.PUSH PRN (00:12)
[2018-01-23] MEDS ORDERED: Morphine Inj 4 MG/ML Vial IV.PUSH PRN (00:18)
[2018-01-23 00:47] LABS: Troponin I 0.7 ng/mL (0.02-0.05)
[2018-01-23 06:10] LABS: Baso % (Auto) 0.3 % (0.0-2.0); Hematocrit 41.5 % (35.0-46.0); Hemoglobin 14.5 gm/dL (11.6-15.3); Lymph # (Auto) 0.3 th/mm3 (1.0-4.8); Lymph % (Auto) 6.4 % (9.0-44.0); Mean Corpuscular Hemoglobin 35.3 pg (27.0-34.0); Mean Corpuscular Volume 100.9 fL (80.0-100.0); Mean Platelet Volume 10.4 fL (7.0-11.0); Mono # (Auto) 0.1 th/mm3 (0.0-0.9); Mono % (Auto) 1.5 % (0.0-8.0); Neut # (Auto) 4.2 th/mm3 (1.8-7.7); Neut % (Auto) 91.8 % (16.0-70.0); Platelet Count 216 th/mm3 (150-450); Red Blood Count 4.11 mil/mm3 (4.00-5.30); White Blood Count 4.6 th/mm3 (4.0-11.0)
[2018-01-23 06:32] LABS: Calcium 9.3 mg/dL (8.5-10.1); Carbon Dioxide 22.9 meq/L (21.0-32.0)
[2018-01-23 06:47] LABS: Troponin I 0.7 ng/mL (0.02-0.05)
[2018-01-23] MEDS ORDERED: hydrALAZINE 10 MG Tablet PO PRN (08:58)
[2018-01-23] MEDS ORDERED: Atenolol 50 MG Tablet PO SCH (09:00)
[2018-01-23] MEDS ORDERED: Labetalol HCl Inj 100 MG/20 ML Vial IV.PUSH PRN (09:00)
[2018-01-23] MEDS ORDERED: Aspirin 325 MG Tablet PO SCH (09:00)
[2018-01-23] MEDS: LORazepam 1 MG Tablet PO PRN ×3 (09:37→23:41)
[2018-01-23] MEDS: Lisinopril 10 MG Tablet PO SCH (09:37)
[2018-01-23] MEDS ORDERED: Heparin/NS PF Inj 1,500 ML ONE (09:42)
[2018-01-23] MEDS ORDERED: Heparin 10,000 UNITS/10 ML Vial (for IV use) ONE (09:44)
--- NOTE | 2018-01-23 09:52 | ECG ---
Date Performed: 01/23/2018 Time Performed: 05:26:44 PTAGE: 62 years EKG: Sinus rhythm Extensive ST-T changes may be due to myocardial infarct/Ischemia, severe neurological deficit, or pa cemaker T wave memory. Abnormal ECG PREVIOUS TRACING : 01/22/2018 23.44 DOCTOR: Sherwin Jackson Interpretating Date/Time 01/23/2018 09:51:50
[2018-01-23] MEDS ORDERED: fentaNYL Citrate Inj 100 MCG/2 ML Ampul ONE (10:00)
--- NOTE | 2018-01-23 10:04 | ECG ---
Date Performed: 01/22/2018 Time Performed: 23:44:50 PTAGE: 62 years EKG: Sinus tachycardia Consider left atrial abnormality Possible septal infarct - age undetermin ed Inferior/lateral ST-T changes may be due to myocardial ischemia Low QRS voltages in limb leads Abn ormal ECG PREVIOUS TRACING : 01/22/2018 16.47 DOCTOR: Sherwin Jackson Interpretating Date/Time 01/23/2018 10:03:15
--- NOTE | 2018-01-23 10:59 | ECG ---
Date Performed: 01/22/2018 Time Performed: 16:47:27 PTAGE: 62 years EKG: Sinus rhythm POSSIBLE LEFT ATRIAL ENLARGEMENT MODERATE T-WAVE ABNORMALITY, CONSIDER ANTEROLATERAL ISCHEMIA MODERA TE T-WAVE ABNORMALITY, CONSIDER INFERIOR ISCHEMIA ABNORMAL ECG PREVIOUS TRACING : 01/07/2018 10.18 DOCTOR: Sherwin Jackson Interpretating Date/Time 01/23/2018 10:57:46
[2018-01-23] MEDS ORDERED: Misc Info for Pharmacy OTHER STA (11:11)
--- NOTE | 2018-01-23 11:13 | CATHPROC ---
mobintent HIS Report Study Information Study Number Admission Scheduled Start Study Start [id number] Jan 22 2018 7:29PM 01/23/2018 Jan 23 2018 9:43AM Study Type [place] Service Left/Possible PCI Cardiac Catheterization Admit Source Facility Department Other [facility] Physician and Clinical Staff Initial Suman Goldsmith Principal Technical Specialist Tom Brito RN Principal Technical Specialist Yovany MIRANDA, Riccardo Recorder Estela Bennett,CATTLE CARE WORKER TECH2 Scrub Jael Coyle,COMPLIANCE TESTING ANALYST TECH2 X-Ray Greta Parsons,RT(R) Procedures Performed Procedure Location (Site) Vessel Name Coronary Angiograms LCA Left Coronary Coronary Angiograms RCA Right Coronary PTCA DIAG Prox Left Coronary Stent DIAG Prox Left Coronary Wire insertion Radial (right) Radial Art. Equipment Time Spindle Maker Description Size Mfg Part Number Used/Scraped WIRE, BALANCE MIDDLEWEIGHT [id number] 10:34 [employer] 190CM Used 190CM *[id number] TRANSDUCER, TRUWAVE [id number] 09:45 GALVAN JAUREGUI * Used W/STOCKCOCK *[id number] [id number] *[id number] 534-521T *[id number] 09:45 Apprity BLANKET,WARM AIR CCL * Used *[id number] 09:45 Apprity PACK, CCL CUSTOM * Used *[id number] 09:45 Apprity SUPPORT, ARTERIAL ADULT 32069 *[id number] Used BALLOON, 2.5 X 8MM NC [id number] 10:48 MEDTRONIC 8MM Used EUPHORA *[id number] 10:44 [employer]IC STENT, 2.5 12 INTEGRITY 2.5 12 Used *[id number] 10:35 [employer]TR[employer]IC/AVE EBU 3.5 Z2 GUIDE CATHETER FR 6 Used *[id number] 10:47 [employer] 30 CAROL INDEFLATOR Used *[id number] BAND, RADIAL COMPRESSION TR [id number] 10:55 [employer]eg[employer] MEDICAL 24CM Used SHORT 24 *[id number] 09:45 [employer] WIRE, EXCHANGE 260CM 3MMJ 260CM Used *[id number] 09:45 NAMIC MANIFOLD, 4 PORT * Used *[id number] 09:45 NYCOMED OMNIPAQUE, 350 MG, 150ML 150ML [id number] Used SHEATH, FR6 TRANSRADIAL [id number] 09:45 [email or web address] FR 6 Used SLENDER 10CM *[id number] Equipment Model, Serial, Lot Number and Expiration Data Description Model Number Serial Number Lot Number Expiration Date BAND, RADIAL COMPRESSION TR [id number] 10-30-2020 24 History: Current Medications Medication Dosage/Unit Route Frequency Last Date/Time Taken Beta Bennett LISINOPRIL Statins (any) History: Allergies Allergy Reaction No Known Allergies none History: Risk Factors Family History of Hypertension Dyslipidemia Previous MS Previous Heart Failure Premature CAD Yes Yes No No No Prior Valve Prior PCI Prior CABG Surgery No No No Cerebrovascular Peripheral Artery Chronic Lung On Dialysis Diabetes Disease Disease Disease No No No Yes No History: Symptoms/Diagnosis Selection Items Chest pain SOB History: Stress Tests Stress or Imaging Studies Performed No History: Other Current Smoker Method Packs a Day Years Used Pack Years Yes Cigarettes 1 42 42 Labs Hgb (g/dl) Hct (%) WBC (l/cumm) Platelets (thousands) 11.60-17.00 35.00-51.00 4.00-11.00 150.00-450.00 14.5 41.5 4.6 216 Glucose (mg/dl) BUN (mg/dl) Creatinine (mg/dl) BUN:Creatinine (1:x) 74.00-106.00 7.00-18.00 0.50-1.30 10.00-20.00 149 12 1.2 10 Na (meq/l) K (meq/l) 136.00-145.00 3.50-5.10 138 4 INR (PTT:PT) 0.90-1.10 1.2 Troponin I (ng/ml) CPK (u/l) CPK-MB (ng/ML) 0.02-0.05 26.00-308.00 0.50-3.60 0.7 136 Not Drawn Medication Medication Total Dose (Bolus/Oral) Medication Total Dosage/Unit 1% XYLOCAINE 5 mL FENTANYL 25 mcg HEPARIN 3700 units PLAVIX 600 mg RADIAL COCKTAIL 5 mL (Bolus) VERSED 0.5 mg ZOFRAN 4 mg Medications (Bolus/Oral) Medication Time Given Dosage/Unit Administered By Reason VERSED 01/23/2018 10:22:00 AM 0.5 mg Tom Brito 0.5 mg VERSED given in lab by Tom Brito RN in Left Antecubital via Peripheral IV. Ordered by Suman Eng 1% XYLOCAINE 01/23/2018 10:22:41 AM 5 mL Suman Cid 5 mL 1% XYLOCAINE given in lab by Suman Cid in Right Radial via Subcutaneous. Ordered by Suman Bradford FENTANYL 01/23/2018 10:23:14 AM 25 mcg Tom Brito 25 mcg FENTANYL given in lab by Tom Brito RN in Left Antecubital via Peripheral IV. Ordered by Suman Bradford Ntg 200mcg Verapamil 2.5mg Heparin RADIAL COCKTAIL 01/23/2018 10:26:03 AM 5 mL (Bolus) Suman Cid 2500U 5 mL (Bolus) RADIAL COCKTAIL given in lab by Suman Cid in Right Radial via Radial. Using [S olution Name]. Ordered by Suman Cid Reason: Ntg 200mcg Verapamil 2.5mg Heparin 2500U. HEPARIN 01/23/2018 10:34:42 AM 3700 units Alisha, Tom 3700 units HEPARIN given in lab by Tom Brito RN in Left Antecubital via Peripheral IV. Ordered by Suman Cid PLAVIX 01/23/2018 10:56:24 AM 600 mg Alisha, Tom 600 mg PLAVIX given in lab by Tom Brito RN via Oral. Ordered by Suman Cid ZOFRAN 01/23/2018 11:02:52 AM 4 mg Alisha, Tom 4 mg ZOFRAN given in lab by Tom Brito RN in Left Antecubital via Peripheral IV. Ordered by Suman Baldwin Medication (Drip) Medication Time Given Dosage/Unit Concentration/Unit Diluent (ml) Solution IV Solutions 01/23/2018 10:00:16 AM 0 mL (IV) 500 NaCl .9 Patient arrived on IV Solutions in Left Antecubital via Peripheral IV. Pump/Drip Flow = 20 ml/hr usin g NaCl .9. Initial Case Assessment Cardiovascular HR Rhythm NIBP Chest Pain 101 sr 171/131 0 Circulatory - Right Pulses Dorsalis Pedis Femoral Radial 2 2 2 Scale (0,1,2,3,4,d) Circulatory - Left Pulses Dorsalis Pedis Femoral Radial 2 2 Scale (0,1,2,3,4,d) Neurological State Oriented to time-place- Alert Moves all extremities person Respiration - General Respiration Rate SpO2 (%) (B/min) 23 97 Final Case Assessment Cardiovascular HR Rhythm NIBP Chest Pain 86 sr 149/103 0 Circulatory - Right Pulses Dorsalis Pedis Femoral Radial 2 2 2 Scale (0,1,2,3,4,d) Circulatory - Left Pulses Dorsalis Pedis Femoral Radial 2 2 Scale (0,1,2,3,4,d) Neurological State Oriented to time-place- Alert Moves all extremities person Respiration - General Respiration Rate SpO2 (%) (B/min) 16 94 Chronological Log Time Study Chronological Log 9:53:11 Patient arrived via Bed. Heparin drip discontinued at 09:45. 9:53:17 Patient Name, D.O.B, / Armband Verified By R.N. 9:54:53 Consent signed by the physician and the patient and verified by the [facility] staff. 9:54:54 Pre-op and post- op instructions given; patient acknowledges understanding of instructions. 9:54:54 Verbal Stimulation=2 Physical Stimulation=2 Airway=2 Respiration=2 TOTAL=8. (0=absent, 1=knight ited, 2=present) Vitals capture started with the following parameters, Patient=Adult, Interval=5 min, Initial Pr oukrwv=606 mmHg, 9:57:40 Deflation Rate=5 mmHg, Cuff placed on Left Arm 9:58:54 JL=785 bpm, DFQW=342/125 mmhg, SpO2=96.0 % 9:59:58 Presedation assessment performed by [facility] RN. 10:00:00 Allens test performed on the right radial and ulnar artery. 10:00:02 Patient has been NPO for More than 6Hrs. 10:00:03 Skin Breakdown-scab noted on left inner calf. 10:00:04 Wanda Prominences Protected 10:00:05 A # 20 IV was noted in the Antecubital (left). Grade = 0 10:00:16 Patient arrived on IV Solutions in Left Antecubital via Peripheral IV. Pump/Drip Flow = 20 ml/hr using NaCl .9. 10:01:01 History and physical on the chart or being dictated. Assessment: Initial Case, PF=243 BPM, Rhythm=sr, MKNU=558/131 mmhg, Chest Pain=0 Right Pulses: Rafy Ped=2, Femoral=2, Radial=2 10:01:03 Left Pulses: Rafy Ped=2, Femoral=2 Neurological: State=Alert, Ox3, LAW Respiration: Resp=23 B/min, SpO2=97 % 10:02:10 Reference ECG taken 10:03:18 ZX=569 bpm, SBIM=662/117 mmhg, SpO2=95.0 %, Resp=18 B/min 10:08:10 Right radial and Bilateral groins prepped with 2% chlorhexidine, and draped after a 3 minut e waiting time. 10:08:15 HR=98 bpm, ZGOZ=127/131 mmhg, SpO2=95.0 %, Resp=22 B/min 10:12:25 Pressure channel 1 zeroed. 10:13:15 MD paged 10:13:18 HR=98 bpm, ZAAE=282/123 mmhg, SpO2=95.0 %, Resp=44 B/min 10:18:17 HR=96 bpm, MLHF=150/115 mmhg, SpO2=95.0 %, Resp=15 B/min 10:19:47 MD arrived. Time Out. Correct patient, correct procedure, correct physician, labs, allergies, and equipment verified with produce laborer 10:21:50 team present. Fire risk assesment completed (see hard stop sheet for coding). Time Out Conc urred by MD and individual staff in procedure. 10:22:00 0.5 mg VERSED given in lab by Tom Brito RN in Left Antecubital via Peripheral IV. Order ed by Suman Cid 10:22:41 Case Start 5 mL 1% XYLOCAINE given in lab by Suman Cid in Right Radial via Subcutaneous. Ordered by Jose Roberto 10::41 Suman Smart 10:23:14 HR=96 bpm, LHAH=268/112 mmhg, SpO2=93.0 %, Resp=18 B/min 25 mcg FENTANYL given in lab by Tom Brito RN in Left Antecubital via Peripheral IV. Ordered by Suman Cid 10:23:14 G. 10:23:32 Access site was Right Radial Artery . A SHEATH, FR6 TRANSRADIAL SLENDER 10CM FR 6 was advanced into the Radial (right) using the Perc utaneous 10:24:44 technique. 5 mL (Bolus) RADIAL COCKTAIL given in lab by Suman Cid in Right Radial via Radial. Us ing [Solution Name]. 10:26:03 Ordered by Suman Cid. Reason: Ntg 200mcg Verapamil 2.5mg Heparin 2500U. A JL 3.5 INFINITI CATHETER FR 5 was advanced over a wire. OMNIPAQUE, 350 MG, 150ML 150ML was us ed for 10:26:28 injections. Recorded Pressure: LV, WO=282, Condition=Condition 1 10:26:54 (Left Ventricle) LV 151/9/23 Recorded Pressure: LV, Ao, VG=226, Condition=Condition 1 10:27:04 (Left Ventricle) LV 144/19/15, (Aorta) Ao 134/93/114 10:27:58 The RCA was injected and visualized at various angles. OMNIPAQUE, 350 MG, 150ML 150ML used . 10:28:17 HR=96 bpm, XQBZ=109/93 mmhg, SpO2=93 %, Resp=21 B/min After removing the current catheter a JL 3.5 INFINITI CATHETER FR 5 was advanced over a WIRE, E XCHANGE 260CM 10:29:08 3MMJ 260CM. 10:30:54 The LCA was injected and visualized at various angles. OMNIPAQUE, 350 MG, 150ML 150ML used . 10:33:10 HR=90 bpm, KJEX=326/101 mmhg, SpO2=92 %, Resp=13 B/min 3700 units HEPARIN given in lab by Tom Brito, RUTH in Left Antecubital via Peripheral IV. Orde red by Suman Cid 10:34:42 G. After removing the current catheter a EBU 3.5 Z2 GUIDE CATHETER FR 6 was advanced over a WIRE, EXCHANGE 10:35:46 260CM 3MMJ 260CM. 10:38:09 HR=91 bpm, KTGH=682/106 mmhg, SpO2=92.0 %, Resp=25 B/min 10:40:02 The LCA was injected and visualized at various angles. OMNIPAQUE, 350 MG, 150ML 150ML used . 10:40:24 A WIRE, BALANCE MIDDLEWEIGHT 190CM 190CM was inserted via Radial (right). 10:41:18 Activated Clotting Time Drawn An STENT, 2.5 12 INTEGRITY 2.5 12 Bare Metal Stent was inserted through a EBU 3.5 Z2 GUIDE CATH ETER FR 6 over 10:43:08 a WIRE, BALANCE MIDDLEWEIGHT 190CM 190CM. 10:43:15 HR=92 bpm, EMXF=438/100 mmhg, SpO2=92.0 %, Resp=25 B/min A STENT, 2.5 12 INTEGRITY 2.5 12 was deployed using a 30 CAROL INDEFLATOR at 10 atmospheres for 3 0 seconds in 10:46:43 the DIAG Prox. 10:47:38 Delivery device removed 10:48:00 ACT (Normal Range 90-180) = 334 10:48:12 HR=88 bpm, BVXQ=639/101 mmhg, SpO2=92 %, Resp=25 B/min A BALLOON, 2.5 X 8MM NC EUPHORA 8MM was inserted over WIRE, BALANCE MIDDLEWEIGHT 190CM 190CM vi a the 10:48:45 DIAG Prox. A BALLOON, 2.5 X 8MM NC EUPHORA 8MM over a WIRE, BALANCE MIDDLEWEIGHT 190CM 190CM in the DIAG P mehce 10:50:06 was inflated using a 30 CAROL INDEFLATOR at 18 carol for 18 sec. A BALLOON, 2.5 X 8MM NC EUPHORA 8MM over a WIRE, BALANCE MIDDLEWEIGHT 190CM 190CM in the DIAG P meche 10:50:35 was inflated using a 30 CAROL INDEFLATOR at 18 carol for 18 sec. 10:50:53 Balloon Removed. 10:52:28 Wire removed 10:52:36 A WIRE, EXCHANGE 260CM 3MMJ 260CM was inserted via Radial (right). 10:52:40 Guide Catheter was removed over wire 10:53:15 HR=84 bpm, SXSJ=584/102 mmhg, SpO2=96.0 %, Resp=17 B/min 10:53:36 Case End (Physician broke scrub) Radial Compression Device Used. 12 mLs of air placed in BAND, RADIAL COMPRESSION TR SHORT 24 24 CM. Affected 10:55:56 hand ~O2 SATURATION~ % O2 saturation. 10:56:24 600 mg PLAVIX given in lab by Tom Brito RN via Oral. Ordered by Suman Cid 10:57:24 No case complications noted. 10:57:25 Cine recording checked. 10:57:27 Bedside Report will be given. Assessment: Final Case, HR=86 BPM, Rhythm=sr, UYZX=475/103 mmhg, Chest Pain=0 Right Pulses: Rafy Ped=2, Femoral=2, Radial=2 10:58:05 Left Pulses: Rafy Ped=2, Femoral=2 Neurological: State=Alert, Ox3, LAW Respiration: Resp=16 B/min, SpO2=94 % 10:58:16 HR=88 bpm, KIEZ=992/103 mmhg, SpO2=93.0 %, Resp=13 B/min 11:02:36 Pt c/o nausea. 11:02:52 4 mg ZOFRAN given in lab by Tom Brito, RN in Left Antecubital via Peripheral IV. Ordere d by Suman Cid 11:03:17 NIBP STAT measurement started. 11:03:18 Vitals capture stopped. 11:03:29 Patient moved to bed 11:05:13 Patient transported to [facility] End Study - Contrast Media Used In Study Contrast Total Opened (mL) Total Used (mL) Total Wasted (mL) Omnipaque 90 90 0 End Study - Maximum Contrast Load Max Contrast Load (mL) 253.8 End Study - Radiation Exposure Fluoro Time Fluoro Dose (mGy) Cine Dose (uGym2) (minutes) 4.4 412 2248 End Study - Sheaths Sheaths Pulled By Sheath Hold Time (min) Jael Coyle End Study - Patient Disposition Complications Transferred To Interventional Outcome No Telemetry Bed successful
[2018-01-23] MEDS ORDERED: Iohexol 350 MG/ML 100 ML Vial (for Cath Lab) IVCONTRAST ONE (14:57)
--- NOTE | 2018-01-23 19:05 | P.PN ---
Physical Exam Vital signs: Vital Signs 01/22/18 19:21 01/22/18 20:00 01/22/18 22:00 Temperature 97.6 F Pulse Rate 112 H 116 H Respiratory Rate 22 18 Blood Pressure 155/114 H 155/99 H Pulse Oximetry 92 L 95 01/22/18 22:52 01/22/18 23:00 01/23/18 00:00 Temperature 95.8 F L Pulse Rate 113 H 109 H 116 H Respiratory Rate 22 Blood Pressure 183/126 H Pulse Oximetry 95 01/23/18 01:00 01/23/18 02:00 01/23/18 03:00 Temperature Pulse Rate 126 H 116 H 115 H Respiratory Rate Blood Pressure Pulse Oximetry 01/23/18 04:00 01/23/18 05:00 01/23/18 06:00 Temperature 96.7 F L Pulse Rate 90 86 89 Respiratory Rate 20 Blood Pressure 129/87 Pulse Oximetry 93 L 01/23/18 08:00 01/23/18 09:00 01/23/18 11:00 Temperature Pulse Rate 92 H 112 H 85 Respiratory Rate Blood Pressure Pulse Oximetry 97 01/23/18 12:00 01/23/18 13:00 01/23/18 14:00 Temperature 98.6 F Pulse Rate 86 76 69 Respiratory Rate 18 Blood Pressure 125/86 Pulse Oximetry 97 01/23/18 15:00 01/23/18 15:53 01/23/18 17:00 Temperature 98.1 F Pulse Rate 73 73 67 Respiratory Rate 16 Blood Pressure 112/77 Pulse Oximetry 73 L 01/23/18 18:00 Temperature Pulse Rate 77 Respiratory Rate Blood Pressure Pulse Oximetry Intake & Output 01/22/18 01/23/18 01/23/18 18:59 06:59 18:59 Intake Total 120 / 120 1000 / 1000 Output Total 450 / 450 Balance -330 / -330 1000 / 1000 Weight 63.5 kg 61 kg Intake: Oral 120 / 120 1000 / 1000 Output: Urine 450 / 450 Other: # Voids 2 Date of Last Bowel Movement 01/22/18 Narrative: Subjective: Patient appears anxious. Says she smoke 1 ppd, on CIWA protocol. no chest pain at this time. No fever or chills, co cough. No n/v/d/c. Physical exam: GENERAL: This is a well-nourished, well-developed patient, who is very anxious Skin: Healing lesion to left inner ankle, no drainage EYES: PERRLA, no drainage CARDIOVASCULAR: Regular rate and rhythm without murmurs, gallops, or rubs. RESPIRATORY: Clear to auscultation. Breath sounds equal bilaterally. No wheezes , rales, or rhonchi. On 2L GASTROINTESTINAL: Abdomen soft, non-tender, distended is her norm. Normal active bowel sounds MUSCULOSKELETAL: Extremities without clubbing, cyanosis, or edema. NEURO: Alert & Oriented x4 to person, place, time, situation. Moves all ext x4 Assessment and Plan 62 y/o female with a history of alcohol abuse, htn, hld, and copd presented to the ed with complaints of chest pressure and sob. NSTEMI Troponin .71, on admission repeat serial not trending down. EKG reviewed and shows SR with no ST elevation -Consult cardiology for evaluation -Heparin drip ordered -NPO -Nitropaste -Plan for cardiac cath New onset Chf in exacerbation, bnp 1673, on admission patient denies a history Chest xray shows a small right pleural effusion -2d echo ordered -Lasix given in ED x 1 HTN, currently elevated -Resume home medications, monitor vitals Chronic leg ulcer, seen in ED on 01/17 -Continue Bactrim BID 3 more days -Bacitracin ointment daily Tobaccoism Alcohol abuse -WA protocol -Withdrawal precautions - counselled DVT prophylaxis: Heparin Discussed Condition With: Patient, nurse DC plan: Pending improvement Cardiac cath 01/23 Results - Labs CBC & Chem 7: 01/23/18 04:27 01/23/18 04:27 Laboratory Results - last 24 hr 01/22/18 01/22/18 01/23/18 19:38 23:57 04:27 WBC 4.6 D RBC 4.11 Hgb 14.5 Hct 41.5 MCV 100.9 H MCH 35.3 H MCHC 35.0 RDW 14.0 Plt Count 216 MPV 10.4 Neut % (Auto) 91.8 H Lymph % (Auto) 6.4 L Lassen % (Auto) 1.5 Eos % (Auto) 0.0 Baso % (Auto) 0.3 Neut # (Auto) 4.2 Lymph # (Auto) 0.3 L Lassen # (Auto) 0.1 Eos # (Auto) 0.0 Baso # (Auto) 0.0 WBC Differential . Differential Comment Auto diff final PT 12.6 H INR 1.2 APTT 85.3 H Sodium Potassium Chloride Carbon Dioxide Anion Gap BUN Creatinine Estimated GFR Random Glucose Calcium Total Creatine Kinase 125 Troponin I 0.70 H* 01/23/18 01/23/18 01/23/18 04:27 04:27 12:06 WBC RBC Hgb Hct MCV MCH MCHC RDW Plt Count MPV Neut % (Auto) Lymph % (Auto) Lassen % (Auto) Eos % (Auto) Baso % (Auto) Neut # (Auto) Lymph # (Auto) Lassen # (Auto) Eos # (Auto) Baso # (Auto) WBC Differential Differential Comment PT INR APTT 41.5 H D 135.4 H* D Sodium 138 Potassium 4.0 D Chloride 104 Carbon Dioxide 22.9 Anion Gap 11 BUN 12 Creatinine 1.19 H Estimated GFR 46 L Random Glucose 149 H Calcium 9.3 Total Creatine Kinase 136 Troponin I 0.70 H* - Imaging Impressions Chest CTA 01/22/18 19:41 CONCLUSION: 1. No pulmonary embolus. 2. Mild bilateral pleural effusions being worse in the right. There is some adjacent suspected atelectasis or consolidation at the right lung base. Abdomen/Pelvis CT 01/22/18 19:42 CONCLUSION: 1. No acute intra-abdominal abnormality. 2. Mild bilateral pleural effusions with some accompanying atelectasis or consolidation at the right lung base. 3. Mild hepatic steatosis. 4. Atherosclerotic calcifications. 5. Midline umbilical hernia containing mesenteric fat. 6. Degenerative change in the lower lumbar spine.
--- NOTE | 2018-01-23 21:23 | MB ---
cc: Suman Cid DO DATE: 01/23/2018 REASON FOR CONSULTATION: NSTEMI. HISTORY OF PRESENT ILLNESS: Niru Hernandez is a pleasant 62-year-old female who presented to [facility] Emergency Room due to chest pain and shortness of breath. She states she woke up at around 5:00 a.m. and was getting increasingly short of breath while lying in bed. She started noticing chest pressure at that time. Chest pressure has been on and off, with no radiation to any certain areas and no nausea or vomiting. She started noticing that her shortness of breath was also increased with exertion and so she presented to [facility] Emergency Room. She was found to have an elevated troponin and transferred from [place] to [facility]. In seeing her, she is currently hemodynamically stable, without chest pain or shortness of breath. PAST MEDICAL HISTORY: 1. Alcohol abuse. 2. Hyperlipidemia. 3. Hypertension. PAST SURGICAL HISTORY: 1. Tonsillectomy. 2. Hysterectomy. ALLERGIES: NO KNOWN DRUG ALLERGIES. MEDICATIONS: 1. Lisinopril 10 mg daily. 2. Atenolol 50 mg daily. 3. Zanaflex 2 mg every night as needed. 4. Lovastatin 20 mg daily. 5. Thiamine 100 mg daily. 6. Cipro 250 mg every 12 hours. 7. Clonidine 0.2 mg every 12 hours. 8. Bactrim 800/160 b.i.d. FAMILY HISTORY: Denies premature coronary artery disease or sudden cardiac within the family. SOCIAL HISTORY: The patient smokes about a pack of cigarettes a day. She drinks daily and takes about 4 days to finish a handle of vodka. Denies substance abuse. REVIEW OF SYSTEMS: Fourteen systems were reviewed including osteopathic. Pertinent positives and negatives above, otherwise negative. PHYSICAL EXAMINATION: VITAL SIGNS: Temperature 96.7, heart rate 90, blood pressure 129/87, respirations 20, pulse oximetry 93% on 2 liters oxygen. GENERAL: The patient appears well, in no acute distress. Alert, awake and oriented x 3. HEENT: Extraocular muscles intact. Mucous membranes moist. NECK: Supple. No JVD at 45 degrees. No carotid bruits heard bilaterally. Carotid upstroke is brisk in nature. HEART: Regular rate and rhythm. Positive first and second heart sounds were noted. No murmurs, gallops or rubs. LUNGS: Clear to auscultation bilaterally. No wheezes, rales or rhonchi. ABDOMEN: Soft, nontender, nondistended. No organomegaly noted. EXTREMITIES: Show no clubbing, cyanosis or edema. Femoral and distal pulses intact bilaterally. NEUROLOGIC: No focal deficits. SKIN: Warm, dry and intact. OSTEOPATHIC: No kyphoscoliosis, lordosis or paraspinal tender points. LABORATORY DATA: Hemoglobin 14.5, hematocrit 41.5, platelets 216. Potassium 4.0, BUN 12, creatinine 1.19. Troponin 0.70. BNP 1673. Electrocardiogram (01/23/2018 at 0526), sinus rhythm, extensive ST-T wave changes, inferior and anterolaterally may be due to myocardial infarction/ischemia. IMPRESSIONS: 1. Non-ST elevation myocardial infarction. 2. Chest pain and shortness of breath concerning for coronary insufficiency. 3. Congestive heart failure of unknown systolic versus diastolic. 4. Hypertension. 5. Alcohol abuse. 6. Tobacco abuse. RECOMMENDATIONS: 1. Ms. Hernandez presented with chest pain and shortness of breath and was found to have an elevated troponin, as well as her abnormal EKG. We will plan on cardiac catheterization. 2. Risks, benefits, and alternatives have been explained to her and she consents to such. 3. We will check a 2-D echo to look at her overall left ventricular function, cardiac structure and possible valvulopathies. 4. Further recommendations will be made after coronary visualization. 5. I spoke to her for greater than 3 minutes about tobacco cessation. Thank you for allowing me to see Niru Hernandez. If there are any questions, please do not hesitate to call. DO JOSEPH Nuñez/DONAL , 09:03 PM , 09:21 PM
--- NOTE | 2018-01-23 21:32 | MA ---
cc: Suman Cid DO DATE: 01/23/2018 DATE OF PROCEDURE: 01/23/2018. PROCEDURE: Left heart catheterization, coronary angiogram, moderate sedation 30 minutes, Integrity bare metal stent (2.5 x 12) to the diagonal. PREPROCEDURE DIAGNOSIS: Chest pain and shortness of breath concerning for coronary insufficiency, non-ST elevation myocardial infarction. POSTOPERATIVE DIAGNOSIS: Non-ST elevation myocardial infarction, status post Integrity bare metal stent (2.5 x 12) to the diagonal, shortness of breath, acute decompensated heart failure of unknown type. MEDICATIONS: Versed 0.5 mg, fentanyl 25 mcg, heparin 6100 units, nitroglycerine 200 mcg, verapamil 2.5 mg, Zofran 4 mg, Plavix 600 mg. CONTRAST USED: 90 mL FLUOROSCOPY: 4.4 minutes. MODERATE SEDATION: 30 minutes. FRAILTY SCORE: 4. ESTIMATED BLOOD LOSS: 10 mL PROCEDURAL SUMMARY: Niru Hernandez is a pleasant 62-year-old female who presented to [facility] due to chest pain and shortness of breath. She was found to have an elevated troponin and because of this, she was recommended cardiac catheterization. Risks, benefits and alternatives were explained to her and she consented to such. She was brought to the lab and prepped in the usual sterile fashion. The right radial artery was accessed using a modified Seldinger technique and placement of a 5/6-Bengali slender sheath. This is easily aspirated and flushed. A JR4 was advanced over a J-wire to the ascending aorta and across the aortic valve for measurement of left ventricular pressure. This was pulled back across the aortic valve, showing no significant gradient of aortic stenosis. JR4 was used for selective angiography of the right coronary artery system. This is exchanged out for a JL3.5, which was used for selective angiography of the left coronary artery system. Please see notes below for intervention. FINDINGS: LEFT MAIN: Normal-sized vessel, with adequate reflux. It bifurcates into an LAD and circumflex. LEFT ANTERIOR DESCENDING: Normal sized vessel, with mild luminal irregularities. It gives off one diagonal which has a 80% lesion in the mid portion. LEFT CIRCUMFLEX: Normal sized vessel, which gives off 2 obtuse marginals, which are overall tortuous, with no significant disease. RIGHT CORONARY ARTERY: Normal sized vessel, with no disease. It gives off a PDA as well as a posterolateral branch, with no significant disease. LEFT VENTRICULAR END-DIASTOLIC PRESSURE: 15. INTERVENTION: Because of Ms. Hernandez presenting with chest pain, as well as shortness of breath and found to have an elevated troponin, I felt an intervention on her diagonal was appropriate. An EBU 3.5 guide was engaged in the left main. The patient was given heparin as an anticoagulant. A BMW wire was advanced into the distal diagonal. An Integrity bare-metal stent (2.5 x 12) was placed over the lesion and inflated. This was then postdilated with a noncompliant balloon (2.5 x 8). Final angiogram shows a well-opposed stent with no perforations or dissections. The wire and guide were removed. Radial band was placed over the arteriotomy site for hemostasis. The patient was given 600 mg of Plavix. She left the cath lab radiology technician cardiovascularly stable. IMPRESSION: 1. Chest pain/shortness of breath, concerning for coronary insufficiency. 2. Tse-MA-oebznrzly myocardial infarction. 3. Coronary artery disease, status post Integrity bare metal stent (2.5 x 12) to the diagonal. 4. Tobacco abuse. 5. Alcohol abuse. RECOMMENDATIONS: 1. Ms. Hernandez underwent PCI and will be recommended aspirin and Plavix therapy. 2. She will continue on statin, beta heather and AURY inhibitor therapy. 3. We will check a 2D echo to look at her overall left ventricular function, cardiac structure and possible valvulopathies, as she does present in decompensated heart failure, although looks relatively compensated at this time. 4. 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 5. I spoke to her for greater than 3 minutes about tobacco cessation. 6. Further recommendations will be made based on the hospital course. Thank you for allowing me to see Niru Hernandez. If there are any questions, please do no hesitate to call. DO JOSEPH Nuñez/DONAL , 09:09 PM , 09:30 PM
[2018-01-24] MEDS: Metoprolol Tartrate 25 MG Tablet PO SCH ×2 (00:22→09:13)
[2018-01-24 07:00] LABS: Baso % (Auto) 0.4 % (0.0-2.0); Eos % (Auto) 0.2 % (0.0-4.0); Hematocrit 40.4 % (35.0-46.0); Hemoglobin 14.1 gm/dL (11.6-15.3); Lymph # (Auto) 2.1 th/mm3 (1.0-4.8); Lymph % (Auto) 20.6 % (9.0-44.0); Mean Corpuscular HGB Conc 34.8 % (32.0-36.0); Mean Corpuscular Hemoglobin 35.2 pg (27.0-34.0); Mean Corpuscular Volume 101.2 fL (80.0-100.0); Mono # (Auto) 0.4 th/mm3 (0.0-0.9); Mono % (Auto) 4.1 % (0.0-8.0); Neut # (Auto) 7.5 th/mm3 (1.8-7.7); Neut % (Auto) 74.7 % (16.0-70.0); Platelet Count 165 th/mm3 (150-450); Red Cell Distribution Width 14.7 % (11.6-17.2)
[2018-01-24 07:24] LABS: Calcium 8.8 mg/dL (8.5-10.1); Carbon Dioxide 23.8 meq/L (21.0-32.0); Potassium 3.7 meq/L (3.5-5.1)
[2018-01-24 08:36] VITALS: RESP 16
[2018-01-24] MEDS: LORazepam 1 MG Tablet PO PRN ×2 (09:14→14:15)
[2018-01-24] MEDS: Lisinopril 10 MG Tablet PO SCH (09:15)
--- NOTE | 2018-01-24 11:39 | P.PNCA ---
Subjective Interval history: No events overnight Feels overall well Physical Exam Vital signs: Vital Signs 01/23/18 12:00 01/23/18 13:00 01/23/18 14:00 Temperature 98.6 F Pulse Rate 86 76 69 Respiratory Rate 18 Blood Pressure 125/86 Pulse Oximetry 97 01/23/18 15:00 01/23/18 15:53 01/23/18 17:00 Temperature 98.1 F Pulse Rate 73 73 67 Respiratory Rate 16 Blood Pressure 112/77 Pulse Oximetry 73 L 01/23/18 18:00 01/23/18 19:00 01/23/18 20:00 Temperature 98.1 F Pulse Rate 77 68 71 Respiratory Rate 18 Blood Pressure 92/58 L Pulse Oximetry 94 L 01/23/18 21:00 01/23/18 22:00 01/23/18 23:00 Temperature Pulse Rate 68 68 68 Respiratory Rate Blood Pressure Pulse Oximetry 01/24/18 00:00 01/24/18 01:00 01/24/18 02:00 Temperature 98.5 F Pulse Rate 68 64 62 Respiratory Rate 18 Blood Pressure 111/47 L Pulse Oximetry 93 L 01/24/18 03:00 01/24/18 04:00 01/24/18 05:00 Temperature 98.7 F Pulse Rate 59 L 61 62 Respiratory Rate 18 Blood Pressure 95/50 L Pulse Oximetry 93 L 01/24/18 06:00 01/24/18 07:00 01/24/18 08:00 Temperature 97.9 F Pulse Rate 80 59 L 72 Respiratory Rate 16 Blood Pressure 116/77 Pulse Oximetry 96 Intake & Output 01/23/18 01/24/18 01/24/18 18:59 06:59 18:59 Intake Total 1000 / 1000 240 / 240 Output Total 150 / 150 Balance 1000 / 1000 90 / 90 Weight 61.5 kg Intake: Oral 1000 / 1000 240 / 240 Output: Urine 150 / 150 Other: # Voids 2 Date of Last Bowel Movement 01/22/18 01/22/18 Narrative: GENERAL: NAD, AAOx3 SKIN: Warm and dry. HEAD: Atraumatic. Normocephalic. EYES: Pupils equal and round. No scleral icterus. No injection or drainage. ENT: No nasal bleeding or discharge. Mucous membranes pink and moist. NECK: Trachea midline. No JVD. CARDIOVASCULAR: Regular rate and rhythm. RESPIRATORY: No accessory muscle use. Clear to auscultation. Breath sounds equal bilaterally. GASTROINTESTINAL: Abdomen soft, non-tender, nondistended. Hepatic and splenic margins not palpable. MUSCULOSKELETAL: Extremities without clubbing, cyanosis, or edema. No obvious deformities. Right radial no hematoma, neurovascularly intact distally NEUROLOGICAL: Awake and alert. No obvious cranial nerve deficits. Motor grossly within normal limits. Five out of 5 muscle strength in the arms and legs. Normal speech. PSYCHIATRIC: Appropriate mood and affect; insight and judgment normal. Assessment and Plan - Assessment (1) NSTEMI (non-ST elevated myocardial infarction) Code(s): I21.4 - Non-ST elevation (NSTEMI) myocardial infarction Status: Acute (2) CAD (coronary artery disease) Code(s): I25.10 - Atherosclerotic heart disease of false pass coronary artery without angina pectoris Status: Acute (3) Alcohol abuse Code(s): F10.10 - Alcohol abuse, uncomplicated Status: Acute (4) HLD (hyperlipidemia) Code(s): E78.5 - Hyperlipidemia, unspecified Status: Acute (5) HTN (hypertension) Code(s): I10 - Essential (primary) hypertension Status: Acute - Plan 1) NSTEMI/CAD s/p BMS to Diagonal ASA/Plavix/BB/Statin/AURY-I Ultimately Plavix for 1 year at least, but needs at least 6-8 weeks 2) Case management to help with medications Discussed with patient, overall meds are less than what she spends on alcohol 3) 2D echo pending 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
--- NOTE | 2018-01-24 14:25 | P.PN ---
Physical Exam Vital signs: Vital Signs 01/23/18 15:00 01/23/18 15:53 01/23/18 17:00 Temperature 98.1 F Pulse Rate 73 73 67 Respiratory Rate 16 Blood Pressure 112/77 Pulse Oximetry 73 L 01/23/18 18:00 01/23/18 19:00 01/23/18 20:00 Temperature 98.1 F Pulse Rate 77 68 71 Respiratory Rate 18 Blood Pressure 92/58 L Pulse Oximetry 94 L 01/23/18 21:00 01/23/18 22:00 01/23/18 23:00 Temperature Pulse Rate 68 68 68 Respiratory Rate Blood Pressure Pulse Oximetry 01/24/18 00:00 01/24/18 01:00 01/24/18 02:00 Temperature 98.5 F Pulse Rate 68 64 62 Respiratory Rate 18 Blood Pressure 111/47 L Pulse Oximetry 93 L 01/24/18 03:00 01/24/18 04:00 01/24/18 05:00 Temperature 98.7 F Pulse Rate 59 L 61 62 Respiratory Rate 18 Blood Pressure 95/50 L Pulse Oximetry 93 L 01/24/18 06:00 01/24/18 07:00 01/24/18 08:00 Temperature 97.9 F Pulse Rate 80 59 L 72 Respiratory Rate 16 Blood Pressure 116/77 Pulse Oximetry 96 Intake & Output 01/23/18 01/24/18 01/24/18 18:59 06:59 18:59 Intake Total 1000 / 1000 240 / 240 Output Total 150 / 150 Balance 1000 / 1000 90 / 90 Weight 61.5 kg Intake: Oral 1000 / 1000 240 / 240 Output: Urine 150 / 150 Other: # Voids 2 Date of Last Bowel Movement 01/22/18 01/22/18 Narrative: Subjective: Patient feels much better. No chest pain or shortness of breath. No diaphoresis, palpitations or dizziness. No fever or chills, co cough. No n/v/d/ c. Wants to go home. Physical exam: GENERAL: This is a well-nourished, well-developed patient, who is very anxious Skin: Healing lesion to left inner ankle, no drainage CARDIOVASCULAR: Regular rate and rhythm without murmurs, gallops, or rubs. RESPIRATORY: Clear to auscultation. Breath sounds equal bilaterally. No wheezes , rales, or rhonchi. On 2L GASTROINTESTINAL: Abdomen soft, non-tender, distended is her norm. Normal active bowel sounds MUSCULOSKELETAL: Extremities without clubbing, cyanosis, or edema. NEURO: Alert & Oriented x4 to person, place, time, situation. Moves all ext x4 Assessment and Plan 62 y/o female with a history of alcohol abuse, htn, hld, and copd presented to the ed with complaints of chest pressure and sob. NSTEMI Troponin .71, on admission repeat serial not trending down. EKG reviewed and shows SR with no ST elevation -Consult cardiology for evaluation -Heparin drip -S/P cardiac cath. s/p BMS to Diagonal - Continue ASA/Plavix/BB/Statin/AURY-I. Plavix for 1 year at least, but needs at least 6-8 weeks patient is threatening leaving AMA and also says she will probably not take meds if cant afford. -Nitropaste New onset Chf in exacerbation, bnp 1673, on admission patient denies a history Chest xray shows a small right pleural effusion -2d echo ok -Lasix Likely etoh induced HTN, currently elevated -Resume home medications, monitor vitals Chronic leg ulcer, seen in ED on 01/17 -Continue Bactrim BID 3 more days -Bacitracin ointment daily Tobaccoism Alcohol abuse -CIWA protocol -Withdrawal precautions - counselled excessively DVT prophylaxis: Heparin Discussed Condition With: Patient, nurse DC plan: s/p Cardiac cath 01/23 Cleared by cardiology . Adviced compliance with meds and folows up Adviced quitting tobacco and ETOH. Results - Labs CBC & Chem 7: 01/24/18 05:58 01/24/18 05:58 Laboratory Results - last 24 hr 01/24/18 01/24/18 05:58 05:58 WBC 10.0 RBC 4.00 Hgb 14.1 Hct 40.4 MCV 101.2 H MCH 35.2 H MCHC 34.8 RDW 14.7 Plt Count 165 MPV 10.0 Neut % (Auto) 74.7 H Lymph % (Auto) 20.6 Coos % (Auto) 4.1 Eos % (Auto) 0.2 Baso % (Auto) 0.4 Neut # (Auto) 7.5 Lymph # (Auto) 2.1 Coos # (Auto) 0.4 Eos # (Auto) 0.0 Baso # (Auto) 0.0 WBC Differential . Differential Comment Auto diff final Sodium 139 Potassium 3.7 Chloride 104 Carbon Dioxide 23.8 Anion Gap 11 BUN 19 H Creatinine 1.39 H Estimated GFR 39 L Random Glucose 78 Calcium 8.8
[2018-01-24 15:14] VITALS: PULSE 76
[2018-01-24 15:16] VITALS: BP 138/69; TEMP 98.1; O2SAT 95
--- NOTE | 2018-01-24 16:21 | ECHRPT ---
Indication: HEART FAILURE CONCLUSIONS Normal left ventricular size. Wall thickness is normal. The left ventricular systolic function is mildly reduced with an estimated ejection fraction of 45%. Mild distal anteroseptal hypokinesis. Mild mitral valve regurgitation. Aortic valve sclerosis is present. [id number] aortic valve regurgitation. There is mild tricuspid valve regurgitation. The estimated pulmonary arterial pressure is 32 mmHg. BP: / HR: Rhythm: Sinus MEASUREMENTS (Male / Female) Normal Values Technical Quality:Fair 2D ECHO LVOT Diameter 2.1 cm Aortic Root Diameter 3.7 cm M-MODE AV Cusp Separation MM 1.5 cm DOPPLER AV Peak Velocity 140.0 cm/s AV Peak Gradient 7.8 mmHg AV Mean Gradient 5.0 mmHg AV Velocity Time Integral 28.3 cm AI Peak Velocity 425.0 cm/s AI Peak Gradient 72.3 mmHg AI Pressure Half Time 751.0 ms LVOT Peak Velocity 91.0 cm/s LVOT Peak Gradient 3.3 mmHg LVOT Velocity Time Integral 15.2 cm AV Area Cont Eq vti 1.9 cm AV Area Cont Eq pk 2.3 cm Mitral E Point Velocity 105.0 cm/s Mitral A Point Velocity 40.0 cm/s Mitral E to A Ratio 2.6 LV E' Lateral Velocity 5.1 cm/s Mitral E to LV E' Lateral Ratio 20.7 LV E' Septal Velocity 4.7 cm/s Mitral E to LV E' Septal Ratio 22.4 TR Peak Velocity 233.0 cm/s TR Peak Gradient 21.7 mmHg Right Atrial Pressure 10.0 mmHg Pulmonary Artery Systolic Pressu 31.7 mmHg Right Ventricular Systolic Press 31.7 mmHg PV Peak Velocity 62.4 cm/s PV Peak Gradient 1.6 mmHg FINDINGS LEFT VENTRICLE Normal left ventricular size. Wall thickness is normal. The left ventricular systolic function is mildly reduced with an estimated ejection fraction of 45%. Mild distal anteroseptal hypokinesis. RIGHT VENTRICLE Normal right ventricular size and systolic function. LEFT ATRIUM The left atrial size is normal. RIGHT ATRIUM The right atrial size is normal. ATRIAL SEPTUM No atrial level shunt is demonstrated by color flow Doppler interrogation. AORTA The aortic root and proximal ascending aorta are not well visualized. MITRAL VALVE Mild mitral valve regurgitation. AORTIC VALVE Aortic valve sclerosis is present. Rnyy-ia-ojmqdikh aortic valve regurgitation. Cannot rule out a bicuspid aortic valve or trileaflet valve with partially fused commissure. TRICUSPID VALVE There is mild tricuspid valve regurgitation. The estimated pulmonary arterial pressure is 31.7 mmHg. PULMONARY VALVE No pulmonary valve regurgitation or stenosis. VESSELS The inferior vena cava is normal in size. PERICARDIUM No pericardial effusion. Jermaine Hernandez MD, FACC (Electronically Signed) Final Date:24 January 2018 16:19
--- NOTE | 2018-01-27 17:55 | P.DS ---
Date of admission: 01/22/18 19:29 Primary care physician: No Primary Care Physician Brief History from admission: Discharge Date 01/24/18 62 y/o female with a history of alcohol abuse, htn, hld, and copd presented to the ed with complaints of chest pressure and sob. Patient states yesterday morning she woke up at 5 am with increasing sob and chest pressure. She states the chest pressure was intermittent with no radiation or nausea/vomiting. She states her dyspnea was at rest and with exertion. Upon examination patient was very anxious and states she just wants to get some rest and is requesting sleeping medication. She states she is an alcoholic and gets tremors if she doesn't drink. DS: Medications - Discharge Medications Prescriptions: aspirin 81 mg PO DAILY #120 tab chlordiazepoxide HCl 5 mg/m2 PO Q8H PRN #9 cap PRN Reason: alcohol withdrawal clopidogrel [Plavix] 75 mg PO DAILY #120 tab lovastatin 20 mg PO DAILY #90 tab metoprolol tartrate 12.5 mg PO BID #60 tab nitroglycerin [Nitrostat] 0.4 mg SUBLINGUAL Q5-15M PRN #30 tab PRN Reason: chest pain DS: Summary Hospital Course: Physical exam: GENERAL: This is a well-nourished, well-developed patient, who is very anxious Skin: Healing lesion to left inner ankle, no drainage CARDIOVASCULAR: Regular rate and rhythm without murmurs, gallops, or rubs. RESPIRATORY: Clear to auscultation. Breath sounds equal bilaterally. No wheezes , rales, or rhonchi. On 2L GASTROINTESTINAL: Abdomen soft, non-tender, distended is her norm. Normal active bowel sounds MUSCULOSKELETAL: Extremities without clubbing, cyanosis, or edema. NEURO: Alert & Oriented x4 to person, place, time, situation. Moves all ext x4 Assessment and Plan 62 y/o female with a history of alcohol abuse, htn, hld, and copd presented to the ed with complaints of chest pressure and sob. NSTEMI Troponin .71, on admission repeat serial not trending down. EKG reviewed and shows SR with no ST elevation -Consult cardiology for evaluation -Heparin drip -S/P cardiac cath. s/p BMS to Diagonal - Continue ASA/Plavix/BB/Statin/AURY-I. Plavix for 1 year at least, but needs at least 6-8 weeks patient is threatening leaving AMA and also says she will probably not take meds if cant afford. Discussed with the patient at length. Als odiscussed with CM and patient to receive meds at DC. -Nitropaste New onset Chf in exacerbation, bnp 1673, on admission patient denies a history Chest xray shows a small right pleural effusion -2d echo ok -Lasix Likely etoh induced HTN, currently elevated -Resume home medications, monitor vitals Chronic leg ulcer, seen in ED on 01/17 -Continue Bactrim BID 3 more days -Bacitracin ointment daily Tobaccoism Alcohol abuse -WA protocol -Withdrawal precautions - counselled excessively DVT prophylaxis: Heparin Discussed Condition With: Patient, nurse DC plan: s/p Cardiac cath 01/23 Cleared by cardiology . Adviced compliance with meds and folows up Adviced quitting tobacco and ETOH. - Time Spent with Patient Total time spent providing and/or coordinating discharge services: Greater than 30 minutes - Quality: VTE Deep Vein Thrombosis/Pulmonary Embolism Present on Admission: No Results Procedures completed during hospitalization: cardiac cath 01/24/[address] Ryder cardiology - Impressions ITS Impressions Chest X-Ray 01/22/18 16:35 CONCLUSION: New small right pleural effusion Chest CTA 01/22/18 19:41 CONCLUSION: 1. No pulmonary embolus. 2. Mild bilateral pleural effusions being worse in the right. There is some adjacent suspected atelectasis or consolidation at the right lung base. Abdomen/Pelvis CT 01/22/18 19:42 CONCLUSION: 1. No acute intra-abdominal abnormality. 2. Mild bilateral pleural effusions with some accompanying atelectasis or consolidation at the right lung base. 3. Mild hepatic steatosis. 4. Atherosclerotic calcifications. 5. Midline umbilical hernia containing mesenteric fat. 6. Degenerative change in the lower lumbar spine. Discharge Plan - Discharge Disposition Patient Disposition: 01 Discharge Home - Discharge Condition Condition: Stable - Discharge Order Discharge Orders: Discharge Order (Routine); Ordered 01/24/18 Ordered By: Milly Fitzgerald - Discharge Details Anticipated Discharge Date: 01/24/18 - Physicians Team Primary Care Provider: Primary Care Malcolm,No Attending Provider: Milly Fitzgerald Other Providers: Suman Cid DO
== END 2018-01-24 17:20 | disposition home or self-care (01) ==
LOC: PHED 16:00 → PHEDA 19:29 → HCIS 22:00
PROVIDERS: ADMIT Hospitalist; ATTEND Hospitalist

== ENCOUNTER 2018-02-20 18:35 | Observation (INO) ==
--- NOTE | 2018-02-20 19:18 | ED ---
HPI General Chief Complaint: Chest Pain Stated Complaint: sob Time Seen by Provider: 02/20/18 19:14 Source: patient Mode of arrival: ambulatory Limitations: no limitations History of Present Illness HPI narrative: 62-year-old female patient with history of previous AR last month , stenting, presents to the ER today because she states that she has had intermittent chest pains for the last 2 days, denies any current chest pains, but states that she is also having some back discomfort. She denies any shortness of breath, abdominal pains, or other symptoms. She states that she is on aspirin, is not taking her Plavix right now. Has not yet followed up with cardiology on the outside. Complete Quality Measures for STEMI Alert Patients Related Data Home Medications Medication Instructions Recorded Confirmed lisinopril 10 mg PO DAILY 01/06/18 02/20/18 tizanidine [Zanaflex] 2 mg PO HS PRN 01/06/18 02/20/18 folic acid 1 mg PO DAILY 02/20/18 02/20/18 Previous Rx's Medication Instructions Recorded thiamine HCl (vitamin B1) 100 mg PO DAILY #30 tab 01/08/18 aspirin 81 mg PO DAILY #120 tab 01/24/18 chlordiazepoxide HCl 5 mg/m2 PO Q8H PRN #9 cap 01/24/18 clopidogrel [Plavix] 75 mg PO DAILY #120 tab 01/24/18 lovastatin 20 mg PO DAILY #90 tab 01/24/18 metoprolol tartrate 12.5 mg PO BID #60 tab 01/24/18 nitroglycerin [Nitrostat] 0.4 mg SUBLINGUAL Q5-15M PRN #30 01/24/18 tab Allergies Allergy/AdvReac Type Severity Reaction Status Date / Time No Known Allergies Allergy Verified 01/22/18 16:42 Review of Systems ROS: all other systems reviewed are negative [facility] Medical History Medical History Alcohol abuse (Acute) HLD (hyperlipidemia) (Acute) HTN (hypertension) (Acute) Surgical History Surgical History Hx of tonsillectomy (Acute) H/O: hysterectomy (Acute) Family History Family History Other Colon cancer Social History Social History Substance History: No History of Abuse Second Hand Smoke Exposure: Yes Smoking Status: Current every day smoker Tobacco Type: Cigarettes How Often Do You Have a Drink Containing Alcohol: 4 or more times a week Hx Recent Travel: No Recent Travel in [facility] within the Last 8 Weeks: No Recent Out of Country Travel within the Last 8 Weeks: No Immunization History Tetanus Immunization: Never Vaccinated Hx Influenza Vaccine This Season: No Exam Narrative Exam Narrative: GENERAL: Well-developed elderly female patient currently and mild distress. Awake and oriented 3. SKIN: Focused skin assessment warm/dry. HEAD: Atraumatic. Normocephalic. EYES: Pupils equal and round. No scleral icterus. No injection or drainage. ENT: No nasal bleeding or discharge. Mucous membranes pink and moist. NECK: Trachea midline. No JVD. CARDIOVASCULAR: Regular rate and rhythm. No murmur appreciated. Pulses are present and equal bilaterally. RESPIRATORY: No accessory muscle use. Clear to auscultation. Breath sounds equal bilaterally. GASTROINTESTINAL: Abdomen soft, non-tender, nondistended. Hepatic and splenic margins not palpable. MUSCULOSKELETAL: No obvious deformities. No clubbing. No cyanosis. No edema. NEUROLOGICAL: Awake and alert. No obvious cranial nerve deficits. Motor grossly within normal limits. Normal speech. PSYCHIATRIC: Appropriate mood and affect; insight and judgment normal. Course Initial Documented Vital Signs Pulse Rate 63 02/20/18 18:58 Respiratory Rate 18 02/20/18 18:58 Blood Pressure 111/77 02/20/18 18:58 Pulse Oximetry 99 02/20/18 18:58 Last Documented Vital Signs Pulse Rate 63 02/20/18 18:58 Respiratory Rate 18 02/20/18 18:58 Blood Pressure 111/77 02/20/18 18:58 Pulse Oximetry 99 02/20/18 18:58 Medical Decision Making MDM Narrative Medical decision making narrative: Initial EKG shows T-wave inversions in the inferior leads, V3 through V6. No signs of acute ST elevations. EKG is compared to her previous EKG on 01/26/18 and the T-wave changes looks the same. It does not make STEMI criteria. Initial workup was ordered. Aspirin and nitroglycerin was given in the ER. Patient is currently chest pain-free. Case is signed out at [address] Hernandez who is coming on shift. Case was also discussed with Dr. Cid at 7:30 PM and he states that he would not do further alerts at this time, patient can get chest pain workup and be admitted medically for further evaluation. Medical Screen Exam Complete: Yes Emergency Medical Condition: Yes Differential Diagnosis Differential Diagnosis: Dysrhythmias versus ACS versus muscular skeletal Lab Data Result diagrams: 02/20/18 19:10 02/20/18 19:10 Discharge Plan Discharge Disposition Patient Disposition: 30 Still Patient Discharge Details Diagnosis: Unstable angina pectoris Physicians Team ED Provider: Germania Bowden Rxs /Orders / Referrals /Forms Prescriptions: No Action folic acid 1 mg Tablet 1 mg PO DAILY RF: 0 lisinopril 10 mg Tablet 10 mg PO DAILY RF: 0 tizanidine [Zanaflex] 2 mg Capsule 2 mg PO HS PRN (Reason: Sleep) RF: 0 thiamine HCl (vitamin B1) 100 mg Tablet 100 mg PO DAILY Qty: 30 RF: 0 clopidogrel [Plavix] 75 mg Tablet 75 mg PO DAILY Qty: 120 RF: 0 aspirin 81 mg Tablet,Chewable 81 mg PO DAILY Qty: 120 RF: 0 metoprolol tartrate 25 mg Tablet 12.5 mg PO BID Qty: 60 RF: 0 nitroglycerin [Nitrostat] 0.4 mg Tablet, Sublingual 0.4 mg SUBLINGUAL Q5-15M PRN (Reason: chest pain ) Qty: 30 RF: 0 lovastatin 20 mg Tablet 20 mg PO DAILY Qty: 90 RF: 0 chlordiazepoxide HCl 5 mg Capsule 5 mg/m2 PO Q8H PRN (Reason: alcohol withdrawal ) Qty: 9 RF: 0 Discharge Instructions Patient Printed Instructions: Chest Pain (ED) Status ED Status: With Doctor
[2018-02-20 19:32] LABS: Activated Partial Thrombo Time 22.6 sec (24.3-30.1); Baso # (Auto) 0.1 th/mm3 (0.0-0.2); Baso % (Auto) 1.1 % (0.0-2.0); Eos # (Auto) 0.1 th/mm3 (0.0-0.4); Eos % (Auto) 1.9 % (0.0-4.0); Hemoglobin 13.4 gm/dL (11.6-15.3); Lymph # (Auto) 2.2 th/mm3 (1.0-4.8); Lymph % (Auto) 47.5 % (9.0-44.0); Mean Corpuscular HGB Conc 34.3 % (32.0-36.0); Mean Corpuscular Hemoglobin 35.8 pg (27.0-34.0); Mean Corpuscular Volume 104.6 fL (80.0-100.0); Mean Platelet Volume 9.6 fL (7.0-11.0); Mono # (Auto) 0.5 th/mm3 (0.0-0.9); Mono % (Auto) 10.9 % (0.0-8.0); Neut # (Auto) 1.8 th/mm3 (1.8-7.7); Neut % (Auto) 38.6 % (16.0-70.0); Platelet Count 225 th/mm3 (150-450); Prothrombin Time 10.1 sec (9.8-11.6); Red Blood Count 3.73 mil/mm3 (4.00-5.30); Red Cell Distribution Width 15.7 % (11.6-17.2); White Blood Count 4.6 th/mm3 (4.0-11.0)
[2018-02-20 19:54] LABS: Alanine Aminotransferase 30 U/L (10-53)
[2018-02-20 19:58] LABS: Alkaline Phosphatase 103 U/L (45-117); Total Protein 7.2 g/dL (6.4-8.2)
--- NOTE | 2018-02-20 19:59 | XR ---
EXAM DATE: 02/20/2018 7:42 PM EDT AGE/SEX: 62 years / Female INDICATIONS: Chest pain on and off for 1 week. CLINICAL DATA: This is the patient's initial encounter. Patient reports that signs and symptoms have been present for 1 week and indicates a pain score of 4/10. MEDICAL/SURGICAL HISTORY: Hypertension. Coronary artery stent. COMPARISON: HPO, CHEST 1V SINGLE AP, 01/22/2018. . FINDINGS: A single AP view of the chest demonstrates the lungs to be symmetrically aerated without evidence of mass, infiltrate or effusion. The cardiomediastinal contours are unremarkable. Osseous structures a re intact. CONCLUSION: Lungs are clear. Electronically signed by: Elver Hopson MD 02/20/2018 7:57 PM EDT
[2018-02-20 20:00] LABS: Albumin 3.2 g/dL (3.4-5.0); Anion Gap 11 meq/L (5-15); Aspartate Aminotransferase 71 U/L (15-37); Blood Urea Nitrogen 12 mg/dL (7-18); Calcium 8.4 mg/dL (8.5-10.1); Carbon Dioxide 21.7 meq/L (21.0-32.0); Chloride 110 meq/L (98-107); Glomerular Filtration Rate 55 mL/min (>89); Glucose,Random 85 mg/dL (74-106); Potassium 4.7 meq/L (3.5-5.1); Sodium 143 meq/L (136-145)
[2018-02-20] MEDS ORDERED: Acetaminophen 500 MG Tablet PO PRN (20:42)
[2018-02-20] MEDS ORDERED: Haloperidol Inj 5 MG/ML Ampul IV.PUSH PRN (20:48)
--- NOTE | 2018-02-20 20:54 | P.HP ---
History of Present Illness Service: [facility] History of Present Illness: 62-year-old female with past medical history significant for alcohol abuse, hypertension, hyperlipidemia and CAD status post DE approximately 1 month ago with stent placement presents to the emergency department for evaluation of chest pain, back pain, abdominal pain and nausea/vomiting. The patient denies any current chest pain. On her arrival to the emergency department she reported that she had back pain and abdominal pain with nausea vomiting that has since resolved. The patient reports that she would like to go home. EKG significant for T-wave inversion that is deeper than prior. Initial troponin is negative. The patient reports that she did not take her Plavix today because she only has 1 pill left. She reports she cannot afford the Plavix because it cost $70. She is unsure what she is going to do at this time. She does report smoking a half a pack of cigarettes daily and drinking a quarter of 1/5 of vodka daily. The patient denies any associated shortness of breath. No fevers/chills. No diarrhea. No lateralizing signs/symptoms. Inpatient Certification: I certify that the inpatient services were ordered in accordance with Medicare regulations governing the order. This includes certification that hospital inpatient services are reasonable and necessary and in the case of services not specified as inpatient-only under 42 CFR 419.22(n), that they are appropriately provided as inpatient services in accordance to with the 2-midnight benchmark under 43 CFR 412.3(e) Review of Systems All other systems reviewed negative except as stated in HPI PMFSH - History History Provided By: Patient - Medical History Medical History: Medical History (Last Updated 02/20/18 @ 20:47 by Adelia Luna MD) Alcohol abuse (Acute) HLD (hyperlipidemia) (Acute) HTN (hypertension) (Acute) Coronary artery disease Status post myocardial infarction - Surgical History Surgical History: Surgical History (Last Updated 02/20/18 @ 20:47 by Adelia Luna MD) Hx of tonsillectomy (Acute) H/O: hysterectomy (Acute) H/O cardiac catheterization - Family History Family History: Family History (Last Reviewed 02/20/18 @ 19:15 by Germania Bowden MD) Other Colon cancer - Tobacco History Second Hand Smoke Exposure: Yes Tobacco Use In Past 30 Days: Yes Smoking Status: Current every day smoker Tobacco Type: Cigarettes - Alcohol History How Often Do You Have a Drink Containing Alcohol: 4 or more times a week - Substance Use History Substance History: No History of Abuse - Travel History History of Recent Travel: No Recent Travel in the [place] Within the Last 8 Weeks: No Recent Travel Out of the Country Within the Last 8 Weeks: No - Immunization History Tetanus Immunization: Never Vaccinated Hx Influenza Vaccine This Season: No Medications and Allergies Active Medications: Active Medications Aspirin (Aspirin Chew) 81 mg PO DAILY [facility] Chlordiazepoxide (Librium) mg PO Q8H PRN PRN Reason: alcohol withdrawal Clopidogrel Bisulfate (Plavix) 75 mg PO DAILY [facility] Folic Acid (Folic Acid) 1 mg PO DAILY [facility] Lisinopril (Prinivil) 10 mg PO DAILY [facility] Metoprolol Tartrate (Lopressor) 12.5 mg PO BID [facility] Nitroglycerin (Nitrostat Sl (Override)) 0.4 mg SL Q5-15M PRN PRN Reason: chest pain Non-Formulary Medication (Lovastatin [Lovastatin]) 20 mg PO DAILY [facility] Non-Formulary Medication (Tizanidine [Zanaflex]) 2 mg PO HS PRN PRN Reason: Sleep Sodium Chloride (Ns Flush) 2 ml IV.FLUSH UNSCH PRN PRN Reason: FLUSH AFTER USING IV ACCESS Thiamine HCl (Vitamin B1) 100 mg PO DAILY [facility] Allergies Allergy/AdvReac Type Severity Reaction Status Date / Time No Known Allergies Allergy Verified 01/22/18 16:42 Home Medications Medication Instructions Recorded Confirmed Type lisinopril 10 mg PO DAILY 01/06/18 02/20/18 History tizanidine [Zanaflex] 2 mg PO HS PRN 01/06/18 02/20/18 History folic acid 1 mg PO DAILY 02/20/18 02/20/18 History Exam Vital signs: Vital Signs 02/20/18 18:58 Pulse Rate 63 Respiratory Rate 18 Blood Pressure 111/77 Pulse Oximetry 99 Intake & Output 02/20/18 02/20/18 02/21/18 06:59 18:59 06:59 Weight 60.781 kg Narrative: Gen.: No acute distress Head: Normocephalic. Atraumatic. EENT: Pupils equal round and reactive to light. Nose without drainage. Airway intact. Throat without injection. Cardiovascular: Regular rate and rhythm. No murmurs, rubs or gallops. Respiratory: Lungs clear to auscultation bilaterally. No wheezes or rhonchi. Abdomen: Soft, nontender, nondistended. No peritoneal signs. Musculoskeletal: No gross deformities. No edema. Skin: No obvious rashes or erythema. Neuro: Sensory and motor grossly intact. Cranial nerves II through XII grossly intact. Results - Labs CBC & Chem 7: 02/20/18 19:10 02/20/18 19:10 Labs: Laboratory Results - last 24 hr 02/20/18 02/20/18 02/20/18 19:10 19:10 19:10 WBC 4.6 RBC 3.73 L Hgb 13.4 Hct 39.0 MCV 104.6 H MCH 35.8 H MCHC 34.3 RDW 15.7 Plt Count 225 D MPV 9.6 Neut % (Auto) 38.6 Lymph % (Auto) 47.5 H [place] % (Auto) 10.9 H Eos % (Auto) 1.9 Baso % (Auto) 1.1 Neut # (Auto) 1.8 Lymph # (Auto) 2.2 [place] # (Auto) 0.5 Eos # (Auto) 0.1 Baso # (Auto) 0.1 WBC Differential . Differential Comment Auto diff final PT 10.1 INR 1.0 APTT 22.6 L Sodium 143 Potassium 4.7 Chloride 110 H Carbon Dioxide 21.7 Anion Gap 11 BUN 12 Creatinine 1.02 H Estimated GFR 55 L Random Glucose 85 Calcium 8.4 L Total Bilirubin 0.4 AST 71 H ALT 30 Alkaline Phosphatase 103 Troponin I Less than 0.02 L Total Protein 7.2 Albumin 3.2 L - Imaging Impressions Chest X-Ray 02/20/18 19:03 CONCLUSION: Lungs are clear. Caprini VTE Risk Assessment Caprini VTE Risk Assessment: Moderate/High Risk (score >= 2) Caprini Risk Assessment Model: Point Value = 1 Point Value = 2 Point Value = 3 Point Value = 5 Age 41-60 Minor surgery BMI > 25 kg/m2 Swollen legs Varicose veins or History of unexplained or recurrent spontaneous Oral contraceptives or hormone replacement Sepsis (< 1 month) Serious lung disease, including pneumonia (< 1 month) Abnormal pulmonary function Acute myocardial infarction Congestive heart failure (< 1 month) History of inflammatory bowel disease Medical patient at bed rest Age 61-74 Arthroscopic surgery Major open surgery (> 45 min) Laparoscopic surgery (> 45 min) Malignancy Confined to bed (> 72 hours) Immobilizing plaster cast Central venous access Age >= 75 History of VTE Family history of VTE Factor V Leiden Prothrombin [id number] Lupus anticoagulant Anticardiolipin antibodies Elevated serum homocysteine Heparin-induced thrombocytopenia Other congenital or acquired thrombophilia Stroke (< 1 month) Elective arthroplasty Hip, pelvis, or leg fracture Acute spinal cord injury (< 1 month) Prophylaxis Regimen: Total Risk Factor Score Risk Level Prophylaxis Regimen 0-1 Low Early ambulation 2 Moderate Order ONE of the following: *Sequential Compression Device (SCD) *Heparin 5000 units SQ BID 3-4 Higher Order ONE of the following medications: *Heparin 5000 units SQ TID *Enoxaparin/Lovenox 40 mg SQ daily (WT < 150 kg, CrCl > 30 mL/min) *Enoxaparin/Lovenox 30 mg SQ daily (WT < 150 kg, CrCl > 10-29 mL/min) *Enoxaparin/Lovenox 30 mg SQ BID (WT < 150 kg, CrCl > 30 mL/min) AND/OR *Sequential Compression Device (SCD) 5 or more Highest Order ONE of the following medications: *Heparin 5000 units SQ TID (Preferred with Epidurals) *Enoxaparin/Lovenox 40 mg SQ daily (WT < 150 kg, CrCl > 30 mL/min) *Enoxaparin/Lovenox 30 mg SQ daily (WT < 150 kg, CrCl > 10-29 mL/min) *Enoxaparin/Lovenox 30 mg SQ BID (WT < 150 kg, CrCl > 30 mL/min) AND *Sequential Compression Device (SCD) Assessment and Plan - Plan Assessment/plan: 1. Chest pain/back pain/abdominal pain with history of coronary artery disease status post DE 1 month ago Patient underwent cardiac catheterization and stent placement 1 month ago EKG today significant for T-wave inversion, deeper than previous in V1 through V6, personally reviewed. No ST segment elevation or depression Initial troponin negative Cardiology consulted, per Dr. Cid's recommendation patient should be admitted to the hospital and ruled out ACS rule out pending; serial troponins/EKGs Patient reports that she did not take her Plavix today because she only has 1 pill left. She states that she cannot afford her Plavix because it costs $7. She reports that she does not know what to do. Resume Plavix. Consult case management. 2. Hypertension/hyperlipidemia Continue home medications 3. Alcohol abuse [facility] protocol Monitor for signs of withdrawal FEN N.p.o. Electrolytes: Monitor and replete as needed Heparin NS at 70 cc/hour
[2018-02-20] MEDS: Heparin - SQ 10,000 UNITS/ML Vial SQ SCH (20:58)
[2018-02-20] MEDS: Metoprolol Tartrate 25 MG Tablet PO SCH (20:59)
[2018-02-20] MEDS: Sod Chloride 0.9% Inj 1,000 ML IV.CONT SCH (22:48)
--- NOTE | 2018-02-20 23:33 | ECG ---
Date Performed: 02/20/2018 Time Performed: 18:47:29 PTAGE: 62 years EKG: Sinus rhythm POSSIBLE LEFT ATRIAL ENLARGEMENT SEPTAL MYOCARDIAL INFARCTION MARKED T-WAVE ABNORMALITY, CONSIDER AN TEROLATERAL ISCHEMIA MARKED T-WAVE ABNORMALITY, CONSIDER INFERIOR ISCHEMIA ABNORMAL ECG PREVIOUS TRACING : 01/23/2018 05.26 Since the previous tracing, no significant change noted DOCTOR: Suman Cid Interpretating Date/Time 02/20/2018 23:31:25
[2018-02-21 02:34] LABS: Creatine Kinase 76 U/L (26-192)
[2018-02-21 03:21] LABS: Creatine Kinase 90 U/L (26-192)
[2018-02-21] MEDS: Metoprolol Tartrate 25 MG Tablet PO SCH ×2 (08:54→21:46)
[2018-02-21] MEDS: Lisinopril 10 MG Tablet PO SCH (08:54)
[2018-02-21] MEDS: Heparin - SQ 10,000 UNITS/ML Vial SQ SCH ×2 (08:55→21:46)
[2018-02-21] MEDS: LORazepam 1 MG Tablet PO PRN (08:55)
[2018-02-21] MEDS: Folic Acid 1 MG Tablet PO SCH (08:55)
--- NOTE | 2018-02-21 12:16 | P.PN ---
Subjective Interval history: patient is now awske and alert, denies any pain, nausea or vomiting still drinks "couple of cups of vodka with tea daily" patient statess she was in the mall and was brought in by mall security - but is not sure on Plavix- ? compliance with alcoholism Physical Exam Vital signs: Vital Signs 02/20/18 18:58 02/20/18 21:04 02/20/18 22:23 Temperature 97.5 F L Pulse Rate 63 66 64 Respiratory Rate 18 18 17 Blood Pressure 111/77 120/84 126/70 Pulse Oximetry 99 98 95 02/21/18 00:39 02/21/18 03:52 02/21/18 07:16 Temperature 98.1 F 98.6 F Pulse Rate 71 68 77 Respiratory Rate 19 16 Blood Pressure 138/89 177/107 H Pulse Oximetry 95 95 02/21/18 11:47 Temperature 98.5 F Pulse Rate 75 Respiratory Rate 14 Blood Pressure 171/91 H Pulse Oximetry 97 Intake & Output 02/20/18 02/21/18 02/21/18 18:59 06:59 18:59 Weight 60.781 kg 60.781 kg Other: Date of Last Bowel Movement 02/20/18 Weight On Admission 60.781 kg Results - Labs CBC & Chem 7: 02/20/18 19:10 02/20/18 19:10 Laboratory Results - last 24 hr 02/20/18 02/20/18 02/20/18 19:10 19:10 19:10 WBC 4.6 RBC 3.73 L Hgb 13.4 Hct 39.0 MCV 104.6 H MCH 35.8 H MCHC 34.3 RDW 15.7 Plt Count 225 D MPV 9.6 Neut % (Auto) 38.6 Lymph % (Auto) 47.5 H [place] % (Auto) 10.9 H Eos % (Auto) 1.9 Baso % (Auto) 1.1 Neut # (Auto) 1.8 Lymph # (Auto) 2.2 [place] # (Auto) 0.5 Eos # (Auto) 0.1 Baso # (Auto) 0.1 WBC Differential . Differential Comment Auto diff final PT 10.1 INR 1.0 APTT 22.6 L Sodium 143 Potassium 4.7 Chloride 110 H Carbon Dioxide 21.7 Anion Gap 11 BUN 12 Creatinine 1.02 H Estimated GFR 55 L Random Glucose 85 Calcium 8.4 L Total Bilirubin 0.4 AST 71 H ALT 30 Alkaline Phosphatase 103 Total Creatine Kinase Troponin I Less than 0.02 L Total Protein 7.2 Albumin 3.2 L 02/21/18 02/21/18 01:56 02:15 WBC RBC Hgb Hct MCV MCH MCHC RDW Plt Count MPV Neut % (Auto) Lymph % (Auto) [place] % (Auto) Eos % (Auto) Baso % (Auto) Neut # (Auto) Lymph # (Auto) [place] # (Auto) Eos # (Auto) Baso # (Auto) WBC Differential Differential Comment PT INR APTT Sodium Potassium Chloride Carbon Dioxide Anion Gap BUN Creatinine Estimated GFR Random Glucose Calcium Total Bilirubin AST ALT Alkaline Phosphatase Total Creatine Kinase 76 90 Troponin I Less than 0.02 L Less than 0.02 L Total Protein Albumin - Imaging Impressions Chest X-Ray 02/20/18 19:03 CONCLUSION: Lungs are clear. Assessment and Plan - Plan 62 years old female Atypical Chest pain/Upper back pain with History of coronary artery disease status post PR 1 month ago- 01/22 Cardiomyopathy- echo with known EF 45% - not in clinical failure Hypertension Hyperlipidemia -EKG on admission significant for T-wave inversion, deeper than previous in V1 through V6, personally reviewed. No ST segment elevation or depression -Troponins negative -Cardiology consulted- known to Dr. Cid- - per patient she was supposed to ff up with Dr. Cid 4 weeks and called his office on DC then but was not able to make one- "office made it difficult- I have patient assistance" -troponins negative -? compliance with meds -Patient reports that she did not take her Plavix today because she only has 1 pill left. -She states that she cannot afford her Plavix because it costs $7. -Resumed Plavix. Consult case management. - restart meds- Lisinopril 10 mg daily, ASA 81 mg daily, Lopressor 12,5 mg po bid, Lovastatin 20 mg hs Smoker- still smokes - counselled Alcohol abuse -[facility] protocol -Monitor for signs of withdrawal -patient counselled extensively right UE swelling- from infiltrated IV access - elevate right arm. Warm compress to area and monitor CM consult- patient has patient assistance- needs meds and OP ff up
--- NOTE | 2018-02-21 14:12 | MB ---
cc: Uche Lozano MD DATE: 02/21/2018 REASON FOR CONSULTATION: Chest pain. HISTORY OF PRESENT ILLNESS: The patient is a 62-year-old white female with a history of hypertension, COPD, hyperlipidemia, coronary artery disease, status post non-ST elevation myocardial infarction and stent of the diagonal a month ago, mildly reduced ejection fraction of 45%, who presented to the hospital mainly with complaints of back pain. She is somewhat of a poor historian, but states she may have had some upper back pain for the past couple of days, fairly severe in nature. In addition, she has had overall infrequent left upper chest discomforts described as "light" twinges of discomfort, never lasting more than a couple of minutes. The chest pains have no relationship to exertion and have not been associated with shortness of breath, nausea or diaphoresis. The patient also denies dizziness, syncope, near syncope, pedal edema, paroxysmal nocturnal dyspnea. She thinks she may have missed some doses of Plavix since her stent placement. PAST MEDICAL HISTORY: 1. Hypertension. 2. COPD. 3. Hyperlipidemia. 4. Gastritis. 5. Migraine headaches. 6. Coronary artery disease, status post non-ST elevation myocardial infarction with cardiac catheterization 01/23/2018 showing normal left main, normal left circumflex and right coronary, mild LAD disease, 80% mid diagonal stenosis treated with a 2.5 mm bare metal stent by Dr. Suman Cid. 7. Mildly reduced ejection fraction of 45% by echocardiogram 01/24/2018 CARDIAC MEDICATIONS AT HOME: 1. Metoprolol tartrate 12.5 mg b.i.d. 2. Lovastatin 20 mg daily. 3. Lisinopril 10 mg daily. 4. Plavix 75 mg daily. 5. Aspirin 81 mg daily. ALLERGIES: NO KNOWN DRUG ALLERGIES. FAMILY HISTORY: Noncontributory. SOCIAL HISTORY: The patient smokes about a pack of cigarettes per day. She drinks about a quart of vodka mixed with iced tea on a daily basis. REVIEW OF SYSTEMS: As in history of present illness, otherwise negative or noncontributory. She also denies headache, abdominal pain, melena, dyspepsia, bright red blood per rectum. PHYSICAL EXAMINATION: VITAL SIGNS: Blood pressure 171/91 with a pulse of 75, respirations 14. GENERAL: She is a well-developed, well-nourished white female, in no acute distress. NECK: Jugular venous pressure is normal. Carotid pulses are 2+ bilaterally and without bruits. CHEST: Reveals clear lungs mane. CARDIAC: She has a regular rhythm and rate without S3, S4, or murmur. ABDOMEN: She has a soft, nontender abdomen. Bowel sounds are present. There is no definite hepatosplenomegaly. EXTREMITIES: Reveals no clubbing, cyanosis or edema. DIAGNOSTIC DATA: Chest x-ray shows no acute disease. LABORATORY DATA: EKG shows sinus rhythm, moderate to marked diffuse T-wave inversion, consider ischemia. LABORATORY DATA: Includes WBC 4.6, hemoglobin 13.4, platelets 225. Potassium 4.7, BUN 12, creatinine 1.02. Negative cardiac enzymes. IMPRESSION: Overall atypical symptoms for myocardial ischemia in this 62-year-old white female with a history of recent stenting of the diagonal, mildly reduced ejection fraction 45%, chronic obstructive pulmonary disease, hypertension, hyperlipidemia. Cardiac enzymes are negative for myocardial infarction. Electrocardiograms do show diffuse T-wave inversion. I am unable to retrieve electrocardiogram from last month, however. There is no definite evidence for congestive heart failure. Of note, the patient may have missed some Plavix doses since her stent placement. RECOMMENDATIONS: Check a Lexiscan nuclear stress test. If it is negative for ischemia, she can be discharged home. MD TONNY Hardin/lacey , 01:30 PM , 01:41 PM [facility]
[2018-02-21] MEDS ORDERED: Regadenoson Inj 0.4 MG/5 ML Syringe IV.PUSH ONE (15:07)
--- NOTE | 2018-02-21 17:24 | NM ---
EXAM DATE: 02/21/2018 4:16 PM EDT AGE/SEX: 62 years / Female INDICATIONS:Angina. Myocardial infarction Chest and back pain. CLINICAL DATA: This is the patient's initial encounter. Patient reports that signs and symptoms have been present for 2 days and indicates a pain score of 4/10. MEDICAL/SURGICAL HISTORY: Hypertension. Hypercholesterolemia. Hysterectomy. Tonsillectomy. C oronary artery stent. COMPARISON: No prior exams available for comparison. No external comparison. DOSE: 8.7 mCi Tc 99m Myoview at rest 26.1 mCi [id number] at stress 0.4 mg Lexiscan STRESS SYMPTOMS: Short of breath. EJECTION FRACTION: 56 % TECHNIQUE: The patient underwent pharmacologic stress with infusion of prescribed dose. Continuous ECG tracing was monitored during stress. Gated SPECT imaging was performed after stress and conventi onal SPECT imaging was performed at rest. The examination was performed on a SPECT/CT scanner, both attenuation and non-corrected datasets were reviewed. FINDINGS: There is redistribution in the anterior wall thickening beginning in mid ventricle extending to the a pex. Ejection fraction is 56% with minimal hypokinesis in the anterior wall. RISK CATEGORY: Low (<1% Annual Motality Rate) CONCLUSION: 1. Redistribution consistent with stress-induced ischemia small segment anterior wall with hypokines is in the same segment. Electronically signed by: Piero Laughlin MD 02/21/2018 5:23 PM EDT
[2018-02-21] MEDS ORDERED: fentaNYL Citrate Inj 100 MCG/2 ML Ampul IV.PUSH SCH (19:45)
--- NOTE | 2018-02-21 21:40 | ECG ---
Date Performed: 02/21/2018 Time Performed: 03:13:14 PTAGE: 62 years EKG: Sinus rhythm WITH OCCASIONAL VENTRICULAR PREMATURE COMPLEXES SEPTAL MYOCARDIAL INFARCTION MARKED T-WAVE ABNORMALI TY, CONSIDER ANTEROLATERAL ISCHEMIA MODERATE T-WAVE ABNORMALITY, CONSIDER INFERIOR ISCHEMIA ABNORMAL ECG PREVIOUS TRACING : 02/20/2018 18.47 Since the previous tracing, no significant change noted DOCTOR: Suman Cid Interpretating Date/Time 02/21/2018 21:38:50
[2018-02-21] MEDS: Sod Chloride 0.9% Inj 1,000 ML IV.CONT SCH (21:47)
[2018-02-22] MEDS: LORazepam 1 MG Tablet PO PRN ×2 (01:51→15:44)
[2018-02-22] MEDS: Sod Chloride 0.9% Inj 1,000 ML IV.CONT SCH (04:38)
[2018-02-22] MEDS ORDERED: Sod Chloride 0.9% Inj 1,000 ML IV.CONT SCH (08:00)
--- NOTE | 2018-02-22 08:09 | P.PN ---
Subjective Interval history: had a good night no complains of chest discomfort or shortness of breath no nausea or vomiting looking forwad to going home after the cath Physical Exam Vital signs: Vital Signs 02/21/18 11:47 02/21/18 19:47 02/22/18 00:00 Temperature 98.5 F 98.2 F 98.7 F Pulse Rate 75 82 71 Respiratory Rate 14 16 18 Blood Pressure 171/91 H 200/98 H 176/95 H Pulse Oximetry 97 97 97 02/22/18 02:05 02/22/18 03:05 02/22/18 04:00 Temperature Pulse Rate 70 75 76 Respiratory Rate 16 Blood Pressure 190/98 H Pulse Oximetry 02/22/18 07:22 Temperature 98.1 F Pulse Rate 79 Respiratory Rate 20 Blood Pressure 150/73 H Pulse Oximetry 94 L Intake & Output 02/21/18 02/22/18 02/22/18 18:59 06:59 18:59 Intake Total 800 / 800 1000 / 1000 200 / 200 Balance 800 / 800 1000 / 1000 200 / 200 Intake: IV 800 / 800 1000 / 1000 200 / 200 NS Inj 1,000 ML @ 60 mls/hr IV. 800 / 800 1000 / 1000 200 / 200 CONT .[id number] [facility] Rx#:[id number] Other: # Voids 2 Date of Last Bowel Movement 02/20/18 Narrative: awake and alert, not tremulous anicteric lungs- no rales regular rhythm abdomen soft, nontender extremities- no edema LUE- swelling/pjel;ibeitis- almost resolved Results - Labs CBC & Chem 7: 02/20/18 19:10 02/20/18 19:10 - Imaging Impressions Myocardial Perfusion Scan Nuc Med 02/21/18 00:00 CONCLUSION: 1. Redistribution consistent with stress-induced ischemia small segment anterior wall with hypokinesis in the same segment. Assessment and Plan - Plan 62 years old female Atypical Chest pain/Upper back pain with History of coronary artery disease status post MA 1 month ago- 01/22 + stress test Cardiomyopathy- echo with known EF 45% - not in clinical failure Hypertension Hyperlipidemia -EKG on admission significant for T-wave inversion, deeper than previous in V1 through V6, personally reviewed. No ST segment elevation or depression -Cardiology consulted- known to Dr. Cid- - per patient she was supposed to ff up with Dr. Cid 4 weeks and called his office on DC then but was not able to make one- "office made it difficult- I have patient assistance" -troponins negative -? compliance with meds -Patient reports that she did not take her Plavix today because she only has 1 pill left. -She states that she cannot afford her Plavix because it costs $7. -Resumed Plavix. Consult case management. - restart meds- Lisinopril 10 mg daily, ASA 81 mg daily, Lopressor 12,5 mg po bid, Lovastatin 20 mg hs -cardiology ff- for cardiac cath thispm Smoker- still smokes - counselled Alcohol abuse -[facility] protocol - Librium 5 mg po q8 -Monitor for signs of withdrawal -patient counselled extensively right UE swelling- from infiltrated IV access- IMproved - elevate right arm. Warm compress to area and monitor d/w patient- DC plans- depends on cardiac cath results CM consult- patient has patient assistance- needs meds and OP ff up
[2018-02-22] MEDS: Lisinopril 10 MG Tablet PO SCH (08:13)
[2018-02-22] MEDS: Folic Acid 1 MG Tablet PO SCH (08:13)
[2018-02-22] MEDS: Heparin - SQ 10,000 UNITS/ML Vial SQ SCH (08:14)
[2018-02-22] MEDS: Metoprolol Tartrate 25 MG Tablet PO SCH (08:14)
[2018-02-22] MEDS ORDERED: Heparin/NS PF Inj 1,000 ML ONE (13:29)
--- NOTE | 2018-02-22 14:25 | CATHPROC ---
[employer] HIS Report Study Information Study Number Admission Scheduled Start Study Start [id number] Feb 20 2018 8:42PM 02/22/2018 Feb 22 2018 1:22PM [place] [facility] Cardiac Pacer/ICD Admit Source Facility Department Emergency department [facility] - [facility] Physician and Clinical Staff Initial Uche Oquendo Voice Network Engineer Brie oMreno,RUTH Recorder Jackelyn Romero ,RT(R) Scrub Gavino Sexton RCIS(BS) Scrub Adleia Neal RN Procedures Performed Procedure Location (Site) Vessel Name Angiogram LV LV Ventricle Coronary Angiograms LCA Left Coronary Coronary Angiograms RCA Right Coronary L Heart Cath Equipment Time Critical Care Clinical Nurse Specialist Description Size Mfg Part Number Used/Scraped TRANSDUCER, TRParentPlusAVE [id number] 13:24 [employer] JAUREGUI * Used W/STOCKCOCK *[id number] 14:19 [employer] MEDICAL VASCADE, FR6 CLOSURE SYSTEM FR 6\\7 Used *[id number] [id number] *[id number] 534-620T *[id number] 534-650S *[id number] 13:24 [employer] BLANKET,WARM AIR CCL * Used *[id number] 13:24 [employer] PACK, CCL CUSTOM * Used *[id number] 13:24 [employer] PACER PEN, SKIN DUAL W/ RULER * Used *[id number] 13:24 [employer] SHEATH, FR6.5 PRELUDE 11CM FR 6.5 038ACT Used *[id number] 13:24 [employer] WIRE, 3MMJ .035 180CM 180CM Used *[id number] 13:24 NAMIC MANIFOLD, 4 PORT * Used *[id number] 14:07 N[employer] TUBING, HIGH PRESSURE 48" 48" Used *[id number] 13:24 [employer] OMNIPAQUE, 350 MG, 150ML 150ML [id number] Used History: Current Medications Medication Dosage/Unit Route Frequency Last Date/Time Taken Statins (any) Beta Bennett ASA PLAVIX History: Allergies Allergy Reaction No Known Allergies none History: Risk Factors Hypertension Dyslipidemia Previous PR Previous Heart Failure Yes Yes Yes No Prior Valve Prior PCI Prior PCIDate Prior CABG Surgery No Yes 01/23/2018 No Cerebrovascular Peripheral Artery Chronic Lung On Dialysis Diabetes Disease Disease Disease No No Yes Yes No History: Stress Tests Stress or Imaging Studies Performed Yes Standard Exercise Stress Test No Stress Echo No Stress Test SPECT Stress Test SPECT Result Stress Test SPECT Ischemia Risk/Extent Yes Positive Intermediate Stress Test CMR No Cardiac CTA Coronary Calcium Score No No History: Other Disease Selection Items CAD COPD HTN Labs Hgb (g/dl) Hct (%) WBC (l/cumm) Platelets (thousands) 11.60-17.00 35.00-51.00 4.00-11.00 150.00-450.00 13.4 39 4.6 225 Glucose (mg/dl) BUN (mg/dl) Creatinine (mg/dl) BUN:Creatinine (1:x) 74.00-106.00 7.00-18.00 0.50-1.30 10.00-20.00 85 12 1.0 12 Na (meq/l) K (meq/l) 136.00-145.00 3.50-5.10 143 4.7 INR (PTT:PT) 0.90-1.10 1 Troponin I (ng/ml) CPK-MB (ng/ML) 0.02-0.05 0.50-3.60 0.02 Not Drawn Medication Medication Total Dose (Bolus/Oral) Medication Total Dosage/Unit 1% XYLOCAINE 15 mL FENTANYL 50 mcg VERSED 2 mg Medications (Bolus/Oral) Medication Time Given Dosage/Unit Administered By Reason VERSED 02/22/2018 1:57:18 PM 1 mg Brie Moreno 1 mg VERSED given in lab by Brie Moreno, RUTH in Right Antecubital via Peripheral IV. Ordered by Uche Lamas. FENTANYL 02/22/2018 1:58:47 PM 50 mcg Brie Moreno 50 mcg FENTANYL given in lab by Brie Moreno, RN in Right Antecubital via Peripheral IV. Ordered b y Uche Lozano. 1% XYLOCAINE 02/22/2018 1:59:01 PM 15 mL Uche Lozano 15 mL 1% XYLOCAINE given in lab by Uche Lozano in Right Groin via Subcutaneous. Ordered by Vitaliy Lozanon. VERSED 02/22/2018 2:02:00 PM 1 mg Brie Moreno 1 mg VERSED given in lab by Brie Moreno, RUTH via Peripheral IV. Ordered by Uche Lozano. Medication (Drip) Medication Time Given Dosage/Unit Concentration/Unit Diluent (ml) Solution IV Solutions 02/22/2018 1:33:56 PM 50 mL (IV) NaCl .9 Patient arrived on IV Solutions in Right Antecubital via Peripheral IV. Pump/Drip Flow using NaCl .9. Initial Case Assessment Cardiovascular HR NIBP 63 173/94 Edema Present Skin color Skin None Normal Warm Dry Circulatory - Right Pulses Dorsalis Pedis Femoral 2 2 Scale (0,1,2,3,4,d) Circulatory - Left Pulses Dorsalis Pedis Femoral 2 2 Scale (0,1,2,3,4,d) Neurological State Oriented to time-place- Alert Moves all extremities person Respiration - General Respiration Rate SpO2 (%) O2 (lpm) (B/min) 17 100 2 Final Case Assessment Cardiovascular HR NIBP 63 173/94 Edema Present Skin color Skin None Normal Warm Dry Circulatory - Right Pulses Dorsalis Pedis Femoral 2 2 Scale (0,1,2,3,4,d) Circulatory - Left Pulses Dorsalis Pedis Femoral 2 2 Scale (0,1,2,3,4,d) Neurological State Oriented to time-place- Alert Moves all extremities person Respiration - General Respiration Rate SpO2 (%) O2 (lpm) (B/min) 17 100 2 Chronological Log Time Study Chronological Log 13:33:45 Patient arrived via Bed. 13:33:46 Patient Name, D.O.B, / Armband Verified By R.N. 13:33:46 Consent signed by the physician and the patient and verified by the [facility] staff. 13:33:47 Pre-op and post- op instructions given; patient acknowledges understanding of instructions. 13:33:47 Verbal Stimulation=2 Physical Stimulation=2 Airway=2 Respiration=2 TOTAL=8. (0=absent, 1=li mited, 2=present) 13:33:48 Presedation assessment performed by [facility] RN. 13:33:49 Immediate Presedation assesment performed by physician. 13:33:50 Patient has been NPO for More than 6Hrs. 13:33:50 Skin Breakdown- none per patient 13:33:51 Patient Warmer Placed on the Table. 13:33:52 Wanda Prominences Protected 13:33:53 A # 20 IV was noted in the Antecubital (right). Grade = 0 13:33:56 Patient arrived on IV Solutions in Right Antecubital via Peripheral IV. Pump/Drip Flow usin g NaCl .9. 13:33:57 History and physical on the chart or being dictated. Vitals capture started with the following parameters, Patient=Adult, Interval=5 min, Initial Pr fddlpi=026 mmHg, 13:41:26 Deflation Rate=5 mmHg, Cuff placed on Left Leg Assessment: Initial Case, HR=63 BPM, QGZF=115/94 mmhg, Edema=None, Color=Normal, Skin = Warm, D ry Right Pulses: Rafy Ped=2, Femoral=2 13:42:08 Left Pulses: Rafy Ped=2, Femoral=2 Neurological: State=Alert, Ox3, LAW Respiration: Resp=17 B/min, CzP2=012 %, O2=2 lpm 13:42:44 HR=61 bpm, MCRZ=967/94 mmhg, JhY7=666.0 % 13:47:04 HR=71 bpm, LWVA=204/105 mmhg, UzF8=366.0 % 13:50:36 MD paged 13:51:14 MD responded 13:51:45 Reference ECG taken 13:52:04 HR=72 bpm, EKVK=599/107 mmhg, OqO3=484.0 %, Resp=18 B/min 13:52:40 Pressure channel 1 zeroed. 13:55:14 MD arrived. 13:57:07 HR=64 bpm, AZQN=950/102 mmhg, SpO2=99.0 % 13:57:18 1 mg VERSED given in lab by Brie Moreno, RUTH in Right Antecubital via Peripheral IV. Ord ered by Uche Lozano. 13:58:47 50 mcg FENTANYL given in lab by Brie Moreno, RUTH in Right Antecubital via Peripheral IV. Ordered by Uche Lozano. Time Out. Correct patient, correct procedure, correct physician, labs, allergies, and equipment verified with oven laborer 13:58:52 team present. Fire risk assesment completed (see hard stop sheet for coding). Time Out Conc urred by and individual staff in procedure. 13:59:00 Case Start 13:59:01 15 mL 1% XYLOCAINE given in lab by Uche Lozano in Right Groin via Subcutaneous. Ordered by Uche Lozano. 14:00:31 Access site was Right Femoral Artery. 14:00:39 A SHEATH, FR6.5 PRELUDE 11CM FR 6.5 was advanced into the Fem Art (right) using the Percuta neous technique. A JL 4.0 INFINITI CATHETER FR 6 was advanced over a wire. OMNIPAQUE, 350 MG, 150ML 150ML was us ed for 14:01:11 injections. Recorded Pressure: Ao, HR=66, Condition=Condition 1 14:01:53 (Aorta) Ao 168/86/119 14:02:00 1 mg VERSED given in lab by Brie Moreno, RUTH via Peripheral IV. Ordered by Uche Lozano. 14:02:06 HR=64 bpm, LEEV=038/96 mmhg, SpO2=99.0 %, Resp=15 B/min 14:03:00 The LCA was injected and visualized at various angles. OMNIPAQUE, 350 MG, 150ML 150ML used . After removing the current catheter a 3DRC INFINITI CATHETER FR 6 was advanced over a WIRE, 3MM J .035 180CM 14:03:47 180CM. 14:05:19 The RCA was injected and visualized at various angles. OMNIPAQUE, 350 MG, 150ML 150ML used . After removing the current catheter a PIGTAIL STR INFINITI CATHETER FR 6 was advanced over a WI RE, 3MMJ .035 14:05:44 180CM 180CM. Recorded Pressure: LV, HR=68, Condition=Condition 1 14:06:51 (Left Ventricle) LV 144/7/20 14:07:07 HR=71 bpm, LNQU=885/85 mmhg, SpO2=98.0 %, Resp=14 B/min 14:07:44 The LV was injected at 12 cc/sec for a total of 32. OMNIPAQUE, 350 MG, 150ML 150ML used. Recorded Pressure: LV, Ao, HR=69, Condition=Condition 1 14:08:29 (Left Ventricle) LV 141/11/30, (Aorta) Ao 146/71/103 14:08:45 Catheter was removed 14:09:39 An injection in the Fem Art (right) was made through the SHEATH, FR6.5 PRELUDE 11CM FR 6.5. 14:10:10 Case End (Physician broke scrub) Assessment: Final Case, HR=63 BPM, KQNV=084/94 mmhg, Edema=None, Color=Normal, Skin = Warm, Dr y Right Pulses: Rafy Ped=2, Femoral=2 14:12:19 Left Pulses: Rafy Ped=2, Femoral=2 Neurological: State=Alert, Ox3, LAW Respiration: Resp=17 B/min, YcB7=559 %, O2=2 lpm 14:12:25 Catheter(s) removed without difficulty 14:12:43 HR=69 bpm, WQLQ=192/96 mmhg, SpO2=98.0 % 14:13:23 Case End (Physician broke scrub) 14:13:24 Sterile dressing applied to site 14:13:34 No case complications noted. 14:13:37 Cine recording checked. 14:13:39 Bedside Report will be given. 14:13:43 A Left Heart Cath was performed. 14:17:05 HR=68 bpm, PPOD=798/93 mmhg, SpO2=97.0 % 14:18:32 VASCADE, FR6 CLOSURE SYSTEM FR 6\\7 placement in the Fem Art (right) 14:22:06 CCBS=440/103 mmhg 14:25:04 Vitals capture stopped. 14:25:59 Patient moved to [facility] End Study - Contrast Media Used In Study Contrast Total Opened (mL) Total Used (mL) Total Wasted (mL) Omnipaque 80 80 0 End Study - Maximum Contrast Load Max Contrast Load (mL) 304.5 End Study - Radiation Exposure Fluoro Time (minutes) 1.7 End Study - Sheaths Sheaths Pulled By Sheath Hold Time (min) Adelia Neal End Study - Patient Disposition Complications Transferred To Interventional Outcome No Telemetry Bed No attempt made
--- NOTE | 2018-02-22 14:29 | P.PNCA ---
Subjective Interval history: No CP or dyspnea today. Physical Exam Vital signs: Vital Signs 02/21/18 19:47 02/22/18 00:00 02/22/18 02:05 Temperature 98.2 F 98.7 F Pulse Rate 82 71 70 Respiratory Rate 16 18 Blood Pressure 200/98 H 176/95 H Pulse Oximetry 97 97 02/22/18 03:05 02/22/18 04:00 02/22/18 07:22 Temperature 98.1 F Pulse Rate 75 76 79 Respiratory Rate 16 20 Blood Pressure 190/98 H 150/73 H Pulse Oximetry 94 L 02/22/18 08:00 02/22/18 12:00 Temperature 98.2 F Pulse Rate 74 66 Respiratory Rate 18 Blood Pressure 133/74 Pulse Oximetry 97 97 Intake & Output 02/21/18 02/22/18 02/22/18 18:59 06:59 18:59 Intake Total 800 / 800 1000 / 1000 200 / 200 Balance 800 / 800 1000 / 1000 200 / 200 Intake: IV 800 / 800 1000 / 1000 200 / 200 NS Inj 1,000 ML @ 60 mls/hr IV. 800 / 800 1000 / 1000 200 / 200 CONT .[id number] [facility] Rx#:[id number] Other: # Voids 2 Date of Last Bowel Movement 02/20/18 02/20/18 - Constitutional no acute distress - Routine Neck Exam Absent: JVD - Routine Respiratory Exam Present: CTA bilaterally - Routine Cardiovascular Exam Present: RRR, S1, S2. Absent: murmur, gallop - Routine Abdominal Exam Present: soft, normoactive bowel sounds. Absent: tenderness, organomegaly - Routine Extremities Exam Absent: cyanosis, clubbing, edema Assessment and Plan - Assessment (1) CAD (coronary artery disease) Code(s): I25.10 - Atherosclerotic heart disease of [place] coronary artery without angina pectoris Status: Chronic Plan: Stable overnight. No further atypical CP. Cath today, done due to abnormal nuclear stress testing, unremarkable. Diagonal stent widely patient. Minimal CAD. EF 55%. (2) Cardiomyopathy Code(s): I42.9 - Cardiomyopathy, unspecified Status: Chronic Plan: EF 45% by echo last month. EF 55% by cath today. No CHF. Recommend continue beta heather, AURY-I. (3) Hypertension Code(s): I10 - Essential (primary) hypertension Status: Chronic Plan: Stable. Normotensive. - Plan Code Status: full code Discussed Condition With: patient (1) CAD (coronary artery disease) Qualifiers: Coronary Disease-Associated Artery/Lesion type: [place] artery [place] vs. transplanted heart: [place] heart Associated angina: with unspecified angina Qualified Code(s): I25.119 - Atherosclerotic heart disease of [place] coronary artery with unspecified angina pectoris (2) Cardiomyopathy Qualifiers: Cardiomyopathy type: unspecified Qualified Code(s): I42.9 - Cardiomyopathy, unspecified (3) Hypertension Qualifiers: Hypertension type: essential hypertension Qualified Code(s): I10 - Essential (primary) hypertension
--- NOTE | 2018-02-22 15:21 | MA ---
cc: Uche Lozano MD DATE: 02/22/2018 PROCEDURE: Left heart catheterization, selective coronary angiography, left ventriculography. PROCEDURE NOTES: The patient was brought to the cardiac catheterization laboratory in a fasting state after having signed informed consent. The right groin was prepped and draped as per policy and anesthetized with 1% lidocaine. Arterial access was obtained via the right femoral artery and a 6-Italian sheath placed. Coronary arteriography was performed using 6-Italian Janay left 4.0 and right progressive catheters. Left ventriculography was done using a standard 6-Italian pigtail. There were no apparent immediate complications. Her arteriotomy site was closed with VASCADE with the achievement of good hemostasis. HEMODYNAMIC DATA: Left ventricle 120 with an end diastolic pressure of 15. Aorta 120/76 with a mean of 88. There was no significant transvalvular aortic gradient on pullback of the pigtail catheter. CORONARY ARTERIOGRAPHY: The left main has very minimal luminal irregularities. The left anterior descending is a medium-sized vessel giving rise to a small to medium sized diagonal. There is a stent in the mid diagonal, and the stent is widely patent. The rest of the diagonal has minimal luminal irregularities. The proximal LAD has minimal luminal irregularities. There was somewhat eccentric, up to 15% stenosis, in the mid LAD. The distal LAD is normal. The left circumflex is a medium-sized vessel giving rise to a medium size obtuse marginal. No disease is seen in the left circumflex system. The right coronary artery is a medium sized dominant vessel with no disease. LEFT VENTRICULOGRAPHY: Contrast injection of the left ventricle reveals no segmental wall motion abnormalities. Ejection fraction is estimated at 55%. There may be mild mitral regurgitation. CONCLUSIONS: 1. Widely patent diagonal stent placed last month. 2. Overall, minimal coronary artery disease. 3. Normal left ventricular function with estimated ejection fraction of 55%. 4. Mild mitral regurgitation. Uche Lozano MD Pamela/ , 02:33 PM , 02:40 PM [facility]
--- NOTE | 2018-02-22 16:00 | P.PNADD ---
Addendum to Inpatient Note Reason for Addendum: Additional Documentation Additional information: cardiac cath negative right groin no heamtoma good pulses patient shun ff up with PCP- Dr Shah advise alcohol cessation
[2018-02-22] MEDS ORDERED: Iohexol 350 MG/ML 100 ML Vial (for Cath Lab) IVCONTRAST ONE (16:04)
== END 2018-02-22 16:49 | disposition home or self-care (01) ==
LOC: HCIS 18:35 → NEDA 18:35 → NEPE 18:35 → NEDA 21:54 → NEPGCP 22:06 → HCIS 02-22 13:36
PROVIDERS: ADMIT Internal Medicine; ATTEND Internal Medicine